=== PATIENT | female | born 1975 | race African-American/Black ===

== ENCOUNTER 2016-05-28 07:19 | Day surgery (SDC) | payer MEDICARE, MEDICAID ==
[~2016-05-28] VITALS: Ht 160 cm; Wt 72.7 kg
[~2016-05-28 07:19] MED LIST: ADVA500A INH; ALBUAER3 INH; DICY20TA10 PO; DULO1CAP3 PO; METH500T3 PO; MIRA50TA PO; NEUR300C PO; NORT25CA PO; OMEP40CA2 PO; OXYC1CAP PO; QUET1TAB7 PO; SPIRCAP INH; SUCR1TAB PO; VARE1 PO; ZOFR4SOL PO
[2016-05-28 07:35] VITALS: BP 133/86; PULSE 82; RESP 20; TEMP 98.5; O2SAT 98
[2016-05-28] MEDS ORDERED: VARE1 PO (07:42)
[2016-05-28 08:42] LABS: HEMATOCRIT 28.1 % (35.0-46.0); HEMO FLAGS AUTO DIFF; MEAN CELL VOLUME 74.9 FL (80.0-100.0); MEAN CORPUSCULAR HEMOGLOBIN 23.9 PG (27.0-34.0); MEAN CORPUSCULAR HGB CONC 31.9 % (32.0-36.0); PLATELET COUNT 311 TH/MM3 (150-450); RED BLOOD COUNT 3.75 MIL/MM3 (4.00-5.30); RED CELL DISTRIBUTION WIDTH 20.4 % (11.6-17.2); WHITE BLOOD COUNT 10.1 TH/MM3 (4.0-11.0)
[2016-05-28 08:57] LABS: APTT (PATIENT) 28.2 SEC (24.3-30.1); PROTHROMBIN TIME - PATIENT 10.5 SEC (9.8-11.6)
[2016-05-28] MEDS ORDERED: SODIUM CHLOR 0.9% 1000 ML INJ 1,000 ML IV SCH (09:00)
[2016-05-28 09:04] LABS: BICARBONATE 30.4 MEQ/L (21.0-32.0); POTASSIUM 3.5 MEQ/L (3.5-5.1)
[2016-05-28 09:14] LABS: BASOPHILS 1 % (0-2); EOSINOPHILS 2 % (0-4); NEUTROPHIL # MANUAL DIFF 7.2 TH/MM3 (1.8-7.7); POLYS (SEG NEUTROPHILS) 71 % (16-70); TARGET CELLS 1+ (NORMAL); WBC DIFF SAMPLE 100
[2016-05-28 09:15] LABS: PLATELET ESTIMATE SMEAR NORMAL (NORMAL); PLATELET MORPHOLOGY NORMAL (NORMAL); SCAN/DIFF FINAL DIFF MANUAL
[2016-05-28] MEDS ORDERED: LORazepam 2 MG/ML VIAL ONE (09:26)
[2016-05-28 10:00] VITALS: BP 126/82; PULSE 79; RESP 16; TEMP 98.6; O2SAT 96
--- NOTE | 2016-05-28 10:07 | PD.RAD ---
Post Procedure Progress Note Pre Procedure Diagnosis: (1) Pseudotumor cerebri Post Procedure Diagnosis: (1) Pseudotumor cerebri Procedure Date: May 28, 2016 Supervising Radiologist: Vahe Brizuela Proceduralist/Assist: Natasha Haro, RT(R)(CV), Bree Bravo RT(R) Anesthesia: Local Plan of Activity Patient to Unit: ROPU Patient Condition: Good See PACS Report for procedural detail/treatment Spinal Procedure Lumbar Puncture L1-L2 Fluid Removal (CCs): 21 Fluid Description: Clear Puncture Time: 09:50 Findings: OP 25 cm H2O CP 9.5 cm H2O Vahe Brizuela MD May 28, 2016 10:07
--- NOTE | 2016-05-28 10:55 | RADRPT ---
EXAM DATE/TIME: 05/28/2016 09:30 [facility] COMPARISON: LUMBAR PUNCTURE W/OPENING PRESSURES, January 31, 2015, 8:48. INDICATIONS : Patient with history of pseudotumor cerebri in need of lumbar puncture. MEDICAL HISTORY : Asthma, COPD, Migraines, GERD, Back pain, Benign intracranial hypertension SURGICAL HISTORY : ANTHROPOLOGICAL LINGUIST shunt placement, Multiple lumbar surgeries, Bronchoscopy ENCOUNTER: Subsequent ACUITY: >1 year PAIN SCORE: 0/10 LUMBAR PUNCTURE TIME: 0950 hours FLUORO TIME: 2.4 minutes IMAGE SERIES: 0 ACCESS LEVEL: L1-2 OPENING PRESSURE: 25 cm of water CLOSING PRESSURE: 9.5 cm of water FLUID: 21 cc of clear CSF was collected and sent to the laboratory for analysis. PROCEDURE : 1. Fluoroscopic guided lumbar puncture. 2. Recording of opening pressure. The risks, benefits and alternatives to the procedure were explained and verbal and written consent w as obtained. The site was prepped in sterile fashion. Full sterile technique was used, including ca p, mask, sterile gloves and gown and a large sterile sheet. Hand hygiene and 2% chlorhexidine and/or betadine/alcohol prep was utilized per protocol for cutaneous antisepsis. The skin and subcutaneous tissues were infiltrated with local anesthetic solution. With fluoroscopic guidance the lumbar thecal sac was punctured at the above level described above and the opening pressure was recorded. The above described fluid was removed without difficulty. The patient tolerated the procedure well and there were no complications. CONCLUSION: Uncomplicated fluoroscopically guided lumbar puncture with pressures as above. Vahe Brizuela MD on May 28, 2016 at 10:53 Board Certified Radiologist. This report was verified electronically.
[2016-05-28 11:20] LABS: GROSS BLOOD TUBE #1 0 (0); GROSS BLOOD TUBE #2 0 (0); GROSS BLOOD TUBE #3 0 (0); SUPERNATE COLOR TUBE #1 CLEAR (CLEAR); SUPERNATE COLOR TUBE #2 CLEAR (CLEAR); SUPERNATE COLOR TUBE #3 CLEAR (CLEAR); VOLUME TUBE # 1 7.9 ML; VOLUME TUBE # 2 7.8 ML; WBC TUBE #1 1 /MM3 (0-10)
[2016-05-28 11:21] LABS: CSF LYMPHOCYTES 100 %; CSF NEUTROPHILS 0 %
[2016-05-28 11:27] LABS: GROSS BLOOD TUBE #3 0 (0); SUPERNATE COLOR TUBE #3 CLEAR (CLEAR)
[2016-05-28 11:28] LABS: CSF LYMPHOCYTES 0 %; CSF NEUTROPHILS 0 %; WBC TUBE #3 0 /MM3 (0-10)
[2016-05-28 12:00] VITALS: BP 119/76; PULSE 72; RESP 16; O2SAT 96
[2016-07-11] MEDS ORDERED: LIDO1%30P SUBMUCOS (12:31)
[2016-07-19] MEDS ORDERED: DULO1CAP3 PO (11:07)
== END 2016-05-28 12:20 | disposition home or self-care (01) ==
LOC: HRAD 07:19 → HRIP 07:20 → HRAD 12:20
PROVIDERS: ATTEND Specialist
DX: G93.2 Benign intracranial hypertension (principal); Z79.899 Other long term (current) drug therapy
CPT/HCPCS: 62270; 77003; 80048; 82945; 84157; 85007; 85027; 85610; 85730; 87070; 87205; 89051; J2060; J7030; 76937

== ENCOUNTER 2016-12-26 04:25 | Inpatient (IN) | payer MEDICARE, MEDICAID ==
[~2016-12-26] VITALS: Ht 165.1 cm; Wt 71.6 kg
[2016-12-26] VITALS (7 sets, daily range): BP systolic 108–136; BP diastolic 67–89; PULSE 60–75; RESP 16–18; TEMP 98–98.8; O2SAT 98–100
[2016-12-26] MEDS ORDERED: IOHEXOL 350 MG/ML 10 ML VIAL (for RAD DIAG) IVCONTRAST ONE (05:29)
[2016-12-26] MEDS ORDERED: SODIUM CHLOR 0.9% 1000 ML INJ 1,000 ML IV ONE (05:30)
[2016-12-26] MEDS ORDERED: ONDANSETRON HCL 4 MG/2 ML VIAL IV ONE (05:30)
[2016-12-26] MEDS ORDERED: HYDROmorphone HCL PF 1 MG/ML VIAL IV PUSH ONE ×2 (05:45→06:30)
--- NOTE | 2016-12-26 05:46 | RADRPT ---
EXAM DATE/TIME: 12/26/2016 05:18 [facility] COMPARISON: No previous studies available for comparison. INDICATIONS : Abdominal pain. IV CONTRAST: 96 cc Omnipaque 350 (iohexol) IV ORAL CONTRAST: No oral contrast ingested. RADIATION DOSE: CTDIvol (mGy) MEDICAL HISTORY : Chronic obstructive pulmonary disease. Gastroesophageal reflux disease. Asthma SURGICAL HISTORY : Tubal ligation. THAI MASSEUR shunt ENCOUNTER: Initial ACUITY: 4 - 6 days PAIN SCALE: 6/10 LOCATION: abdomen TECHNIQUE: Volumetric scanning of the abdomen and pelvis was performed. Using automated exposure control and ad justment of the mA and/or kV according to patient size, radiation dose was kept as low as reasonably achievable to obtain optimal diagnostic quality images. DICOM format image data is available electro nically for review and comparison. FINDINGS: There is bibasilar edema versus pneumonia. The liver and spleen are normal in size and no focal defec ts are identified. The gallbladder is absent. The pancreas demonstrates normal contour without eviden ce of mass or ductal dilatation. The intrahepatic ducts and common bile duct are prominent which may reflect reservoir effect. Shunt catheter is present entering the upper abdomen in the midline. There are loops of the catheter protruding into a subcutaneous fluid collection measuring 5 cm in diameter. The catheter tip terminates in the lower abdomen. The adrenal glands and kidneys appear normal bilat erally. No hydronephrosis or mass lesions are identified. Examination of the pelvis demonstrates no evidence of free fluid or pelvic mass. No abnormally enlarg ed inguinal or retroperitoneal lymph nodes are present. The bladder is unremarkable. CONCLUSION: 1. No evidence of acute abdominal or pelvic process. No masses are identified. 2. Shunt catheter as above herniating into the subcutaneous tissues containing fluid. Rickie Ford MD on December 26, 2016 at 5:40 Board Certified Radiologist. This report was verified electronically.
[2016-12-26 05:50] LABS: ALT (GPT) 9 U/L (10-53); ANION GAP 7 MEQ/L (5-15); AST (GOT) 12 U/L (15-37); BICARBONATE 29.4 MEQ/L (21.0-32.0); BLOOD UREA NITROGEN 4 MG/DL (7-18); CHLORIDE 104 MEQ/L (98-107); GLOMERULAR FILTRATION RATE 146 ML/MIN (>89); POTASSIUM 3.3 MEQ/L (3.5-5.1); SODIUM (NA) 140 MEQ/L (136-145)
[2016-12-26 05:54] LABS: ALKALINE PHOSPHATASE 115 U/L (45-117); TOTAL BILIRUBIN ADULT 0.1 MG/DL (0.2-1.0)
[2016-12-26 06:03] LABS: HEMATOCRIT 31.9 % (35.0-46.0); MEAN CELL VOLUME 77.8 FL (80.0-100.0); MEAN CORPUSCULAR HEMOGLOBIN 25.3 PG (27.0-34.0); MEAN CORPUSCULAR HGB CONC 32.5 % (32.0-36.0); PLATELET COUNT 414 TH/MM3 (150-450); RED CELL DISTRIBUTION WIDTH 18.4 % (11.6-17.2); WHITE BLOOD COUNT 9.8 TH/MM3 (4.0-11.0)
[2016-12-26 06:07] LABS: HEMO FLAGS AUTO DIFF
--- NOTE | 2016-12-26 06:07 | PD ---
HPI Chief Complaint: Abdominal Pain Time Seen by Provider: 04:36 Travel History International Travel<30 days: No Contact w/Intl Traveler<30days: No Traveled to known affect area: No History of Present Illness HPI So 41 year-old woman presents to the emergency department complaining of pain nausea vomiting and tender swelling in her abdominal wall. She had a AUTOMOTIVE WINDOW TINTER shunt revised by a physician Dr. Pennington in July. Starting in August she started getting pain and tenderness in her abdominal wall. She was seen in [facility] and had a CT scan that showed loculated fluid collection in the anterior abdominal wall August 28. Of note, she is under a different ) for that visit. She states that she was told to she states she has followed up with her neurosurgeon who states that she needs to see a general surgeon. She sees Dr. Vences for neurology. She states that despite this is been unable follow-up with a neurosurgeon. Over the past week she's had progressive worsening nausea vomiting and abdominal pain is been unable tolerate by mouth. History Past Medical History Narrative Medical Sarcoidosis COPD Pseudotumor Tetanus Vaccination: Unknown LMP: CURRENT Menopausal: No : 4 Para: 3 Social History Alcohol Use: No Tobacco Use: Yes (/2 PPD) Allergies-Medications (Allergen,Severity, Reaction): Coded Allergies: morphine (Unverified Allergy, Severe, WELNORI, 12/26/16) MRI PRECAUTION (Verified Adverse Reaction, Severe, SPETZLER SHUNT VALVE PER YAMILE. PER INTEGRA NOT COMPAT., 12/26/16) Reported Meds & Prescriptions Reported Meds & Active Scripts Active Duloxetine DR (Duloxetine HCl) 60 Mg Capdr 60 Mg PO DAILY Please return to clinic for annual exam and labs. Spiriva Handihaler (Tiotropium Inh) 18 Mcg Cap 18 Mcg INH DAILY Proair Hfa 8.5 GM Inh (Albuterol Sulfate) 90 Mcg/Act Aer 2 Puff INH Q6H PRN 108 mcg/actuation Quetiapine (Quetiapine Fumarate) 25 Mg Tab 25 Mg PO HS Nortriptyline (Nortriptyline HCl) 25 Mg Cap 25 Mg PO HS Reported Chantix (Varenicline) 1 Mg Tab 1 Mg PO BIDPC Advair Diskus Inh (Fluticasone-Salmeterol Inh) 500-50 Mcg/Blist Aer 1 Puff INH BID Rinse mouth after use. Dicyclomine (Dicyclomine HCl) 20 Mg Tab 20 Mg PO BID Sucralfate 1 Gm Tab 1 Gm PO TIDACHS on empty stomach Omeprazole 40 Mg Cap 40 Mg PO BIDAC Zofran Liq (Ondansetron HCl) 4 Mg/5 Ml Soln 1 Tab PO TID PRN Oxycodone (Oxycodone HCl) 5 Mg Cap 5 Mg PO BID PRN Methocarbamol 500 Mg Tab 500 Mg PO TID Myrbetriq (Mirabegron) 50 Mg Tab 50 Mg PO DAILY Neurontin (Gabapentin) 300 Mg Cap 300 Mg PO TID Review of Systems Except as stated in HPI: all other systems reviewed are Neg Physical Exam Narrative GENERAL: Generally well-appearing, no acute distress. SKIN: Decreased skin turgor. HEAD: Atraumatic. Normocephalic. EYES: Pupils equal and round. No scleral icterus. No injection or drainage. ENT: No nasal bleeding or discharge. Mucous membranes pink and moist. NECK: Trachea midline. No JVD. CARDIOVASCULAR: Regular rate and rhythm. No murmur appreciated. RESPIRATORY: No accessory muscle use. Clear to auscultation. Breath sounds equal bilaterally. GASTROINTESTINAL: Abdomen is flat and soft. Well-healed surgical scars. On the left side of the abdomen there is a firm palpable obvious nodule in the abdominal wall that Protrudes almost like a ventral hernia however it firm, tender, and is on attached to the underlying abdomen. MUSCULOSKELETAL: No obvious deformities. No clubbing. No cyanosis. No edema. Data Data Last Documented VS Vital Signs Date Time Temp Pulse Resp B/P (MAP) Pulse Ox O2 Delivery O2 Flow Rate FiO2 12/26/16 06:10 70 16 133/75 (94) 98 Room Air 12/26/16 04:27 98.5 Orders Orders Complete Blood Count With Diff (12/26/16 05:10) Comprehensive Metabolic Panel (12/26/16 05:10) Iv Access Insert/Monitor (12/26/16 05:10) Ct Abd/Pel W Iv Contrast(Rout) (12/26/16 ) Sodium Chlor 0.9% 1000 Ml Inj (Ns 1000 M (12/26/16 05:30) Ondansetron Inj (Zofran Inj) (12/26/16 05:30) Iohexol 350 Inj (Omnipaque 350 Inj) (12/26/16 05:29) Hydromorphone Pf Inj (Dilaudid Pf Inj) (12/26/16 05:45) Admit Order (Ed Use Only) (12/26/16 ) Vital Signs (Adult) Q4H (12/26/16 06:16) Diet Npo (12/26/16 Breakfast) Activity Oob With Assistance (12/26/16 06:16) Notify Dr: Other (12/26/16 06:16) Hydromorphone Pf Inj (Dilaudid Pf Inj) (12/26/16 06:30) Consult Neurology (12/26/16 ) Consult General Surgery (12/26/16 ) Labs Laboratory Tests Test 12/26/16 05:20 White Blood Count 9.8 TH/MM3 Red Blood Count 4.10 MIL/MM3 Hemoglobin 10.4 GM/DL Hematocrit 31.9 % Mean Corpuscular Volume 77.8 FL Mean Corpuscular Hemoglobin 25.3 PG Mean Corpuscular Hemoglobin Concent 32.5 % Red Cell Distribution Width 18.4 % Platelet Count 414 TH/MM3 Mean Platelet Volume 8.8 FL CBC Comment AUTO DIFF Blood Urea Nitrogen 4 MG/DL Creatinine 0.56 MG/DL Random Glucose 89 MG/DL Total Protein 7.4 GM/DL Albumin 3.2 GM/DL Calcium Level 8.2 MG/DL Alkaline Phosphatase 115 U/L Aspartate Amino Transf (AST/SGOT) 12 U/L Alanine Aminotransferase (ALT/SGPT) 9 U/L Total Bilirubin 0.1 MG/DL Sodium Level 140 MEQ/L Potassium Level 3.3 MEQ/L Chloride Level 104 MEQ/L Carbon Dioxide Level 29.4 MEQ/L Anion Gap 7 MEQ/L Estimat Glomerular Filtration Rate 146 ML/MIN [facility] Medical Decision Making Medical Screen Exam Complete: Yes Emergency Medical Condition: Yes Interpretation(s) LABS: CBC is pending CMP unremarkable CT abdomen and pelvis: No evidence acute abdominal process. Shunt catheter herniating into the subcutaneous tissues containing fluid. Differential Diagnosis Shunt catheter obstruction, vomiting, CSF Roxann, other Narrative Course 41 year-old woman with what appears to be a shunt catheter malfunction with CSF Roxann involving the anterior abdominal wall, there for some time but getting progressively worse and now resulting in intractable pain and vomiting. I spoke with Dr. Vences, with neurology, recommends admission for routine neurosurgery consultation, neurology consultation, may need surgical revision or may need referral for outpatient follow-up. Diagnosis Primary Impression: Intractable abdominal pain Additional Impression: Mechanical complication-ventricular(CSF) communicating shunt Admitting Information Admitting Physician Requests: Boby Fritz MD Dec 26, 2016 06:07
[2016-12-26] MEDS ORDERED: SODIUM CHLOR 0.9% 1000 ML INJ 1,000 ML IV SCH (06:29)
[2016-12-26] MEDS ORDERED: FAMOTIDINE 20 MG/2 ML VIAL IV PUSH SCH (06:30)
[2016-12-26] MEDS ORDERED: TRIMETHOBENZAMIDE INJ 200 MG/2 ML VIAL IM PRN (06:30)
[2016-12-26] MEDS ORDERED: LACTULOSE SYRUP 20 GM/30 ML CUP PO PRN (06:30)
[2016-12-26] MEDS ORDERED: SENNOSIDES 8.6 MG TAB PO PRN (06:30)
[2016-12-26] MEDS ORDERED: BISACODYL 10 MG SUPP RECTAL PRN (06:30)
[2016-12-26] MEDS ORDERED: SODIUM CHLORIDE 0.9% FLUSH 10 ML FLUSH IV FLUSH PRN (06:30)
[2016-12-26] MEDS ORDERED: MAGNESIUM HYDROXIDE SUSP 30 ML CUP PO PRN (06:30)
[2016-12-26 06:50] LABS: EOSINOPHILS 1 % (0-4); NEUTROPHIL # MANUAL DIFF 5.9 TH/MM3 (1.8-7.7); POLYS (SEG NEUTROPHILS) 60 % (16-70); WBC DIFF SAMPLE 100
[2016-12-26 06:51] LABS: OVALOCYTES 1+ (NORMAL); TARGET CELLS 1+ (NORMAL)
[2016-12-26 06:52] LABS: TEARDROP RBCS 1+ (NORMAL)
[2016-12-26 06:53] LABS: PLATELET ESTIMATE SMEAR NORMAL (NORMAL); PLATELET MORPHOLOGY ENLARGED (NORMAL); SCAN/DIFF FINAL DIFF MANUAL
[2016-12-26] MEDS ORDERED: POTASSIUM CHLORIDE 10 MEQ CONTROLLED RELEASE TAB PO ONE (08:45)
[2016-12-26] MEDS ORDERED: ALBUTEROL SULFATE 90 MCG/ACT HFA 8 GM INHALER INH PRN (08:45)
[2016-12-26] MEDS: NS + KCL 20 MEQ INJ 1,000 ML IV SCH ×2 (08:58→21:45)
[2016-12-26] MEDS: DOCUSATE SODIUM 50 MG/SENNA 8.6 MG TAB PO SCH ×2 (08:59→21:47)
[2016-12-26] MEDS: ACETAMINOPHEN 325 MG TAB PO PRN (08:59)
[2016-12-26] MEDS: METHOCARBAMOL 500 MG TAB PO SCH ×3 (08:59→18:41)
[2016-12-26] MEDS: GABAPENTIN 300 MG CAP PO SCH ×3 (08:59→18:41)
[2016-12-26] MEDS ORDERED: NON-FORMULARY DRUG (Fluticasone-Salmeterol Inh (Advair Diskus Inh) 1 PUFF) INH SCH (09:00)
[2016-12-26] MEDS: TIOTROPIUM BROMIDE 18 MCG INH INH SCH (09:00)
[2016-12-26] MEDS: ONDANSETRON HCL 4 MG/2 ML VIAL IVP PRN (09:00)
[2016-12-26] MEDS: SODIUM CHLORIDE 0.9% FLUSH 10 ML FLUSH IV FLUSH SCH ×2 (09:00→21:46)
--- NOTE | 2016-12-26 09:34 | HHI.HP ---
[facility] Unknown Admission Diagnosis intractable pain, abdominal wall CSFoma Diagnoses: Chief Complaint: abdominal pain Travel History International Travel<30 Days: No Contact w/Intl Traveler <30 Da: No Traveled to Known Affected Are: No History of Present Illness Written by Bree Lamar, acting as scribe for Dr. Ta on 12/26/16 at 09: 29. This note was transcribed by scribe Bree Lamar. I, Dr. Naveen Ta personally performed the history, physical exam, and medical decision making; and confirmed the accuracy of the information in the transcribed note. Authenticated by Dr. Naveen Ta on 12/26/16 at 09:38. 41-year-old female with history of pseudotumor cerebri s/p HELICOPTER CREW CHIEF shunt, sarcoidosis , COPD, tobacco use, presents with ongoing abdominal pain, nausea, and vomiting. The patient reports diffuse burning abdominal pain associated with nausea and vomiting. She has not been able to tolerate oral intake for 4 days. She has been taking Lortab at home with no relief of the pain. Denies fevers/ chills. She also reports constant sharp stabbing left sided headache. Denies any visual changes, lightheadedness, or dizziness. She denies any dysuria or suprapubic pain. She also reports constipation with no bowel movement in 1 week. The patient reports she has been seeing Dr. Vences who has referred her to general surgery however she has had no success. She states she's also discussed with her neurosurgeon Dr. Pennington in [place], [place] who reportedly refuses to see the patient. The patient has no other medical complaints at this time including no chest pain, shortness of breath, or urinary complaints. Review of Systems Except as stated in HPI: all other systems reviewed are Neg Past Family Social History Past Medical History Pseudotumor cerebri Sarcoidosis COPD Past Surgical History HELICOPTER CREW CHIEF shunt placement and revisions Tubal ligation Bronchoscopy Neck surgery Multiple lumbar surgeries Lung biopsy Cholecystectomy Reported Medications Duloxetine DR (Duloxetine HCl) 60 Mg Capdr 60 Mg PO DAILY Please return to clinic for annual exam and labs. Spiriva Handihaler (Tiotropium Inh) 18 Mcg Cap 18 Mcg INH DAILY Proair Hfa 8.5 GM Inh (Albuterol Sulfate) 90 Mcg/Act Aer 2 Puff INH Q6H PRN 108 mcg/actuation Quetiapine (Quetiapine Fumarate) 25 Mg Tab 25 Mg PO HS Nortriptyline (Nortriptyline HCl) 25 Mg Cap 25 Mg PO HS Ativan (Lorazepam) 0.5 Mg Tab 0.5 Mg PO Q8H PRN Oxycodone (Oxycodone HCl) 10 Mg Tab 10 Mg PO Q6H PRN Fioricet (Tgaodsuziy-Vlypxpmrkpbqx-Sqrnclfj) 50-300-40 Mg Cap 2 Cap PO Q4H PRN Chantix (Varenicline) 1 Mg Tab 1 Mg PO BIDPC Advair Diskus Inh (Fluticasone-Salmeterol Inh) 500-50 Mcg/Blist Aer 1 Puff INH BID Rinse mouth after use. Dicyclomine (Dicyclomine HCl) 20 Mg Tab 20 Mg PO BID Omeprazole 40 Mg Cap 40 Mg PO BIDAC Methocarbamol 500 Mg Tab 500 Mg PO TID Myrbetriq (Mirabegron) 50 Mg Tab 50 Mg PO DAILY Neurontin (Gabapentin) 300 Mg Cap 300 Mg PO TID Allergies: Coded Allergies: morphine (Unverified Allergy, Severe, WELTS, 12/26/16) MRI PRECAUTION (Verified Adverse Reaction, Severe, SPETZLER SHUNT VALVE PER YAMILE. PER [employer]TEGRA NOT COMPAT., 12/26/16) Active Ordered Medications Current Medications Medications (Trade) Dose Ordered Sig/Esteban Route Start Time Stop Time Status Last Admin (NS Flush) 2 ml UNSCH PRN IV FLUSH 12/26/16 06:30 (NS Flush) 2 ml BID IV FLUSH 12/26/16 09:00 (Zofran Inj) 4 mg Q6H PRN IVP 12/26/16 06:30 12/26/16 09:00 (Tylenol) 650 mg Q6H PRN PO 12/26/16 06:30 12/26/16 08:59 (Roxicodone) 5 mg Q4H PRN PO 12/26/16 06:30 (Nadeen-Colace) 1 tab BID PO 12/26/16 09:00 12/26/16 08:59 (Milk Of Magnesia Liq) 30 ml Q12H PRN PO 12/26/16 06:30 (Senokot) 17.2 mg Q12H PRN PO 12/26/16 06:30 (Dulcolax Supp) 10 mg DAILY PRN RECTAL 12/26/16 06:30 (Lactulose Liq) 30 ml DAILY PRN PO 12/26/16 06:30 (Dilaudid Pf Inj) 0.5 mg Q4H PRN IV PUSH 12/26/16 06:30 (Tigan Inj) 200 mg Q6H PRN IM 12/26/16 06:30 (Bentyl) 20 mg BID PO 12/26/16 09:00 12/26/16 09:51 (Neurontin) 300 mg TID PO 12/26/16 09:00 12/26/16 08:59 (Robaxin) 500 mg TID PO 12/26/16 09:00 12/26/16 08:59 (Spiriva Inh) 18 mcg DAILY INH 12/26/16 09:00 Potassium Chloride/Sodium Chloride 1,000 ml @ 84 mls/hr [id number] IV 12/26/16 08:45 12/26/16 08:58 (Proair Hfa Inh) 2 puff Q6H PRN INH 12/26/16 08:45 Non-Formulary Medication 1 puff BID INH 12/26/16 09:00 (Roxicodone) 10 mg Q4H PRN PO 12/26/16 09:45 12/26/16 11:11 (Cymbalta Dr) 60 mg DAILY PO 12/27/16 09:00 (Ativan) 0.5 mg Q8H PRN PO 12/26/16 11:00 (Pamelor) 25 mg HS PO 12/26/16 21:00 (SEROquel) 25 mg HS PO 12/26/16 21:00 Patient Own Medication PT OWN MED: NOAM... Q4H PRN PO 12/26/16 12:15 Future Hold (Detrol La) 4 mg DAILY PO 12/27/16 09:00 (Protonix Inj) 40 mg Q12H IV PUSH 12/26/16 12:15 UNV (Carafate Liq) 1 gm ACHS PO 12/26/16 17:00 UNV Family History Mother with lymphoma Grandmother with CVA and diabetes Grandfather with colorectal cancer, Social History Smokes tobacco 1/2 PPD Denies any alcohol or illicit drug use Physical Exam Vital Signs Vital Signs Date Time Temp Pulse Resp B/P (MAP) Pulse Ox O2 Delivery O2 Flow Rate FiO2 12/26/16 08:30 98.2 60 16 136/80 (98) 100 12/26/16 06:10 70 16 133/75 (94) 98 Room Air 12/26/16 04:35 16 12/26/16 04:27 98.5 74 16 129/79 (96) 100 Physical Exam GENERAL: Well-nourished, well-developed middle aged female patient in [facility]. SKIN: Warm and dry. No rash. HEAD: Normocephalic. Atraumatic. EYES: Pupils equal and round. No scleral icterus. No injection or drainage. ENT: No nasal bleeding or discharge. Mucous membranes pink and moist. NECK: Supple. Trachea midline. CARDIOVASCULAR: Regular rate and rhythm. S1, S2 noted. No murmur appreciated. RESPIRATORY: No accessory muscle use. Clear to auscultation. Breath sounds equal bilaterally. GASTROINTESTINAL: Abdomen soft, nondistended, mild diffuse TTP with shunt protrusion into abdominal wall. Normoactive bowel sounds x4. MUSCULOSKELETAL: No obvious deformities. Extremities without clubbing, cyanosis , or edema. NEUROLOGICAL: Awake and alert. No obvious cranial nerve deficits. Motor grossly within normal limits. Moves all extremities spontaneously. Normal speech. PSYCHIATRIC: Tearful mood; insight and judgment normal. Laboratory Laboratory Tests Test 12/26/16 05:20 White Blood Count 9.8 Red Blood Count 4.10 Hemoglobin 10.4 Hematocrit 31.9 Mean Corpuscular Volume 77.8 Mean Corpuscular Hemoglobin 25.3 Mean Corpuscular Hemoglobin Concent 32.5 Red Cell Distribution Width 18.4 Platelet Count 414 Mean Platelet Volume 8.8 CBC Comment AUTO DIFF Differential Total Cells Counted 100 Neutrophils % (Manual) 60 Lymphocytes % 38 Monocytes % 1 Eosinophils % 1 Neutrophils # (Manual) 5.9 Differential Comment FINAL DIFF MANUAL Atypical Lymphocytes Platelet Estimate NORMAL Platelet Morphology Comment ENLARGED Target Cells 1+ Tear Drop Cells 1+ Ovalocytes 1+ Blood Urea Nitrogen 4 Creatinine 0.56 Random Glucose 89 Total Protein 7.4 Albumin 3.2 Calcium Level 8.2 Alkaline Phosphatase 115 Aspartate Amino Transf (AST/SGOT) 12 Alanine Aminotransferase (ALT/SGPT) 9 Total Bilirubin 0.1 Sodium Level 140 Potassium Level 3.3 Chloride Level 104 Carbon Dioxide Level 29.4 Anion Gap 7 Estimat Glomerular Filtration Rate 146 Result Diagram: 12/26/1620 12/26/16 0520 Imaging Last Impressions Abdomen/Pelvis CT 12/26/16 0000 Signed Impressions: Service Date/Time: Wednesday, December 26, 2016 05:18 - CONCLUSION: 1. No evidence of acute abdominal or pelvic process. No masses are identified. 2. Shunt catheter as above herniating into the subcutaneous tissues containing fluid. MD Bienvenido Otero VTE Risk Assessment Caprinoctavio VTE Risk Assessment: No/Low Risk (score <= 1) Caprini Risk Assessment Model Point Value = 1 Point Value = 2 Point Value = 3 Point Value = 5 Age 41-60 Minor surgery BMI > 25 kg/m2 Swollen legs Varicose veins or History of unexplained or recurrent spontaneous Oral contraceptives or hormone replacement Sepsis (< 1 month) Serious lung disease, including pneumonia (< 1 month) Abnormal pulmonary function Acute myocardial infarction Congestive heart failure (< 1 month) History of inflammatory bowel disease Medical patient at bed rest Age 61-74 Arthroscopic surgery Major open surgery (> 45 min) Laparoscopic surgery (> 45 min) Malignancy Confined to bed (> 72 hours) Immobilizing plaster cast Central venous access Age >= 75 History of VTE Family history of VTE Factor V Leiden Prothrombin [id number] Lupus anticoagulant Anticardiolipin antibodies Elevated serum homocysteine Heparin-induced thrombocytopenia Other congenital or acquired thrombophilia Stroke (< 1 month) Elective arthroplasty Hip, pelvis, or leg fracture Acute spinal cord injury (< 1 month) Prophylaxis Regimen Total Risk Factor Score Risk Level Prophylaxis Regimen 0-1 Low Early ambulation 2 Moderate Order ONE of the following: *Sequential Compression Device (SCD) *Heparin 5000 units SQ BID 3-4 Higher Order ONE of the following medications: *Heparin 5000 units SQ TID *Enoxaparin/Lovenox 40 mg SQ daily (WT < 150 kg, CrCl > 30 mL/min) *Enoxaparin/Lovenox 30 mg SQ daily (WT < 150 kg, CrCl > 10-29 mL/min) *Enoxaparin/Lovenox 30 mg SQ BID (WT < 150 kg, CrCl > 30 mL/min) AND/OR *Sequential Compression Device (SCD) 5 or more Highest Order ONE of the following medications: *Heparin 5000 units SQ TID (Preferred with Epidurals) *Enoxaparin/Lovenox 40 mg SQ daily (WT < 150 kg, CrCl > 30 mL/min) *Enoxaparin/Lovenox 30 mg SQ daily (WT < 150 kg, CrCl > 10-29 mL/min) *Enoxaparin/Lovenox 30 mg SQ BID (WT < 150 kg, CrCl > 30 mL/min) AND *Sequential Compression Device (SCD) Assessment and Plan Problem List: (1) vp biology shunt malfunction (2) Intractable abdominal pain ICD Code: R10.9 - Unspecified abdominal pain Status: Acute Assessment and Plan 41-year-old female with history of pseudotumor cerebri s/p HELICOPTER CREW CHIEF shunt, sarcoidosis , COPD, tobacco use, presents with ongoing abdominal pain, nausea, and vomiting. HELICOPTER CREW CHIEF Shunt Malfunction at Abdominal Wall: patient with headache/nausea/vomiting/ abdominal pain, hx of HELICOPTER CREW CHIEF shunt. Abd/pelvis CT images reviewed, shows shunt catheter herniating into the subcutaneous tissues containing fluid. -Consult general surgery, discussed with Dr. Aviles, recommends neurosurgery evaluation -Consulted neurology -Consider further imaging including head CT/shuntogram -Supportive treatment with IVF, antiemetics, and pain control with oxycodone prn and IV dilaudid prn breakthrough pain Abdominal Pain/Nausea/Vomiting: suspect secondary to above, however will rule out other etiologies -Started on PPI, Bentyl, and Carafate -Supportive treatment with IVF, antiemetics, and pain control prn -Consult GI for further recommendations Headache: suspect secondary to above -consider brain imaging however will defer to neurology -continue pain control prn Hypokalemia: K 3.3, suspect secondary to recent vomiting and poor oral intake. Mag 2.0. -give po KCl replacement -repeat BMP, monitor K, replace as needed COPD: chronic, stable, does not appear to be in exacerbation -continue patient's Advair and Spiriva -Albuterol nebs prn Anxiety/Depression/Chronic Pain: chronic -continue patient's home meds including methocarbamol, gabapentin, duloxetine , nortriptyline, seroquel, and ativan prn -continue to monitor All other medical conditions stable, continue home medications as appropriate. DVT Prophylaxis: teds/SCDs Discussed Condition With Patient, Corine Goncalves RN, Kristine F PA-C Dec 26, 2016 09:34 Naveen Ta MD Dec 26, 2016 09:38
[2016-12-26] MEDS: DICYCLOMINE HCL 20 MG TAB PO SCH ×2 (09:51→21:47)
[2016-12-26] MEDS ORDERED: LORA-392 PO (09:51)
[2016-12-26] MEDS ORDERED: BUTA1CAP PO (09:51)
[2016-12-26] MEDS ORDERED: OXYC-395 PO (09:51)
[2016-12-26] MEDS ORDERED: LORazepam 0.5 MG TAB PO PRN (11:00)
[2016-12-26] MEDS ORDERED: FIORICET PO PRN (12:15)
--- NOTE | 2016-12-26 12:23 | PD.CONS ---
[facility] Service General Surgery Consult Requested By Dr. Hicks Reason for Consult AIRPORT DRIVER shunt causing abdominal pain Primary Care Physician Unknown History of Present Illness 41-year-old female with history of AIRPORT DRIVER shunt placed in July 2016 for pseudotumor cerebri presents with abdominal pain which has basically been ongoing since placement. She has had an enlarging bulge in the left upper abdomen since placement as well. This is been causing significant and progressive pain. She has been taking BC powder for about 2 months due to the pain. More recently she has had the faculty tolerating oral intake and burning epigastric pain as well as nausea and vomiting. In October 2015 from her description it sounds like she had laparotomy for cholecystectomy and repair of perforated peptic ulcer. She has been on omeprazole twice daily. She has not had a repeat endoscopy since that time. Her white blood count is normal. CT of the abdomen and pelvis shows shunt catheter protruding into the subcutaneous tissues of the abdomen and the fluid collection. I don't see any evidence of ventral hernia or bowel obstruction. Her neurosurgeon is over in [place]. Review of Systems Constitutional: DENIES: Fever, Chills Eyes: DENIES: Eye inflammation, Eye pain Respiratory: DENIES: Cough, Shortness of breath Cardiovascular: DENIES: Chest pain, Palpitations Gastrointestinal: COMPLAINS OF: Abdominal pain, Nausea, Vomiting Musculoskeletal: DENIES: Back pain, Neck pain Integumentary: DENIES: Pruritus, Rash Past Family Social History Past Medical History Pseudotumor cerebri COPD Sarcoidosis Peptic ulcer disease with history of perforation Past Surgical History AIRPORT DRIVER shunt placement July 2016 Laparotomy with possible repair of perforated ulcer and cholecystectomy per her history Reported Medications Reported Meds & Active Scripts Active Duloxetine DR (Duloxetine HCl) 60 Mg Capdr 60 Mg PO DAILY Please return to clinic for annual exam and labs. Spiriva Handihaler (Tiotropium Inh) 18 Mcg Cap 18 Mcg INH DAILY Proair Hfa 8.5 GM Inh (Albuterol Sulfate) 90 Mcg/Act Aer 2 Puff INH Q6H PRN 108 mcg/actuation Quetiapine (Quetiapine Fumarate) 25 Mg Tab 25 Mg PO HS Nortriptyline (Nortriptyline HCl) 25 Mg Cap 25 Mg PO HS Reported Ativan (Lorazepam) 0.5 Mg Tab 0.5 Mg PO Q8H PRN Oxycodone (Oxycodone HCl) 10 Mg Tab 10 Mg PO Q6H PRN Fioricet (Hzurwtfoyv-Urvxujrsdxoqy-Qziajyqm) 50-300-40 Mg Cap 2 Cap PO Q4H PRN Chantix (Varenicline) 1 Mg Tab 1 Mg PO BIDPC Advair Diskus Inh (Fluticasone-Salmeterol Inh) 500-50 Mcg/Blist Aer 1 Puff INH BID Rinse mouth after use. Dicyclomine (Dicyclomine HCl) 20 Mg Tab 20 Mg PO BID Omeprazole 40 Mg Cap 40 Mg PO BIDAC Methocarbamol 500 Mg Tab 500 Mg PO TID Myrbetriq (Mirabegron) 50 Mg Tab 50 Mg PO DAILY Neurontin (Gabapentin) 300 Mg Cap 300 Mg PO TID Allergies: Coded Allergies: morphine (Unverified Allergy, Severe, WELTS, 12/26/16) MRI PRECAUTION (Verified Adverse Reaction, Severe, SPETZLER SHUNT VALVE PER YAMILE. PER INTEGRA NOT COMPAT., 12/26/16) Active Ordered Medications Current Medications Medications (Trade) Dose Ordered Sig/Esteban Route Start Time Stop Time Status Last Admin (Pepcid Inj) 20 mg Q12H IV PUSH 12/26/16 06:30 12/26/16 06:43 (NS Flush) 2 ml UNSCH PRN IV FLUSH 12/26/16 06:30 (NS Flush) 2 ml BID IV FLUSH 12/26/16 09:00 (Zofran Inj) 4 mg Q6H PRN IVP 12/26/16 06:30 12/26/16 09:00 (Tylenol) 650 mg Q6H PRN PO 12/26/16 06:30 12/26/16 08:59 (Roxicodone) 5 mg Q4H PRN PO 12/26/16 06:30 (Nadeen-Colace) 1 tab BID PO 12/26/16 09:00 12/26/16 08:59 (Milk Of Magnesia Liq) 30 ml Q12H PRN PO 12/26/16 06:30 (Senokot) 17.2 mg Q12H PRN PO 12/26/16 06:30 (Dulcolax Supp) 10 mg DAILY PRN RECTAL 12/26/16 06:30 (Lactulose Liq) 30 ml DAILY PRN PO 12/26/16 06:30 (Dilaudid Pf Inj) 0.5 mg Q4H PRN IV PUSH 12/26/16 06:30 (Tigan Inj) 200 mg Q6H PRN IM 12/26/16 06:30 (Bentyl) 20 mg BID PO 12/26/16 09:00 12/26/16 09:51 (Neurontin) 300 mg TID PO 12/26/16 09:00 12/26/16 08:59 (Robaxin) 500 mg TID PO 12/26/16 09:00 12/26/16 08:59 (Spiriva Inh) 18 mcg DAILY INH 12/26/16 09:00 Potassium Chloride/Sodium Chloride 1,000 ml @ 84 mls/hr [id number] IV 12/26/16 08:45 12/26/16 08:58 (Proair Hfa Inh) 2 puff Q6H PRN INH 12/26/16 08:45 Non-Formulary Medication 1 puff BID INH 12/26/16 09:00 (Roxicodone) 10 mg Q4H PRN PO 12/26/16 09:45 12/26/16 11:11 (Cymbalta Dr) 60 mg DAILY PO 12/27/16 09:00 (Ativan) 0.5 mg Q8H PRN PO 12/26/16 11:00 (Pamelor) 25 mg HS PO 12/26/16 21:00 (SEROquel) 25 mg HS PO 12/26/16 21:00 Patient Own Medication PT OWN MED: NOAM... Q4H PRN PO 12/26/16 12:15 Future Hold (Detrol La) 4 mg DAILY PO 12/27/16 09:00 Family History Noncontributory Social History Smokes one half pack cigarettes daily. No alcohol. Physical Exam Vital Signs Vital Signs Date Time Temp Pulse Resp B/P (MAP) Pulse Ox O2 Delivery O2 Flow Rate FiO2 12/26/16 08:30 98.2 60 16 136/80 (98) 100 12/26/16 06:10 70 16 133/75 (94) 98 Room Air 12/26/16 04:35 16 12/26/16 04:27 98.5 74 16 129/79 (96) 100 Physical Exam GENERAL: Awake and alert. No acute distress. Cooperative. HEAD: Normocephalic. Atraumatic. NECK: Trachea midline. CHEST: Nonlabored breathing. No respiratory distress. CARDIOVASCULAR: Regular rate and rhythm. ABDOMEN: Well-healed transverse right upper abdominal scar. In the left mid to upper abdomen there is a approximately 6 x 6 cm soft mass which is mildly tender. There are no skin changes. There is no severe tenderness. Otherwise the abdomen is soft and nontender. No rebound or guarding. EXTREMITIES: No cyanosis or edema. SKIN: Warm, dry, nonjaundiced. Laboratory Laboratory Tests Test 12/26/16 05:20 White Blood Count 9.8 Red Blood Count 4.10 Hemoglobin 10.4 Hematocrit 31.9 Mean Corpuscular Volume 77.8 Mean Corpuscular Hemoglobin 25.3 Mean Corpuscular Hemoglobin Concent 32.5 Red Cell Distribution Width 18.4 Platelet Count 414 Mean Platelet Volume 8.8 CBC Comment AUTO DIFF Differential Total Cells Counted 100 Neutrophils % (Manual) 60 Lymphocytes % 38 Monocytes % 1 Eosinophils % 1 Neutrophils # (Manual) 5.9 Differential Comment FINAL DIFF MANUAL Atypical Lymphocytes Platelet Estimate NORMAL Platelet Morphology Comment ENLARGED Target Cells 1+ Tear Drop Cells 1+ Ovalocytes 1+ Blood Urea Nitrogen 4 Creatinine 0.56 Random Glucose 89 Total Protein 7.4 Albumin 3.2 Calcium Level 8.2 Alkaline Phosphatase 115 Aspartate Amino Transf (AST/SGOT) 12 Alanine Aminotransferase (ALT/SGPT) 9 Total Bilirubin 0.1 Sodium Level 140 Potassium Level 3.3 Chloride Level 104 Carbon Dioxide Level 29.4 Anion Gap 7 Estimat Glomerular Filtration Rate 146 Magnesium Level 2.0 Lipase 165 Result Diagram: 12/26/16 0520 12/26/16 0520 Imaging Last Impressions Abdomen/Pelvis CT 12/26/16 0000 Signed Impressions: Service Date/Time: Monday, December 26, 2016 05:18 - CONCLUSION: 1. No evidence of acute abdominal or pelvic process. No masses are identified. 2. Shunt catheter as above herniating into the subcutaneous tissues containing fluid. Rickie Ford MD Assessment and Plan Assessment and Plan AIRPORT DRIVER shunt which appears to be leaking into the subcutaneous tissues of the left upper abdomen. I would recommend neurosurgical consultation. I can be available as needed for operative intervention. Burning epigastric pain, nausea, vomiting with history of perforated peptic ulcer and recent regular NSAID use- Protonix twice a day. Carafate. Will ask gastroenterology for evaluation. Nish Aviles MD Dec 26, 2016 12:23
[2016-12-26] MEDS ORDERED: PANTOPRAZOLE SOD 40 MG DELAYED RELEASE TAB PO SCH (12:30)
[2016-12-26] MEDS: PANTOPRAZOLE SODIUM 40 MG VIAL IV PUSH SCH ×2 (13:07→21:46)
[2016-12-26] MEDS: HYDROmorphone HCL PF 0.5 MG/0.5 ML SYRINGE IV PUSH PRN ×3 (13:11→23:58)
--- NOTE | 2016-12-26 14:29 | PD.CONS ---
[facility] Service Neurosurgery Consult Requested By Dr. Ta Reason for Consult ATTORNEY shunt malfunction Primary Care Physician Unknown History of Present Illness I was asked to see this 41-year-old female with history of pseudotumor cerebri and history of multiple CSF diversion procedures. Initially she had a lumboperitoneal shunts placed by Dr. Mauricio for her symptoms. After multiple failures she was then was revised to a right-sided ventriculoperitoneal shunt. She also experienced shunt failure with the right-sided ATTORNEY shunt and in July of this year had a left-sided system placed by a neurosurgeon in [place]. She presented to the emergency room today with a moderate sized subcutaneous fluid collection underlying the left paraumbilical incision. CT scan of the abdomen shows the left peritoneal catheter coiled in and intraperitoneal position however there appears to be a pseudocyst surrounding the catheter and fluid tracking out into the subcutaneous tissue. The patient did present to her neurosurgeon in [place] with this fluid collection and according to the patient he refused to revise the distal catheter and recommended she see a general surgeon. Past Family Social History Allergies: Coded Allergies: morphine (Unverified Allergy, Severe, WELTS, 12/26/16) MRI PRECAUTION (Verified Adverse Reaction, Severe, SPETZLER SHUNT VALVE PER YAMILE. PER INTEGRA NOT COMPAT., 12/26/16) Past Medical History Past Medical History Pseudotumor cerebri Sarcoidosis COPD Past Surgical History ATTORNEY shunt placement and revisions Tubal ligation Bronchoscopy Neck surgery Multiple lumbar surgeries Lung biopsy Cholecystectomy Reported Medications Reported Medications Duloxetine DR (Duloxetine HCl) 60 Mg Capdr 60 Mg PO DAILY Please return to clinic for annual exam and labs. Spiriva Handihaler (Tiotropium Inh) 18 Mcg Cap 18 Mcg INH DAILY Proair Hfa 8.5 GM Inh (Albuterol Sulfate) 90 Mcg/Act Aer 2 Puff INH Q6H PRN 108 mcg/actuation Quetiapine (Quetiapine Fumarate) 25 Mg Tab 25 Mg PO HS Nortriptyline (Nortriptyline HCl) 25 Mg Cap 25 Mg PO HS Ativan (Lorazepam) 0.5 Mg Tab 0.5 Mg PO Q8H PRN Oxycodone (Oxycodone HCl) 10 Mg Tab 10 Mg PO Q6H PRN Fioricet (Tpbovhxkfg-Thumbylanlhvm-Pcmbuobt) 50-300-40 Mg Cap 2 Cap PO Q4H PRN Chantix (Varenicline) 1 Mg Tab 1 Mg PO BIDPC Advair Diskus Inh (Fluticasone-Salmeterol Inh) 500-50 Mcg/Blist Aer 1 Puff INH BID Rinse mouth after use. Dicyclomine (Dicyclomine HCl) 20 Mg Tab 20 Mg PO BID Omeprazole 40 Mg Cap 40 Mg PO BIDAC Methocarbamol 500 Mg Tab 500 Mg PO TID Myrbetriq (Mirabegron) 50 Mg Tab 50 Mg PO DAILY Neurontin (Gabapentin) 300 Mg Cap 300 Mg PO TID Social History Family History Mother with lymphoma Grandmother with CVA and diabetes Grandfather with colorectal cancer, Social History Smokes tobacco 1/2 PPD Denies any alcohol or illicit drug use Physical Exam Vital Signs Vital Signs Date Time Temp Pulse Resp B/P (MAP) Pulse Ox O2 Delivery O2 Flow Rate FiO2 12/26/16 12:12 98.0 66 18 130/89 (103) 100 12/26/16 08:30 98.2 60 16 136/80 (98) 100 12/26/16 06:10 70 16 133/75 (94) 98 Room Air 12/26/16 04:35 16 12/26/16 04:27 98.5 74 16 129/79 (96) 100 Physical Exam Gen.: Well-developed well-nourished -Serbian female. She is awake and alert and in no acute distress HEENT: Head is atraumatic and normocephalic. Patient has bilateral shunt valves. The new left-sided valve pumps and refills well. Neck: Supple full range of motion no posterior tenderness. Abdomen: 6 cm subcutaneous fluid collection underlying a left periumbilical incision. Patient has a large right-sided per umbilical incision as well. Neurological: Alert oriented 3. Mental status normal. Speech intact. Cranial nerves II through XII are intact. Motor function 5/5 throughout. Sensory intact to primary modalities. Reflexes are normoactive and symmetric. Laboratory Last Impressions Abdomen/Pelvis CT 12/26/16 0000 Signed Impressions: Service Date/Time: Wednesday, December 26, 2016 05:18 - CONCLUSION: 1. No evidence of acute abdominal or pelvic process. No masses are identified. 2. Shunt catheter as above herniating into the subcutaneous tissues containing fluid. Rickie Ford MD Laboratory Tests Test 12/26/16 05:20 White Blood Count 9.8 Red Blood Count 4.10 Hemoglobin 10.4 Hematocrit 31.9 Mean Corpuscular Volume 77.8 Mean Corpuscular Hemoglobin 25.3 Mean Corpuscular Hemoglobin Concent 32.5 Red Cell Distribution Width 18.4 Platelet Count 414 Mean Platelet Volume 8.8 CBC Comment AUTO DIFF Differential Total Cells Counted 100 Neutrophils % (Manual) 60 Lymphocytes % 38 Monocytes % 1 Eosinophils % 1 Neutrophils # (Manual) 5.9 Differential Comment FINAL DIFF MANUAL Atypical Lymphocytes Platelet Estimate NORMAL Platelet Morphology Comment ENLARGED Target Cells 1+ Tear Drop Cells 1+ Ovalocytes 1+ Blood Urea Nitrogen 4 Creatinine 0.56 Random Glucose 89 Total Protein 7.4 Albumin 3.2 Calcium Level 8.2 Alkaline Phosphatase 115 Aspartate Amino Transf (AST/SGOT) 12 Alanine Aminotransferase (ALT/SGPT) 9 Total Bilirubin 0.1 Sodium Level 140 Potassium Level 3.3 Chloride Level 104 Carbon Dioxide Level 29.4 Anion Gap 7 Estimat Glomerular Filtration Rate 146 Magnesium Level 2.0 Lipase 165 Result Diagram: 12/26/16 0520 12/26/16 0520 Assessment and Plan Assessment and Plan Distal ATTORNEY shunt malfunction. Rule out infection. Plan: The subcutaneous fluid will be aspirated and sent for culture. If this system is not infected then the distal catheter will need to be revised. Dr. Mauricio will see the patient on Wednesday and he may or may not wish general surgical assistance with repositioning of the catheter. The shunt is infected then it will have to be removed and replaced following eradication of infection. Shamar Alvarado MD Dec 26, 2016 14:29
[2016-12-26] MEDS: SUCRALFATE 1 GM/10 ML CUP PO SCH ×2 (17:17→21:47)
[2016-12-26 19:13] LABS: BLOOD, URINE NEG (NEG); COMMENT (UR) CULT NOT INDICATED; CULTURE IF INDICATED CULT NOT INDICATED; GLUCOSE,URINE NEG (NEG); KETONE, URINE NEG (NEG); MUCUS URINE FEW /lpf (OCC); NITRITE,URINE NEG (NEG); PH, URINE 6.5 (5.0-8.5); SQUAMOUS EPITHELIAL CELL URINE 1 /hpf (0-5); URINE COLOR YELLOW (YELLW/STRAW)
[2016-12-26] MEDS: BUDESONIDE-FORMOTEROL 160/4.5 MCG INHALER INH SCH (21:46)
[2016-12-26] MEDS: NORTRIPTYLINE HCL 25 MG CAP PO SCH (21:47)
[2016-12-26] MEDS: QUEtiapine FUMARATE 25 MG TAB PO SCH (21:47)
[2016-12-27 05:56] VITALS: BP 137/79; PULSE 66; RESP 18; TEMP 98.4; O2SAT 98
[2016-12-27 07:38] VITALS: BP 145/84; PULSE 65; RESP 16; TEMP 98.2; O2SAT 100
[2016-12-27] MEDS: SUCRALFATE 1 GM/10 ML CUP PO SCH ×4 (08:10→21:19)
[2016-12-27] MEDS: HYDROmorphone HCL PF 0.5 MG/0.5 ML SYRINGE IV PUSH PRN ×4 (08:19→21:24)
--- NOTE | 2016-12-27 08:22 | PD.CONS ---
HPI History of Present Illness This is a 41 year old with a history pseudotumor cerebri, s/p STRENGTH AND CONDITIONING COACH shunt placement and PUD with perforation (2015). She reports that she had her first STRENGTH AND CONDITIONING COACH shunt placement in 2014 and has since had intermittent issues with abdominal pain. This is a burning/tightening discomfort in the left upper quadrant. She reports that in 2015, she had a surgical procedure for a perforated ulcer and had her gallbladder removed. She was taking omeprazole at home, but more recently has been taking baking soda instead and has continued to have intermittent issues with the same pain. She reports that she then had a new shunt placed in July of 2016 and about a month later, she started having the abdominal pain again. She reports that it was more severe and that she started to have a protrusion at the site of her shunt. She was initially taking narcotics for this pain, but states that in December, she did not want to take narcotics anymore and therefore switched to BC powder. She has been taking 2 packs of BC powder every 2 hours. The pain has become more severe and seems to be related to food intake. She has frequent nausea/vomiting, but has not had any hematemesis. She has daily heartburn and states she walks around with a box of baking soda for her symptoms. She has had intermittent fevers, chills and has been having increasing fatigue over the past few weeks. For the past week and a half, she has only been able to take Gatorade. She reports that yesterday, she was evaluated by the neurosurgeon and he aspirated some of the subcutaneous fluid for culture and she states that her pain has improved some since that time and for the first time, felt as though she could eat. She is not having any melena or hematochezia. She has not had an endoscopy since her surgery for perforated ulcer. (Kasandra Armenta) PFS Past Medical History Pseudotumor cerebri Sarcoidosis COPD Peptic ulcer disease with perforation 2015 Past Surgical History STRENGTH AND CONDITIONING COACH shunt placement and revisions Tubal ligation Bronchoscopy Neck surgery Multiple lumbar surgeries Lung biopsy Cholecystectomy Laparotomy for perforated ulcer (Kasandra Armenta) Coded Allergies: morphine (Unverified Allergy, Severe, WELTS, 12/26/16) MRI PRECAUTION (Verified Adverse Reaction, Severe, SPETZLER SHUNT VALVE PER YAMILE. PER INTEGRA NOT COMPAT., 12/26/16) Medications Allergies Coded Allergies Type Severity Reaction Last Updated Verified morphine Allergy Severe WELTS 12/26/16 No MRI PRECAUTION Adverse Reaction Severe SPETZLER SHUNT VALVE PER YAMILE. PER INTEGRA NOT COMPAT. 12/26/16 Yes Active Scripts Medications Dose Route/Sig Max Daily Dose Days Date Category Dose Instructions Ativan (Lorazepam) 0.5 Mg Tab 0.5 Mg PO Q8H PRN 12/26/16 Reported Oxycodone (Oxycodone HCl) 10 Mg Tab 10 Mg PO Q6H PRN 12/26/16 Reported Fioricet (Rxmknkfdlu-Nemrstplpwbjv-Zmasmmzm) 50-300-40 Mg Cap 2 Cap PO Q4H PRN 12/26/[address] (Duloxetine HCl) 60 Mg Capdr 60 Mg PO DAILY 12/08/16 Rx Please return to clinic for annual exam and labs. Chantix (Varenicline) 1 Mg Tab 1 Mg PO BIDPC 05/28/16 Reported Advair Diskus Inh (Fluticasone-Salmeterol Inh) 500-50 Mcg/Blist Aer 1 Puff INH BID 05/14/16 Reported Rinse mouth after use. Dicyclomine (Dicyclomine HCl) 20 Mg Tab 20 Mg PO BID 05/14/16 Reported Omeprazole 40 Mg Cap 40 Mg PO BIDAC 05/14/16 Reported Methocarbamol 500 Mg Tab 500 Mg PO TID 05/14/16 Reported Myrbetriq (Mirabegron) 50 Mg Tab 50 Mg PO DAILY 05/14/16 Reported Neurontin (Gabapentin) 300 Mg Cap 300 Mg PO TID 05/14/16 Reported Spiriva Handihaler (Tiotropium Inh) 18 Mcg Cap 18 Mcg INH DAILY 04/13/16 Rx Proair Hfa 8.5 GM Inh (Albuterol Sulfate) 90 Mcg/Act Aer 2 Puff INH Q6H PRN 03/23/16 Rx 108 mcg/actuation Quetiapine (Quetiapine Fumarate) 25 Mg Tab 25 Mg PO HS 03/23/16 Rx Nortriptyline (Nortriptyline HCl) 25 Mg Cap 25 Mg PO HS 01/30/16 Rx Family History Mother with lymphoma Grandmother with CVA and diabetes Grandfather with colorectal cancer, Social History Smokes tobacco 1/2 PPD Denies any alcohol or illicit drug use (Kasandra Armenta Karin GOMEZ) Review of Systems Constitutional: COMPLAINS OF: Fatigue, Fever, Chills Respiratory: DENIES: Cough Cardiovascular: DENIES: Chest pain Gastrointestinal: COMPLAINS OF: Abdominal pain, Nausea, Vomiting, Heartburn, DENIES: Black stools, Bloody stools, Diarrhea, Hematemesis Musculoskeletal: DENIES: Back pain Hematologic/lymphatic: DENIES: Bruising Neurologic: COMPLAINS OF: Headache Psychiatric: DENIES: Confusion (GeovanyEdwardy Karin GOMEZ) GI Exam Vitals I&O Vital Signs Date Time Temp Pulse Resp B/P (MAP) Pulse Ox O2 Delivery O2 Flow Rate FiO2 12/27/16 07:38 98.2 65 16 145/84 (104) 100 12/27/16 06:30 21 12/27/16 05:56 98.4 66 18 137/79 (98) 98 12/27/16 00:30 21 12/26/16 23:29 98.1 69 18 122/67 (85) 98 12/26/16 19:31 98.8 72 18 119/82 (94) 100 12/26/16 16:00 98.5 75 16 108/67 (81) 100 12/26/16 12:12 98.0 66 18 130/89 (103) 100 12/26/16 08:30 98.2 60 16 136/80 (98) 100 I/O 12/26/16 12/26/16 12/26/16 12/27/16 12/27/16 12/27/16 07:00 15:00 23:00 07:00 15:00 23:00 Intake Total 200 ml 120 ml Balance 200 ml 120 ml Intake Oral 120 ml IV Total 200 ml # Voids 1 2 # Bowel Movements 0 Imaging Last Impressions Abdomen/Pelvis CT 12/26/16 0000 Signed Impressions: Service Date/Time: Monday, December 26, 2016 05:18 - CONCLUSION: 1. No evidence of acute abdominal or pelvic process. No masses are identified. 2. Shunt catheter as above herniating into the subcutaneous tissues containing fluid. Rickie Ford MD Laboratory Test 12/26/16 14:20 12/26/16 18:58 12/27/16 07:32 Urine Color YELLOW Urine Turbidity CLEAR Urine pH 6.5 Urine Specific [place] 1.028 Urine Protein mg/dL 30 mg/dL Urine Glucose (UA) mg/dL NEG mg/dL Urine Ketones mg/dL NEG mg/dL Urine Occult Blood NEG Urine Nitrite NEG Urine Bilirubin NEG Urine Urobilinogen MG/DL LESS THAN 2.0 MG/DL Urine Leukocyte Esterase SMALL Urine RBC /hpf 1 /hpf Microscopic Urinalysis Comment CULT NOT INDICATED Urine WBC 7 /hpf Urine Squamous Epithelial Cells 1 /hpf Urine Mucus FEW /lpf Date/Time Source Procedure Growth Status 12/26/16 14:20 Fluid Peritoneal Fluid Gram Stain Pending Received 12/26/16 14:20 Fluid Peritoneal Fluid Body Fluid Culture Pending Received Physical Examination HEENT: Normocephalic; atraumatic; no jaundice. CHEST: CTA CARDIAC: RRR ABDOMEN: Soft, nondistended, mild tenderness left side abdomen, protrusion left side where shunt is; no hepatosplenomegaly; bowel sounds are present in all four quadrants. EXTREMITIES: No clubbing, cyanosis, or edema. SKIN: Normal; no rash; no jaundice. GUYLINE OPERATOR: No focal deficits; alert and oriented times three. (Kasandra Armenta) Assessment and Plan Plan ASSESSMENT: - Abdominal pain, nausea, vomiting, with severe heartburn. Hx of PUD with perforation in 2015. She recently started taking BC Powder (2 packs every 2 hours) in December to try to stop taking narcotics. For the past 1.5 weeks, she has had frequent n/v, decreased appetite, and has only been able to take Gatorade. Daily heartburn (severe) taking baking soda for this, off of omeprazole at home. HH stable. PPI, Carafate. - STRENGTH AND CONDITIONING COACH Shunt malfunction, abdominal pain with subcutaneous fluid collection at site of shunt. CT Scan abdomen and pelvis (12/26/16)---> No evidence of acute abdominal or pelvic process. No masses are identified. Shunt catheter as above herniating into the subcutaneous tissues containing fluid. Nsx following, s/p aspiration of the subcutaneous fluid for culture- pending. - COPD, Anxiety, Depression, Chronic pain, hypokalemia per attending. PLAN: - Plan for EGD today - Obtain consents - NPO after MN - Cont. Protonix 40mg IV BID - Cont. Carafate - Monitor labs - Await cx - NSx following - GS following - Supportive care - Further recommendations to follow based on results of above - PT seen and examined by Dr. Carpio and myself and this note is written on his behalf (Kasandra Armenta) Physician Comments Seen and examined with chiquita Slaughter as above. Further recommendations to follow pending EGD results. Thank you for the consult (Parveen Carpio MD) Kasandra Armenta Dec 27, 2016 08:22 Parveen Carpio MD Dec 27, 2016 13:15
[2016-12-27 08:26] LABS: ANION GAP 7 MEQ/L (5-15); AST (GOT) 10 U/L (15-37); BICARBONATE 25.8 MEQ/L (21.0-32.0); BLOOD UREA NITROGEN 3 MG/DL (7-18); CHLORIDE 107 MEQ/L (98-107); GLOMERULAR FILTRATION RATE 170 ML/MIN (>89); POTASSIUM 3.9 MEQ/L (3.5-5.1); SODIUM (NA) 140 MEQ/L (136-145)
[2016-12-27 08:27] LABS: ALT (GPT) 6 U/L (10-53)
[2016-12-27 08:29] LABS: AUTOMATED NEUTROPHIL # 8.9 TH/MM3 (1.8-7.7); BASOPHIL # 0.1 TH/MM3 (0-0.2); BASOPHIL % 0.5 % (0.0-2.0); EOSINOPHIL # 0.3 TH/MM3 (0-0.4); EOSINOPHIL % 2.6 % (0.0-4.0); HEMO FLAGS DIFF FINAL; LYMPH % 16.9 % (9.0-44.0); MEAN CORPUSCULAR HEMOGLOBIN 24.4 PG (27.0-34.0); MEAN CORPUSCULAR HGB CONC 30.2 % (32.0-36.0); PLATELET COUNT 354 TH/MM3 (150-450); RED BLOOD COUNT 4.08 MIL/MM3 (4.00-5.30); RED CELL DISTRIBUTION WIDTH 18.9 % (11.6-17.2); WHITE BLOOD COUNT 11.9 TH/MM3 (4.0-11.0)
[2016-12-27 08:30] LABS: ALKALINE PHOSPHATASE 116 U/L (45-117); TOTAL BILIRUBIN ADULT 0.1 MG/DL (0.2-1.0)
[2016-12-27] MEDS: NS + KCL 20 MEQ INJ 1,000 ML IV SCH ×2 (08:35→18:05)
--- NOTE | 2016-12-27 09:01 | HHI.PR ---
Subjective Subjective Notes pt without new complaints Objective Vitals/I&O Vital Signs Date Time Temp Pulse Resp B/P (MAP) Pulse Ox O2 Delivery O2 Flow Rate FiO2 12/27/16 07:38 98.2 65 16 145/84 (104) 100 12/26/16 06:10 Room Air Labs Laboratory Tests Test 12/26/16 14:20 12/26/16 18:58 12/27/16 07:32 Urine Color YELLOW Urine Turbidity CLEAR Urine pH 6.5 Urine Specific [place] 1.028 Urine Protein 30 Urine Glucose (UA) NEG Urine Ketones NEG Urine Occult Blood NEG Urine Nitrite NEG Urine Bilirubin NEG Urine Urobilinogen LESS THAN 2.0 Urine Leukocyte Esterase SMALL Urine RBC 1 Microscopic Urinalysis Comment CULT NOT INDICATED Urine WBC 7 Urine Squamous Epithelial Cells 1 Urine Mucus FEW White Blood Count 11.9 Red Blood Count 4.08 Hemoglobin 10.0 Hematocrit 33.0 Mean Corpuscular Volume 81.0 Mean Corpuscular Hemoglobin 24.4 Mean Corpuscular Hemoglobin Concent 30.2 Red Cell Distribution Width 18.9 Platelet Count 354 Mean Platelet Volume 8.9 Neutrophils (%) (Auto) 75.0 Lymphocytes (%) (Auto) 16.9 Monocytes (%) (Auto) 5.0 Eosinophils (%) (Auto) 2.6 Basophils (%) (Auto) 0.5 Neutrophils # (Auto) 8.9 Lymphocytes # (Auto) 2.0 Monocytes # (Auto) 0.6 Eosinophils # (Auto) 0.3 Basophils # (Auto) 0.1 CBC Comment DIFF FINAL Differential Comment Blood Urea Nitrogen 3 Creatinine 0.49 Random Glucose 77 Total Protein 6.9 Albumin 3.0 Calcium Level 8.3 Alkaline Phosphatase 116 Aspartate Amino Transf (AST/SGOT) 10 Alanine Aminotransferase (ALT/SGPT) 6 Total Bilirubin 0.1 Sodium Level 140 Potassium Level 3.9 Chloride Level 107 Carbon Dioxide Level 25.8 Anion Gap 7 Estimat Glomerular Filtration Rate 170 Date/Time Source Procedure Growth Status 12/26/16 14:20 Fluid Peritoneal Fluid Gram Stain Pending Received 12/26/16 14:20 Fluid Peritoneal Fluid Body Fluid Culture Pending Received Radiology Last Impressions Abdomen/Pelvis CT 12/26/16 0000 Signed Impressions: Service Date/Time: Monday, December 26, 2016 05:18 - CONCLUSION: 1. No evidence of acute abdominal or pelvic process. No masses are identified. 2. Shunt catheter as above herniating into the subcutaneous tissues containing fluid. Rickie Ford MD Abdomen: Other Narrative Exam fullness around LUQ incision no erythema no drainage A/P Assessment and Plan displace STROKE PROGRAM COORDINATOR shunt awaiting results of cx would be available for assistance with lower repositioning of shunt if necessary Malcolm Burks MD Dec 27, 2016 09:01
[2016-12-27] MEDS: GABAPENTIN 300 MG CAP PO SCH ×3 (09:17→17:22)
[2016-12-27] MEDS: BUDESONIDE-FORMOTEROL 160/4.5 MCG INHALER INH SCH ×2 (09:17→21:00)
[2016-12-27] MEDS: TIOTROPIUM BROMIDE 18 MCG INH INH SCH (09:17)
[2016-12-27] MEDS: DOCUSATE SODIUM 50 MG/SENNA 8.6 MG TAB PO SCH ×2 (09:18→21:19)
[2016-12-27] MEDS: TOLTERODINE TARTRATE 4 MG CAP LA PO SCH (09:18)
[2016-12-27] MEDS: ACETAMIN 325 MG/BUTALBITAL 50 MG/CAFFEINE 40 MG TAB PO PRN ×3 (09:19→23:24)
[2016-12-27] MEDS: PANTOPRAZOLE SODIUM 40 MG VIAL IV PUSH SCH ×2 (09:19→21:19)
[2016-12-27] MEDS: DULoxetine HCl DR 60 MG CAP PO SCH (09:19)
[2016-12-27] MEDS: DICYCLOMINE HCL 20 MG TAB PO SCH ×2 (09:19→21:19)
[2016-12-27] MEDS: METHOCARBAMOL 500 MG TAB PO SCH ×3 (09:19→17:22)
[2016-12-27] MEDS: SODIUM CHLORIDE 0.9% FLUSH 10 ML FLUSH IV FLUSH SCH ×2 (09:20→21:20)
[2016-12-27] MEDS: ONDANSETRON HCL 4 MG/2 ML VIAL IVP PRN (09:20)
[2016-12-27 11:08] VITALS: BP 125/73; PULSE 74; RESP 16; TEMP 97.6; O2SAT 100
--- NOTE | 2016-12-27 11:34 | HHI.NSPN ---
History Interval History Patient is resting comfortably in bed. Continues to complain of abdominal pain and nausea. Subcutaneous fluid has recurred slightly. Exam Results Vital Signs Date Time Temp Pulse Resp B/P (MAP) Pulse Ox O2 Delivery O2 Flow Rate FiO2 12/27/16 11:08 97.6 74 16 125/73 (90) 100 12/26/16 06:10 Room Air Intake and Output 12/27/16 12/27/16 12/28/16 08:00 16:00 00:00 Intake Total 120 ml 300 ml Balance 120 ml 300 ml Physical Examination Neurological examination remains intact. Abdominal subcutaneous fluid has recurred but not to the point that it had accumulated yesterday. Lab, Micro, Other Results Laboratory Tests Test 12/26/16 14:20 12/26/16 18:58 12/27/16 07:32 Urine Color YELLOW Urine Turbidity CLEAR Urine pH 6.5 Urine Specific [place] 1.028 Urine Protein 30 Urine Glucose (UA) NEG Urine Ketones NEG Urine Occult Blood NEG Urine Nitrite NEG Urine Bilirubin NEG Urine Urobilinogen LESS THAN 2.0 Urine Leukocyte Esterase SMALL Urine RBC 1 Microscopic Urinalysis Comment CULT NOT INDICATED Urine WBC 7 Urine Squamous Epithelial Cells 1 Urine Mucus FEW White Blood Count 11.9 Red Blood Count 4.08 Hemoglobin 10.0 Hematocrit 33.0 Mean Corpuscular Volume 81.0 Mean Corpuscular Hemoglobin 24.4 Mean Corpuscular Hemoglobin Concent 30.2 Red Cell Distribution Width 18.9 Platelet Count 354 Mean Platelet Volume 8.9 Neutrophils (%) (Auto) 75.0 Lymphocytes (%) (Auto) 16.9 Monocytes (%) (Auto) 5.0 Eosinophils (%) (Auto) 2.6 Basophils (%) (Auto) 0.5 Neutrophils # (Auto) 8.9 Lymphocytes # (Auto) 2.0 Monocytes # (Auto) 0.6 Eosinophils # (Auto) 0.3 Basophils # (Auto) 0.1 CBC Comment DIFF FINAL Differential Comment Blood Urea Nitrogen 3 Creatinine 0.49 Random Glucose 77 Total Protein 6.9 Albumin 3.0 Calcium Level 8.3 Alkaline Phosphatase 116 Aspartate Amino Transf (AST/SGOT) 10 Alanine Aminotransferase (ALT/SGPT) 6 Total Bilirubin 0.1 Sodium Level 140 Potassium Level 3.9 Chloride Level 107 Carbon Dioxide Level 25.8 Anion Gap 7 Estimat Glomerular Filtration Rate 170 Date/Time Source Procedure Growth Status 12/26/16 14:20 Fluid Peritoneal Fluid Gram Stain - Final Resulted 12/26/16 14:20 Fluid Peritoneal Fluid Body Fluid Culture Pending Resulted Medical Decision Making Impression and Plan Assessment: Distal ROBOT OPERATOR shunt malfunction. So far aspirated fluid showing no evidence of infection. Plan: Gastroenterology has seen the patient and is planning EGD tomorrow. Dr. Mauricio will see the patient as well and discuss plans for revision of the ROBOT OPERATOR shunt. Shamar Alvarado MD Dec 27, 2016 11:33
--- NOTE | 2016-12-27 13:15 | HHI.PR ---
Subjective Remarks Follow-up CIVIL CLERK malfunction. Continues to have headache and nausea. Discussed with RN Objective Vitals Vital Signs Date Time Temp Pulse Resp B/P (MAP) Pulse Ox O2 Delivery O2 Flow Rate FiO2 12/27/16 11:08 97.6 74 16 125/73 (90) 100 12/27/16 07:38 98.2 65 16 145/84 (104) 100 12/27/16 06:30 21 12/27/16 05:56 98.4 66 18 137/79 (98) 98 12/27/16 00:30 21 12/26/16 23:29 98.1 69 18 122/67 (85) 98 12/26/16 19:31 98.8 72 18 119/82 (94) 100 12/26/16 16:00 98.5 75 16 108/67 (81) 100 I/O 12/26/16 12/26/16 12/26/16 12/27/16 12/27/16 12/27/16 07:00 15:00 23:00 07:00 15:00 23:00 Intake Total 200 ml 120 ml 300 ml Balance 200 ml 120 ml 300 ml Intake Oral 120 ml IV Total 200 ml 300 ml # Voids 1 2 # Bowel Movements 0 Result Diagram: 12/27/16 0732 12/27/16 0732 Imaging Last Impressions Abdomen/Pelvis CT 12/26/16 0000 Signed Impressions: Service Date/Time: Monday, December 26, 2016 05:18 - CONCLUSION: 1. No evidence of acute abdominal or pelvic process. No masses are identified. 2. Shunt catheter as above herniating into the subcutaneous tissues containing fluid. Rickie Ford MD Objective Remarks GENERAL: Well-nourished, well-developed middle aged female patient in [facility]. SKIN: Warm and dry. No rash. NECK: Supple. Trachea midline. CARDIOVASCULAR: Regular rate and rhythm. S1, S2 noted. No murmur appreciated. RESPIRATORY: No accessory muscle use. Clear to auscultation. Breath sounds equal bilaterally. GASTROINTESTINAL: Abdomen soft, nondistended, mild diffuse TTP with shunt protrusion into abdominal wall. Normoactive bowel sounds x4. MUSCULOSKELETAL: No obvious deformities. Extremities without clubbing, cyanosis , or edema. NEUROLOGICAL: Awake and alert. No obvious cranial nerve deficits. Motor grossly within normal limits. Moves all extremities spontaneously. Normal speech. A/P Problem List: (1) vp hr diversity shunt malfunction (2) Intractable abdominal pain ICD Code: R10.9 - Unspecified abdominal pain Status: Acute Assessment and Plan 41-year-old female with history of pseudotumor cerebri s/p CIVIL CLERK shunt, sarcoidosis , COPD, tobacco use, presents with ongoing abdominal pain, nausea, and vomiting. Distal CIVIL CLERK Shunt Malfunction: patient with headache/nausea/vomiting/abdominal pain, hx of CIVIL CLERK shunt. Abd/pelvis CT images reviewed, shows shunt catheter herniating into the subcutaneous tissues containing fluid. -Consult general surgery, discussed with Dr. Aviles, recommends neurosurgery evaluation -Consulted neurology -Consider further imaging including head CT/shuntogram -Status post aspiration of the distal CIVIL CLERK shunt. Per neurosurgery, if negative for infection may need revision. If infected needs to be removed and replaced after treatment of infection -Supportive treatment with IVF, antiemetics, and pain control with oxycodone prn and IV dilaudid prn breakthrough pain Abdominal Pain/Nausea/Vomiting: suspect secondary to above, however will rule out other etiologies -Started on PPI, Bentyl, and Carafate -Supportive treatment with IVF, antiemetics, and pain control prn -Consult GI for further recommendations will proceed with EGD Headache: suspect secondary to above -consider brain imaging however will defer to neurology -continue pain control prn Hypokalemia: K 3.3, suspect secondary to recent vomiting and poor oral intake. Mag 2.0. -give po KCl replacement -repeat BMP, monitor K, replace as needed COPD: chronic, stable, does not appear to be in exacerbation -continue patient's Advair and Spiriva -Albuterol nebs prn Anxiety/Depression/Chronic Pain: chronic -continue patient's home meds including methocarbamol, gabapentin, duloxetine , nortriptyline, seroquel, and ativan prn -continue to monitor All other medical conditions stable, continue home medications as appropriate. DVT Prophylaxis: teds/SCDs Naveen Ta MD Dec 27, 2016 13:15
--- NOTE | 2016-12-27 14:44 | MB ---
cc: TERRA FENG M.D. DATE OF CONSULTATION: 12/27/2016. REASON FOR CONSULTATION: History of pseudotumor. HISTORY OF PRESENT ILLNESS: Ms. Manuel is a 41-year-old woman who has a history of pseudotumor cerebri for which she underwent a WELFARE ADMINISTRATOR shunt placement. She also has history of chronic migraine headaches. She relates that she has been having abdominal pain and notices a cystic protuberance to the abdomen where the shunt terminates and presented to the emergency room. She has been evaluated by the neurosurgery service and the diagnosis was distal WELFARE ADMINISTRATOR shunt malfunction, rule out infection. Subcutaneous fluid was aspirated and sent for culture. She did have an abdominal CT scan and no masses were seen. The shunt catheter was seen to be herniating into the subcutaneous tissue containing fluid. NEUROLOGIC EXAMINATION: HIGHER CORTICAL FUNCTIONS: Intact. CRANIAL NERVES: Intact. MOTOR: 5/5 strength of all groups. REFLEXES: Reflexes symmetric. IMPRESSION: Pseudotumor now with probable distal shunt malfunction. RECOMMENDATIONS: Would defer to the neurosurgery service for further recommendations. MD SANDI Syed/JASPAL /2:27 PM /2:45 PM
[2016-12-27] MEDS ORDERED: SODIUM CHLORID 0.9% 500 ML IV PRN (15:00)
[2016-12-27] MEDS ORDERED: METOPROLOL TARTRATE 25 MG TAB PO PRN (15:00)
[2016-12-27] MEDS ORDERED: LACTATED RINGER'S 1000 ML IV PRN (15:00)
[2016-12-27] MEDS ORDERED: POVIDONE IODINE 5% (ANTISEPSIS KIT) 4 APPLICATIONS EACH NARE PRN (15:00)
[2016-12-27] MEDS ORDERED: CHLORHEXIDINE GLUCONATE 2 % 1 PACK (2 CLOTHS) TOPICAL PRN (15:00)
[2016-12-27 16:00] VITALS: BP 143/78; PULSE 84; RESP 18; TEMP 99; O2SAT 99
[2016-12-27 17:16] VITALS: BP 139/68; PULSE 49; RESP 18; TEMP 98; O2SAT 96
[2016-12-27] MEDS: NORTRIPTYLINE HCL 25 MG CAP PO SCH (21:19)
[2016-12-27] MEDS: QUEtiapine FUMARATE 25 MG TAB PO SCH (21:19)
[2016-12-27 21:45] VITALS: BP 126/90; PULSE 93; RESP 18; TEMP 98.5; O2SAT 98
[2016-12-28] VITALS (8 sets, daily range): BP systolic 138–168; BP diastolic 75–95; PULSE 72–88; RESP 16–20; TEMP 98–98.9; O2SAT 99–100
[2016-12-28] MEDS: HYDROmorphone HCL PF 0.5 MG/0.5 ML SYRINGE IV PUSH PRN ×4 (05:25→21:08)
[2016-12-28] MEDS: ACETAMIN 325 MG/BUTALBITAL 50 MG/CAFFEINE 40 MG TAB PO PRN (06:32)
[2016-12-28 07:54] LABS: POTASSIUM 4.6 MEQ/L (3.5-5.1)
[2016-12-28 07:56] LABS: HEMATOCRIT 32.3 % (35.0-46.0); HEMO FLAGS AUTO DIFF; MEAN CELL VOLUME 78.4 FL (80.0-100.0); MEAN CORPUSCULAR HEMOGLOBIN 24.6 PG (27.0-34.0); MEAN CORPUSCULAR HGB CONC 31.4 % (32.0-36.0); PLATELET COUNT 344 TH/MM3 (150-450); RED BLOOD COUNT 4.12 MIL/MM3 (4.00-5.30); RED CELL DISTRIBUTION WIDTH 18.4 % (11.6-17.2); WHITE BLOOD COUNT 9.6 TH/MM3 (4.0-11.0)
[2016-12-28] MEDS: NS + KCL 20 MEQ INJ 1,000 ML IV SCH (08:09)
[2016-12-28] MEDS: SUCRALFATE 1 GM/10 ML CUP PO SCH ×4 (08:10→20:00)
[2016-12-28] MEDS: TIOTROPIUM BROMIDE 18 MCG INH INH SCH (08:11)
[2016-12-28] MEDS: PANTOPRAZOLE SODIUM 40 MG VIAL IV PUSH SCH ×2 (08:11→20:01)
[2016-12-28] MEDS: BUDESONIDE-FORMOTEROL 160/4.5 MCG INHALER INH SCH ×2 (08:11→20:07)
[2016-12-28] MEDS: SODIUM CHLORIDE 0.9% FLUSH 10 ML FLUSH IV FLUSH SCH ×2 (08:11→20:07)
[2016-12-28] MEDS: DICYCLOMINE HCL 20 MG TAB PO SCH ×2 (08:12→20:00)
[2016-12-28] MEDS: GABAPENTIN 300 MG CAP PO SCH ×3 (08:12→17:01)
[2016-12-28] MEDS: DOCUSATE SODIUM 50 MG/SENNA 8.6 MG TAB PO SCH ×2 (08:12→20:01)
[2016-12-28] MEDS: DULoxetine HCl DR 60 MG CAP PO SCH (08:12)
[2016-12-28] MEDS: TOLTERODINE TARTRATE 4 MG CAP LA PO SCH (08:13)
[2016-12-28] MEDS: METHOCARBAMOL 500 MG TAB PO SCH ×3 (08:13→17:01)
--- NOTE | 2016-12-28 09:27 | HHI.PR ---
Subjective Remarks In bed, says she has headache. No nausea or vomiting. No chest pain, sob, palpitations. Objective Vitals Vital Signs Date Time Temp Pulse Resp B/P (MAP) Pulse Ox O2 Delivery O2 Flow Rate FiO2 12/28/16 08:33 98.3 76 16 154/86 (108) 100 12/28/16 05:23 98.6 83 18 156/79 (104) 100 12/28/16 01:17 98.9 88 18 147/75 (99) 100 12/27/16 21:45 98.5 93 18 126/90 (102) 98 12/27/16 17:16 98.0 49 18 139/68 (91) 96 12/27/16 16:00 99.0 84 18 143/78 (99) 99 12/27/16 11:08 97.6 74 16 125/73 (90) 100 I/O 12/27/16 12/27/16 12/27/16 12/28/16 12/28/16 12/28/16 07:00 15:00 23:00 07:00 15:00 23:00 Intake Total 120 ml 300 ml Balance 120 ml 300 ml Intake Oral 120 ml IV Total 300 ml # Voids 2 2 # Bowel Movements 0 1 Result Diagram: 12/28/16 0545 12/28/16 0515 Imaging Last Impressions Abdomen/Pelvis CT 12/26/16 0000 Signed Impressions: Service Date/Time: Monday, December 26, 2016 05:18 - CONCLUSION: 1. No evidence of acute abdominal or pelvic process. No masses are identified. 2. Shunt catheter as above herniating into the subcutaneous tissues containing fluid. Rickie Ford MD Objective Remarks GENERAL: Well-nourished, well-developed middle aged female patient in [facility]. SKIN: Warm and dry. No rash. NECK: Supple. Trachea midline. CARDIOVASCULAR: Regular rate and rhythm. S1, S2 noted. No murmur appreciated. RESPIRATORY: No accessory muscle use. Clear to auscultation. Breath sounds equal bilaterally. GASTROINTESTINAL: Abdomen soft, nondistended, mild diffuse TTP with shunt protrusion into abdominal wall. Normoactive bowel sounds x4. MUSCULOSKELETAL: No obvious deformities. Extremities without clubbing, cyanosis , or edema. NEUROLOGICAL: Awake and alert. No obvious cranial nerve deficits. Motor grossly within normal limits. Moves all extremities spontaneously. Normal speech. A/P Problem List: (1) evp strategy shunt malfunction (2) Intractable abdominal pain ICD Code: R10.9 - Unspecified abdominal pain Status: Acute Assessment and Plan 41-year-old female with history of pseudotumor cerebri s/p BEAM CARRIER HAULER PUSHER shunt, sarcoidosis , COPD, tobacco use, presents with ongoing abdominal pain, nausea, and vomiting. Distal BEAM CARRIER HAULER PUSHER Shunt Malfunction: patient with headache/nausea/vomiting/abdominal pain, hx of BEAM CARRIER HAULER PUSHER shunt. Abd/pelvis CT images reviewed, shows shunt catheter herniating into the subcutaneous tissues containing fluid. -Consult general surgery, Dr. Aviles, recommends neurosurgery evaluation -Consulted neurology -Consider further imaging including head CT/shuntogram -Status post aspiration of the distal BEAM CARRIER HAULER PUSHER shunt. Per neurosurgery, if negative for infection may need revision. If infected needs to be removed and replaced after treatment of infection -Supportive treatment with IVF, antiemetics, and pain control with oxycodone prn and IV dilaudid prn breakthrough pain -Discussed with neurosurgery plan for LP Abdominal Pain/Nausea/Vomiting: suspect secondary to above, however will rule out other etiologies -Started on PPI, Bentyl, and Carafate -Supportive treatment with IVF, antiemetics, and pain control prn -Consult GI for further recommendations will proceed with EGD Headache: suspect secondary to above -consider brain imaging however will defer to neurology -continue pain control prn Hypokalemia: K 3.3, suspect secondary to recent vomiting and poor oral intake. Mag 2.0. -give po KCl replacement -repeat BMP, monitor K, replace as needed COPD: chronic, stable, does not appear to be in exacerbation -continue patient's Advair and Spiriva -Albuterol nebs prn Anxiety/Depression/Chronic Pain: chronic -continue patient's home meds including methocarbamol, gabapentin, duloxetine , nortriptyline, seroquel, and ativan prn -continue to monitor All other medical conditions stable, continue home medications as appropriate. DVT Prophylaxis: teds/SCDs Discussed withthe patient,nurse, Julisa DANIELS and Dr Mauricio neurosurgery Nadira Daily MD Dec 28, 2016 09:27
[2016-12-28 09:52] LABS: BANDS 1 % (0-6); BASOPHILS 1 % (0-2); EOSINOPHILS 2 % (0-4); NEUTROPHIL # MANUAL DIFF 6.8 TH/MM3 (1.8-7.7); POLYS (SEG NEUTROPHILS) 70 % (16-70); WBC DIFF SAMPLE 100
[2016-12-28 09:58] LABS: ACANTHOCYTES OCC (NORMAL); OVALOCYTES 1+ (NORMAL); PLATELET ESTIMATE SMEAR NORMAL (NORMAL); PLATELET MORPHOLOGY NORMAL (NORMAL); SCAN/DIFF FINAL DIFF MANUAL; TARGET CELLS 1+ (NORMAL)
[2016-12-28] MEDS ORDERED: PROPOFOL 200 MG/20 ML AMP IV ONE (12:00)
[2016-12-28] MEDS ORDERED: LIDOCAINE HCL 1% PF 5 ML AMPULE OTHER ONE (12:00)
--- NOTE | 2016-12-28 14:42 | PD.PROCEDR ---
GI Procedure REFERRING PHYSICIAN Manoj KNAPP PERFORMED EGD with biopsy INDICATION FOR PROCEDURE Abdominal pain with nausea and vomiting with known history of a perforated ulcer PROCEDURE: The procedure, risks and benefits were discussed with Ms. Manuel and informed consent was obtained. Anesthesia sedated her with Diprivan. She was placed in the left lateral decubitus position. EGD: The Pentax videoscope was introduced through the oropharynx and advanced to the second portion of the duodenum under direct visualization. Retroflexion was performed in the stomach. FINDINGS: The esophagus this appeared to be unremarkable and within normal limits The stomach this too appeared to be unremarkable and within normal limits except for the pyloric channel which was involved with a big ulcer that was in the duodenal bulb I could see protrusions of prior sutures from one side of the duodenal bulb ulcer which was quite big and in the pyloric channel multiple biopsies were taken from the ulcer site and surrounding area from the stomach The duodenum there was a large duodenal bulb ulcer but otherwise the rest of the duodenum was unremarkable ESTIMATED BLOOD LOSS: None SPECIMENS REMOVED: Gastroduodenal biopsies COMPLICATIONS: None IMPRESSION: Pyloric channel and duodenal bulb ulcer PLAN: Await biopsy Avoid NSAIDs and aspirin Continue with Protonix 40 mg twice a day and Carafate 1 g 4 times a day Follow-up with GI post discharge EGD in 2 months Santiago Rodriguez MD Dec 28, 2016 14:42
[2016-12-28] MEDS ORDERED: DO NOT ADM ANY ANTICOAGULANT DRUGS PRN (14:50)
--- NOTE | 2016-12-28 16:21 | HHI.NSPN ---
(Dalia Narayanan) Note Status Status: Progress Note (Dalia Narayanan) Interval History Interval History Ms. Manuel is a 41-year-old woman who has a history of pseudotumor cerebri for which she underwent a MANAGEMENT SME shunt placement. She also has history of chronic migraine headaches. She relates that she has been having abdominal pain and notices a cystic protuberance to the abdomen where the shunt terminates and presented to the emergency room. She has been evaluated by the neurosurgery service and the diagnosis was distal MANAGEMENT SME shunt malfunction, rule out infection. Subcutaneous fluid was aspirated and sent for culture. She did have an abdominal CT scan and no masses were seen. The shunt catheter was seen to be herniating into the subcutaneous tissue containing fluid. 12/28: c/o of headaches, fluid collection from the shunt in the abdomen (Dalia Narayanan) Labs, Micro, & Vital Signs Results Date Time Temp Pulse Resp B/P (MAP) Pulse Ox O2 Delivery O2 Flow Rate FiO2 12/28/16 14:44 97.9 71 18 141/84 (103) 100 12/28/16 12:08 98.0 73 20 138/86 (103) 99 12/28/16 12:04 98.4 77 16 139/95 (110) 100 12/28/16 08:33 98.3 76 16 154/86 (108) 100 12/28/16 05:23 98.6 83 18 156/79 (104) 100 12/28/16 01:17 98.9 88 18 147/75 (99) 100 12/27/16 21:45 98.5 93 18 126/90 (102) 98 12/27/16 17:16 98.0 49 18 139/68 (91) 96 12/29/16 07:00 Intake Total 300 ml Balance 300 ml Constitutional Vital Signs Date Time Temp Pulse Resp B/P (MAP) Pulse Ox O2 Delivery O2 Flow Rate FiO2 12/28/16 14:44 97.9 71 18 141/84 (103) 100 12/28/16 12:08 98.0 73 20 138/86 (103) 99 12/28/16 12:04 98.4 77 16 139/95 (110) 100 12/28/16 08:33 98.3 76 16 154/86 (108) 100 12/28/16 05:23 98.6 83 18 156/79 (104) 100 12/28/16 01:17 98.9 88 18 147/75 (99) 100 12/27/16 21:45 98.5 93 18 126/90 (102) 98 12/27/16 17:16 98.0 49 18 139/68 (91) 96 12/29/16 07:00 Intake Total 300 ml Balance 300 ml (Dalia Narayanan) Physical Exam Alert and oriented. Speech is fluent. Follows commands well. CN: pupils equal round bilaterally. Gross EOMs intact. Facial motor symmetric. Abdominal subcutaneous fluid collection. Motor: moves all four extremities (Dalia Narayanan) She is alert, awake and oriented to time, place and person. Speech is fluent. Higher cognitive functions are normal. Cranial nerve examination demonstrates the pupils to be equal, round, and reactive to light. Extra-ocular movements are intact. Facial motor and sensory function are normal and symmetrical. Gross hearing is intact, bilaterally. The uvula is midline and elevates symmetrically with the soft palate. Sternocleidomastoid and trapezius muscles have normal and symmetrical strength. Other cranial nerves are intact. Neck is soft and supple. Cervical spine has a full range of motion in anterior flexion, extension, lateral bending, and rotation without pain. There is no tenderness to palpation to the spinous processes or paraspinal muscles. Muscle testing reveals normal bulk and tone overall without rigidity, spasticity , fasciculations, or atrophy. Muscle strength is 5/5 in all muscle groups of both upper extremities including deltoid, biceps, triceps, brachioradialis, wrist extension and contract driver. In the lower extremities, strength is 5/5 in both iliopsoas, quadriceps, hamstrings, plantar flexion, dorsiflexion, and extensor hallicus longus. Sensory examination is intact to light touch and sharp/dull discrimination in both the upper and lower extremities, symmetrically. Deep tendon reflexes are 2+ and symmetrical in the biceps, triceps, and brachioradialis, bilaterally, in the upper extremities. In the lower extremities , the patellar and Achilles are 2+, bilaterally. There is a bilateral plantar flexion response. Hoffmanns sign is negative. There is no clonus or other abnormal reflexes noted. Cerebellar examination is intact to [id number] test, rapid rhythmic alternating motion. There is no dysmetria, dysdiadochokinesia, truncal ataxia, or tremor. (Thee Mauricio MD) Medications Current Medications Current Medications Medications (Trade) Dose Ordered Sig/Esteban Route PRN Reason Start Time Stop Time Status Last Admin Dose Admin Sodium Chloride (NS Flush) 2 ml UNSCH PRN IV FLUSH FLUSH AFTER USING IV ACCESS 12/26/16 06:30 Sodium Chloride (NS Flush) 2 ml BID IV FLUSH 12/26/16 09:00 12/27/16 21:20 Ondansetron HCl (Zofran Inj) 4 mg Q6H PRN IVP NAUSEA OR VOMITING 12/26/16 06:30 12/27/16 09:20 Acetaminophen (Tylenol) 650 mg Q6H PRN PO FEVER/PAIN SCALE 1 TO 2 12/26/16 06:30 12/26/16 08:59 Oxycodone HCl (Roxicodone) 5 mg Q4H PRN PO PAIN SCALE 3 TO 5 12/26/16 06:30 Senna/Docusate Sodium (Nadeen-Colace) 1 tab BID PO 12/26/16 09:00 12/28/16 08:12 Magnesium Hydroxide (Milk Of Magnesia Liq) 30 ml Q12H PRN PO Mild constipation 12/26/16 06:30 Sennosides (Senokot) 17.2 mg Q12H PRN PO Moderate constipation 12/26/16 06:30 Bisacodyl (Dulcolax Supp) 10 mg DAILY PRN RECTAL SEVERE CONSITIPATION 12/26/16 06:30 Lactulose (Lactulose Liq) 30 ml DAILY PRN PO SEVERE CONSITIPATION 12/26/16 06:30 Hydromorphone HCl (Dilaudid Pf Inj) 0.5 mg Q4H PRN IV PUSH breakthru pain 12/26/16 06:30 12/28/16 09:49 Trimethobenzamide HCl (Tigan Inj) 200 mg Q6H PRN IM NAUSEA/VOMITING 12/26/16 06:30 Dicyclomine HCl (Bentyl) 20 mg BID PO 12/26/16 09:00 12/28/16 08:12 Gabapentin (Neurontin) 300 mg TID PO 12/26/16 09:00 12/28/16 08:12 Methocarbamol (Robaxin) 500 mg TID PO 12/26/16 09:00 12/28/16 08:13 Tiotropium [place] (Spiriva Inh) 18 mcg DAILY INH 12/26/16 09:00 12/28/16 08:11 Potassium Chloride/Sodium Chloride 1,000 ml @ 84 mls/hr [id number] IV 12/26/16 08:45 12/27/16 18:05 Albuterol Sulfate (Proair Hfa Inh) 2 puff Q6H PRN INH SHORTNESS OF BREATH 12/26/16 08:45 Oxycodone HCl (Roxicodone) 10 mg Q4H PRN PO pain 6-10 12/26/16 09:45 12/28/16 15:17 Duloxetine HCl (Cymbalta Dr) 60 mg DAILY PO 12/27/16 09:00 12/28/16 08:12 Lorazepam (Ativan) 0.5 mg Q8H PRN PO ANXIETY AND/OR AGITATION 12/26/16 11:00 Nortriptyline HCl (Pamelor) 25 mg HS PO 12/26/16 21:00 12/27/16 21:19 Quetiapine Fumarate (SEROquel) 25 mg HS PO 12/26/16 21:00 12/27/16 21:19 Tolterodine Tartrate (Detrol La) 4 mg DAILY PO 12/27/16 09:00 12/28/16 08:13 Pantoprazole Sodium (Protonix Inj) 40 mg Q12HR IV PUSH 12/26/16 12:15 12/28/16 08:11 Sucralfate (Carafate Liq) 1 gm ACHS PO 12/26/16 17:00 12/28/16 08:10 Budesonide/ Formoterol Fumarate (Symbicort 160-4.5 Inh) 2 puff BID INH 12/26/16 21:00 12/28/16 08:11 Lactated Ringer's 1,000 ml @ 30 mls/hr Q24H PRN IV SEE LABEL COMMENTS 12/27/16 15:00 12/30/16 14:59 Sodium Chloride 500 ml @ 30 mls/hr [id number] PRN IV SEE LABEL COMMENTS 12/27/16 15:00 12/30/16 14:59 Metoprolol Tartrate (Lopressor) 25 mg [employer] GRINDER PRN PO SEE LABEL COMMENTS 12/27/16 15:00 12/30/16 14:59 Povidone Iodine (Betadine 5% Antisepsis Kit) 1 applic [employer] GRINDER PRN EACH NARE SEE LABEL COMMENTS 12/27/16 15:00 12/30/16 14:59 Chlorhexidine Gluconate (Chlorhexidine 2% Cloth) 3 pack [employer] GRIND[employer] PRN TOPICAL SEE LABEL COMMENTS 12/27/16 15:00 12/30/16 14:59 Miscellaneous Information ALL NURSING DEPARTME... UNSCH PRN .XX SEE LABEL COMMENTS 12/28/16 14:50 12/29/16 14:49 (Dalia Narayanan) Current Medications Current Medications Sodium Chloride 1,000 ml @ 2,000 mls/hr Q30M ONCE IV Last administered on 05:40; Start 12/26/16 at 05:30; Stop 12/26/16 at 05:59; Status DC Ondansetron HCl (Zofran Inj) 4 mg ONCE ONCE IV Last administered on 05:40; Start 12/26/16 at 05:30; Stop 12/26/16 at 05:31; Status DC Iohexol (Omnipaque 350 Inj) 96 ml STK-MED ONCE IVCONTRAST Last administered on 12/26/16 05:29; Start 12/26/16 at 05:29; Stop 12/26/16 at 05:30; Status DC Hydromorphone HCl (Dilaudid Pf Inj) 1 mg ONCE ONCE IV PUSH Last administered on 12/26/16 05:48; Start 12/26/16 at 05:45; Stop 12/26/16 at 05:46; Status DC Hydromorphone HCl (Dilaudid Pf Inj) 1 mg ONCE ONCE IV PUSH Last administered on 12/26/16 06:43; Start 12/26/16 at 06:30; Stop 12/26/16 at 06:31; Status DC Famotidine (Pepcid Inj) 20 mg Q12H IV PUSH Last administered on 12/26/16 06: 43; Start 12/26/16 at 06:30; Stop 12/26/16 at 12:12; Status DC Sodium Chloride 1,000 ml @ 100 mls/hr Q10H IV Last administered on 12/26/16 06:42; Start 12/26/16 at 06:29; Stop 12/26/16 at 08:45; Status DC Sodium Chloride (NS Flush) 2 ml UNSCH PRN IV FLUSH FLUSH AFTER USING IV ACCESS ; Start 12/26/16 at 06:30 Sodium Chloride (NS Flush) 2 ml BID IV FLUSH Last administered on 12/29/16 07 :47; Start 12/26/16 at 09:00 Ondansetron HCl (Zofran Inj) 4 mg Q6H PRN IVP NAUSEA OR VOMITING Last administered on 12/28/16 20:01; Start 12/26/16 at 06:30 Acetaminophen (Tylenol) 650 mg Q6H PRN PO FEVER/PAIN SCALE 1 TO 2 Last administered on 12/26/16 08:59; Start 12/26/16 at 06:30 Oxycodone HCl (Roxicodone) 5 mg Q4H PRN PO PAIN SCALE 3 TO 5; Start 12/26/16 at 06:30 Senna/Docusate Sodium (Nadeen-Colace) 1 tab BID PO Last administered on 07:46; Start 12/26/16 at 09:00 Magnesium Hydroxide (Milk Of Magnesia Liq) 30 ml Q12H PRN PO Mild constipation ; Start 12/26/16 at 06:30 Sennosides (Senokot) 17.2 mg Q12H PRN PO Moderate constipation; Start at 06:30 Bisacodyl (Dulcolax Supp) 10 mg DAILY PRN RECTAL SEVERE CONSITIPATION; Start 12/26/16 at 06:30 Lactulose (Lactulose Liq) 30 ml DAILY PRN PO SEVERE CONSITIPATION; Start 12/26 at 06:30 Hydromorphone HCl (Dilaudid Pf Inj) 0.5 mg Q4H PRN IV PUSH breakthru pain Last administered on 12/29/16 13:14; Start 12/26/16 at 06:30 Trimethobenzamide HCl (Tigan Inj) 200 mg Q6H PRN IM NAUSEA/VOMITING; Start 01/01 at 06:30 Dicyclomine HCl (Bentyl) 20 mg BID PO Last administered on 12/29/16 07:46; Start 12/26/16 at 09:00 Gabapentin (Neurontin) 300 mg TID PO Last administered on 12/29/16 12:08; Start 12/26/16 at 09:00 Methocarbamol (Robaxin) 500 mg TID PO Last administered on 12/29/16 12:08; Start 12/26/16 at 09:00 Tiotropium [place] (Spiriva Inh) 18 mcg DAILY INH Last administered on 07:48; Start 12/26/16 at 09:00 Potassium Chloride/Sodium Chloride 1,000 ml @ 84 mls/hr [id number] IV Last administered on 12/27/16 18:05; Start 12/26/16 at 08:45; Stop 12/28/16 at 23 :18; Status DC Potassium Chloride (KCl) 30 meq ONCE ONCE PO Last administered on 12/26/16 08:59; Start 12/26/16 at 08:45; Stop 12/26/16 at 08:49; Status DC Albuterol Sulfate (Proair Hfa Inh) 2 puff Q6H PRN INH SHORTNESS OF BREATH; Start 12/26/16 at 08:45 Non-Formulary Medication 1 puff BID INH ; Start 12/26/16 at 09:00; Stop at 14:57; Status DC Oxycodone HCl (Roxicodone) 10 mg Q4H PRN PO pain 6-10 Last administered on 16:06; Start 12/26/16 at 09:45 Duloxetine HCl (Cymbalta Dr) 60 mg DAILY PO Last administered on 12/29/16 07: 46; Start 12/27/16 at 09:00 Lorazepam (Ativan) 0.5 mg Q8H PRN PO ANXIETY AND/OR AGITATION; Start 12/26/16 at 11:00 Nortriptyline HCl (Pamelor) 25 mg HS PO Last administered on 12/28/16 20:01; Start 12/26/16 at 21:00 Quetiapine Fumarate (SEROquel) 25 mg HS PO Last administered on 12/28/16 20: 01; Start 12/26/16 at 21:00 Patient Own Medication PT OWN MED: NOAM... Q4H PRN PO HEADACHE; Start at 12:15; Stop 12/26/16 at 14:51; Status DC Tolterodine Tartrate (Detrol La) 4 mg DAILY PO Last administered on 12/29/16 07:47; Start 12/27/16 at 09:00 Pantoprazole Sodium (Protonix Inj) 40 mg Q12HR IV PUSH Last administered on 07:47; Start 12/26/16 at 12:15 Sucralfate (Carafate Liq) 1 gm ACHS PO Last administered on 12/29/16 12:08; Start 12/26/16 at 17:00 Pantoprazole Sodium (Protonix) 40 mg DAILY PO ; Start 12/26/16 at 12:30; Stop 12/26/16 at 12:30; Status DC Acetaminophen/ Butalbital/ Caffeine (Fioricet 325-50-40) 2 tab Q4H PRN PO HEADACHE Last administered on 12/28/16 06:32; Start 12/26/16 at 15:00; Stop 12/28/16 at 09:28; Status DC Budesonide/ Formoterol Fumarate (Symbicort 160-4.5 Inh) 2 puff BID INH Last administered on 12/29/16 07:47; Start 12/26/16 at 21:00 Lactated Ringer's 1,000 ml @ 30 mls/hr Q24H PRN IV SEE LABEL COMMENTS; Start 12/27/16 at 15:00; Stop 12/30/16 at 14:59 Sodium Chloride 500 ml @ 30 mls/hr [id number] PRN IV SEE LABEL COMMENTS; Start at 15:00; Stop 12/30/16 at 14:59 Metoprolol Tartrate (Lopressor) 25 mg [employer]IND[employer] PRN PO SEE LABEL COMMENTS; Start 12/27/16 at 15:00; Stop 12/30/16 at 14:59 Povidone Iodine (Betadine 5% Antisepsis Kit) 1 applic [employer] PRN EACH NARE SEE LABEL COMMENTS; Start 12/27/16 at 15:00; Stop 12/30/16 at 14:59 Chlorhexidine Gluconate (Chlorhexidine 2% Cloth) 3 pack [employer]IND[employer] PRN TOPICAL SEE LABEL COMMENTS; Start 12/27/16 at 15:00; Stop 12/30/16 at 14:59 Miscellaneous Information ALL NURSING DEPARTME... UNSCH PRN .XX SEE LABEL COMMENTS; Start 12/28/16 at 14:50; Stop 12/29/16 at 14:49; Status DC Cefazolin Sodium/ Dextrose 50 ml @ 150 mls/hr ONCE ONCE IV ; Start 12/30/16 at 06:00; Stop 12/30/16 at 06:19 Chlorhexidine Gluconate (Hibiclens 4% Top Soln) 1 applic HS TOP ; Start at 21:00; Stop 12/31/16 at 21:01 (Thee Mauricio MD) Medical Decision Making MDM Remarks 41 year old female with pseudotumor cerebri with lumboperitoneal shunt placed in 2006 intractable headaches, with distal tubing malfunction (Dalia Narayanan) MDM Remarks Last 48 hours Impressions Lumbar Puncture Fluoroscopy 12/29/16 0000 Signed Impressions: Service Date/Time: Thursday, December 29, 2016 09:40 - CONCLUSION: Uncomplicated fluoroscopically guided lumbar puncture with pressures as above. Ru Medina MD (Thee Mauricio MD) Plan Plan Remarks IR to check opening pressure plan to OR for Lumboperitoneal shunt revision wednesday (Dalia Narayanan) Attending Statement Continue neuro checks. LP today For revision of MANAGEMENT SME shunt in AM. The exam, history, and the medical decision- making described in the above note were completed with the assistance of the mid -level provider. I reviewed and agree with the findings presented. I attest that I had a [id number] encounter with the patient on the same day, and personally performed and documented my assessment and findings in the medical record. Pulmonary.. Continue aggressive pulmonary toilette, nasotracheal suction, and breathing treatments with nebulizers. Renal. monitor closely urine output, BUN and creatinine Endocrine. Monitor serial Acu checks and SSI as needed in detail ID monitor for signs of infection Protonix for stress ulcer prophylaxis Alexis hose and SCD's for DVT prophylaxis The exam, history, and the medical decision-making described in the above note were completed with the assistance of the mid-level provider. I reviewed and agree with the findings presented. I attest that I had a [id number] encounter with the patient on the same day, and personally performed and documented my assessment and findings in the medical record. (Thee Mauricio MD) Dalia Narayanan Dec 28, 2016 16:21 Thee Mauricio MD Dec 29, 2016 16:52
[2016-12-28 16:54] LABS: PROTHROMBIN TIME - PATIENT 11.1 SEC (9.8-11.6)
[2016-12-28] MEDS: NORTRIPTYLINE HCL 25 MG CAP PO SCH (20:01)
[2016-12-28] MEDS: QUEtiapine FUMARATE 25 MG TAB PO SCH (20:01)
[2016-12-28] MEDS: ONDANSETRON HCL 4 MG/2 ML VIAL IVP PRN (20:01)
[2016-12-29] VITALS (7 sets, daily range): BP systolic 127–172; BP diastolic 66–86; PULSE 72–94; RESP 17–20; TEMP 98.2–99; O2SAT 97–100
[2016-12-29] MEDS: HYDROmorphone HCL PF 0.5 MG/0.5 ML SYRINGE IV PUSH PRN ×6 (01:24→21:29)
[2016-12-29] MEDS: DICYCLOMINE HCL 20 MG TAB PO SCH ×2 (07:46→20:10)
[2016-12-29] MEDS: SUCRALFATE 1 GM/10 ML CUP PO SCH ×4 (07:46→20:09)
[2016-12-29] MEDS: DOCUSATE SODIUM 50 MG/SENNA 8.6 MG TAB PO SCH ×2 (07:46→20:10)
[2016-12-29] MEDS: DULoxetine HCl DR 60 MG CAP PO SCH (07:46)
[2016-12-29] MEDS: GABAPENTIN 300 MG CAP PO SCH ×3 (07:47→17:20)
[2016-12-29] MEDS: TOLTERODINE TARTRATE 4 MG CAP LA PO SCH (07:47)
[2016-12-29] MEDS: BUDESONIDE-FORMOTEROL 160/4.5 MCG INHALER INH SCH ×2 (07:47→20:14)
[2016-12-29] MEDS: METHOCARBAMOL 500 MG TAB PO SCH ×3 (07:47→17:20)
[2016-12-29] MEDS: PANTOPRAZOLE SODIUM 40 MG VIAL IV PUSH SCH ×2 (07:47→20:09)
[2016-12-29] MEDS: SODIUM CHLORIDE 0.9% FLUSH 10 ML FLUSH IV FLUSH SCH ×2 (07:47→20:10)
[2016-12-29] MEDS: TIOTROPIUM BROMIDE 18 MCG INH INH SCH (07:48)
[2016-12-29 08:01] LABS: HEMATOCRIT 30.4 % (35.0-46.0); MEAN CELL VOLUME 78.7 FL (80.0-100.0); MEAN CORPUSCULAR HEMOGLOBIN 24.4 PG (27.0-34.0); PLATELET COUNT 363 TH/MM3 (150-450); RED BLOOD COUNT 3.86 MIL/MM3 (4.00-5.30); RED CELL DISTRIBUTION WIDTH 18.3 % (11.6-17.2); REVIEW FLAG FINAL; WHITE BLOOD COUNT 6.9 TH/MM3 (4.0-11.0)
--- NOTE | 2016-12-29 10:35 | PD.RAD ---
Post Procedure Progress Note Pre Procedure Diagnosis: (1) Headache (2) Pseudotumor cerebri Post Procedure Diagnosis: (1) Pseudotumor cerebri (2) Headache Procedure Date: Dec 29, 2016 Supervising Radiologist: Ru Medina Proceduralist/Assist: Angela Haider RT(R), RT Berny(R) Anesthesia: Local Plan of Activity Patient to Unit: Nursing Unit Patient Condition: Good See PACS Report for procedural detail/treatment Spinal Procedure Lumbar Drain L2-L3 Fluid Removal (CCs): 18 Fluid Description: Clear Puncture Time: 09:54 Findings: OP: 37 cmH2O Ru Medina MD Dec 29, 2016 10:35
--- NOTE | 2016-12-29 11:03 | HHI.PR ---
Subjective Remarks In bed appears tired. Plan for LP today. No fever or chills. Some nausea but did not vomit. No diarrhea or constipation. Objective Vitals Vital Signs Date Time Temp Pulse Resp B/P (MAP) Pulse Ox O2 Delivery O2 Flow Rate FiO2 12/29/16 07:57 98.4 72 17 127/66 (86) 98 12/29/16 04:00 98.2 74 20 139/76 (97) 99 12/29/16 00:00 98.3 94 18 146/75 (98) 99 12/28/16 20:00 98.3 12/28/16 20:00 98.6 83 18 144/80 (101) 100 12/28/16 17:02 100 21 12/28/16 16:45 98.5 72 16 168/89 (115) 100 12/28/16 14:44 97.9 71 18 141/84 (103) 100 12/28/16 12:08 98.0 73 20 138/86 (103) 99 12/28/16 12:04 98.4 77 16 139/95 (110) 100 I/O 12/28/16 12/28/16 12/28/16 12/29/16 12/29/16 12/29/16 07:00 15:00 23:00 07:00 15:00 23:00 Intake Total 300 ml 480 ml Balance 300 ml 480 ml Intake Oral 480 ml Other 300 ml # Voids 2 4 6 # Bowel Movements 1 0 Result Diagram: 12/29/16 0530 12/28/16 0515 Imaging Last Impressions Abdomen/Pelvis CT 12/26/16 0000 Signed Impressions: Service Date/Time: Monday, December 26, 2016 05:18 - CONCLUSION: 1. No evidence of acute abdominal or pelvic process. No masses are identified. 2. Shunt catheter as above herniating into the subcutaneous tissues containing fluid. Rickie Ford MD Objective Remarks GENERAL: Well-nourished, well-developed middle aged female patient in [facility]. SKIN: Warm and dry. No rash. NECK: Supple. Trachea midline. CARDIOVASCULAR: Regular rate and rhythm. S1, S2 noted. No murmur appreciated. RESPIRATORY: No accessory muscle use. Clear to auscultation. Breath sounds equal bilaterally. GASTROINTESTINAL: Abdomen soft, nondistended, mild diffuse TTP with shunt protrusion into abdominal wall. Normoactive bowel sounds x4. MUSCULOSKELETAL: No obvious deformities. Extremities without clubbing, cyanosis , or edema. NEUROLOGICAL: Awake and alert. Negative Brudzinski sign, negative Kernig sign. No obvious cranial nerve deficits. Motor grossly within normal limits. Moves all extremities spontaneously. Normal speech. A/P Problem List: (1) vp client services shunt malfunction (2) Intractable abdominal pain ICD Code: R10.9 - Unspecified abdominal pain Status: Acute Assessment and Plan 41-year-old female with history of pseudotumor cerebri s/p COMPRESSOR REPAIRER shunt, sarcoidosis , COPD, tobacco use, presents with ongoing abdominal pain, nausea, and vomiting. Distal COMPRESSOR REPAIRER Shunt Malfunction: patient with headache/nausea/vomiting/abdominal pain, hx of COMPRESSOR REPAIRER shunt. Abd/pelvis CT images reviewed, shows shunt catheter herniating into the subcutaneous tissues containing fluid. -Consult general surgery, Dr. Aviles, recommends neurosurgery evaluation -Consulted neurology -Consider further imaging including head CT/shuntogram -Status post aspiration of the distal COMPRESSOR REPAIRER shunt. Per neurosurgery, if negative for infection may need revision. If infected needs to be removed and replaced after treatment of infection -Supportive treatment with IVF, antiemetics, and pain control with oxycodone prn and IV dilaudid prn breakthrough pain -Discussed with neurosurgery plan for LP. Plan for Shunt revision by Dr Mauricio Abdominal Pain/Nausea/Vomiting 2/2 Pyloric channel and duodenal bulb ulcer S/P EGD with biopsy of ulcers 12/28/[address] Rodriguez. avoid NSAIDS/ASA. -Continue PPI, Bentyl, and Carafate -Supportive treatment with IVF, antiemetics, and pain control prn -Consult GI for further recommendations -EGD in 2 months Headache: suspect secondary to above -consider brain imaging however will defer to neurology -continue pain control prn Hypokalemia: K 3.3, suspect secondary to recent vomiting and poor oral intake. Mag 2.0. -give po KCl replacement -repeat BMP, monitor K, replace as needed COPD: chronic, stable, does not appear to be in exacerbation -continue patient's Advair and Spiriva -Albuterol nebs prn Anxiety/Depression/Chronic Pain: chronic -continue patient's home meds including methocarbamol, gabapentin, duloxetine , nortriptyline, seroquel, and ativan prn -continue to monitor All other medical conditions stable, continue home medications as appropriate. DVT Prophylaxis: teds/SCDs Discussed with the patient,nurse, Julisa DANIELS and Dr Mauricio neurosurgery Nadira Daily MD Dec 29, 2016 11:03
[2016-12-29 12:14] LABS: GROSS BLOOD TUBE #2 0 (0); GROSS BLOOD TUBE #3 TRACE (0); SUPERNATE COLOR TUBE #2 CLEAR (CLEAR); SUPERNATE COLOR TUBE #3 CLEAR (CLEAR); VOLUME TUBE # 2 6.3 ML; VOLUME TUBE # 3 3.8 ML
[2016-12-29 12:15] LABS: CSF LYMPHOCYTES 67 %; CSF MONOCYTES 33 %; CSF NEUTROPHILS 0 %; WBC TUBE #4 2 /MM3 (0-10)
[2016-12-29 12:20] LABS: GROSS BLOOD TUBE #4 TRACE (0); SUPERNATE COLOR TUBE #4 CLEAR (CLEAR)
--- NOTE | 2016-12-29 12:35 | HHI.GIFU ---
Subjective Remarks Resting in bed. States she continues to have abdominal pain, reflux, nausea. Baking soda at bedside, states she is still taking this for reflux. D/W patient EGD findings, PPI/Carafate, instructed not to take Baking Soda. States she had LP today and didn't get to eat all of her breakfast because of procedure. Awaiting lunch tray. (Kasandra Armenta) Objective Vitals I&O Vital Signs Date Time Temp Pulse Resp B/P (MAP) Pulse Ox O2 Delivery O2 Flow Rate FiO2 12/29/16 07:57 98.4 72 17 127/66 (86) 98 12/29/16 04:00 98.2 74 20 139/76 (97) 99 12/29/16 00:00 98.3 94 18 146/75 (98) 99 12/28/16 20:00 98.3 12/28/16 20:00 98.6 83 18 144/80 (101) 100 12/28/16 17:02 100 21 12/28/16 16:45 98.5 72 16 168/89 (115) 100 12/28/16 14:44 97.9 71 18 141/84 (103) 100 I/O 12/28/16 12/28/16 12/28/16 12/29/16 12/29/16 12/29/16 07:00 15:00 23:00 07:00 15:00 23:00 Intake Total 300 ml 480 ml Balance 300 ml 480 ml Intake Oral 480 ml Other 300 ml # Voids 2 4 6 # Bowel Movements 1 0 Laboratory Laboratory Tests Test 12/28/16 15:36 12/29/16 05:30 12/29/16 09:54 Prothrombin Time 11.1 Prothromb Time International Ratio 1.0 White Blood Count 6.9 Red Blood Count 3.86 Hemoglobin 9.4 Hematocrit 30.4 Mean Corpuscular Volume 78.7 Mean Corpuscular Hemoglobin 24.4 Mean Corpuscular Hemoglobin Concent 31.0 Red Cell Distribution Width 18.3 Platelet Count 363 Mean Platelet Volume 9.1 CSF Volume (Tube 2) 6.3 CSF Supernatant Color (tube 2) CLEAR CSF Gross Blood (Tube 2) 0 CSF Volume (Tube 3) 3.8 CSF Supernatant Color (tube 3) CLEAR CSF Gross Blood (Tube 3) TRACE CSF Volume (Tube 4) 9.0 CSF Supernatant Color (tube 4) CLEAR CSF Gross Blood (Tube 4) TRACE CSF WBC (Tube 4) 2 CSF RBC (Tube 4) 17 CSF Neutrophils 0 CSF Lymphocytes 67 CSF Monocytes 33 CSF Glucose 57 CSF Total Protein 96.0 Date/Time Source Procedure Growth Status 12/29/16 09:54 Cerebral Spinal Fluid Lumbar Puncture Gram Stain - Final Resulted 12/29/16 09:54 Cerebral Spinal Fluid Lumbar Puncture CSF Culture Pending Resulted Imaging Last Impressions Abdomen/Pelvis CT 12/26/16 0000 Signed Impressions: Service Date/Time: Wednesday, December 26, 2016 05:18 - CONCLUSION: 1. No evidence of acute abdominal or pelvic process. No masses are identified. 2. Shunt catheter as above herniating into the subcutaneous tissues containing fluid. Rickie Ford MD Physical Exam HEENT: Normocephalic; atraumatic; no jaundice. CHEST: CTA CARDIAC: RRR ABDOMEN: Soft, nondistended, mild tenderness left side abdomen, protrusion left side where shunt is; no hepatosplenomegaly; bowel sounds are present in all four quadrants. EXTREMITIES: No clubbing, cyanosis, or edema. SKIN: Normal; no rash; no jaundice. RAG BALER: No focal deficits; alert and oriented times three. (Kasandra Armenta) Assessment and Plan Plan ASSESSMENT: - Abdominal pain, nausea, vomiting, with severe heartburn. Hx of PUD with perforation in 2015. She recently started taking BC Powder (2 packs every 2 hours) in December to try to stop taking narcotics. For the past 1.5 weeks, she has had frequent n/v, decreased appetite, and has only been able to take Gatorade. Daily heartburn (severe) taking baking soda for this, off of omeprazole at home. S/P EGD (12/28/16)---> Pyloric channel and duodenal bulb ulcer. Pathology pending. PPI/Carafate. Still having symptoms and taking baking soda. Instructed patient not to take the baking soda. Tolerating diet. 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 CT Scan abdomen and pelvis (12/26/16)---> No evidence of acute abdominal or pelvic process. No masses are identified. Shunt catheter as above herniating into the subcutaneous tissues containing fluid. Nsx following, s/p aspiration of the subcutaneous fluid for culture- no growth 72 hours. S/P LP (12/29). NSx following. - COPD, Anxiety, Depression, Chronic pain, hypokalemia per attending. PLAN: - MIRI - Await pathology - Cont. Protonix 40mg IV BID - Cont. Carafate 1 gram po ACHS - Monitor labs - NSx following - GS following - Supportive care - Further recommendations to follow based on results of above - PT seen and examined by Dr. Rodriguez and myself and this note is written on his behalf (Kasandra Armenta) Physician Comments Patient seen and examined Agree with above Continue with current supportive care Monitor labs Patient advised to avoid NSAIDs and aspirin. She did confess that she had been using BC powder for pain control (Santiago Rodriguez MD) Kasandra Armenta Dec 29, 2016 12:35 Santiago Rodriguez MD Dec 29, 2016 22:41
--- NOTE | 2016-12-29 12:39 | RADRPT ---
EXAM DATE/TIME: 12/29/2016 09:40 [facility] COMPARISON: LUMBAR PUNCTURE W/OPENING PRESSURES, May 28, 2016, 9:30. INDICATIONS : Patient with history of pseudotumor cerebri in need of lumbar puncture. 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 FLUID: 18.5 cc of clear CSF was collected and sent to the laboratory for analysis. PROCEDURE : 1. Fluoroscopic guided lumbar puncture. 2. Recording of opening pressure. The risks, benefits and alternatives to the procedure were explained and verbal and written consent w as obtained. The site was prepped in sterile fashion. Full sterile technique was used, including ca p, mask, sterile gloves and gown and a large sterile sheet. Hand hygiene and 2% chlorhexidine and/or betadine/alcohol prep was utilized per protocol for cutaneous antisepsis. The skin and subcutaneous tissues were infiltrated with local anesthetic solution. With fluoroscopic guidance the lumbar thecal sac was punctured at the above level described above and the opening pressure was recorded. Of note, the patient appears to have a lumboperitoneal drain in addition to the FURNACE AND WASH EQUIPMENT OPERATOR shunt. The above described fluid was removed without difficulty. The patient tolerated the procedure well and there were no complications. CONCLUSION: Uncomplicated fluoroscopically guided lumbar puncture with pressures as above. Ru Medina MD on December 29, 2016 at 12:36 Board Certified Radiologist. This report was verified electronically.
--- NOTE | 2016-12-29 15:01 | HHI.NSPN ---
(Dalia Narayanan) Note Status Status: Progress Note (Dalia Narayanan) Interval History Interval History Ms. Manuel is a 41-year-old woman who has a history of pseudotumor cerebri for which she underwent a FREIGHT UNLOADER shunt placement. She also has history of chronic migraine headaches. She relates that she has been having abdominal pain and notices a cystic protuberance to the abdomen where the shunt terminates and presented to the emergency room. She has been evaluated by the neurosurgery service and the diagnosis was distal FREIGHT UNLOADER shunt malfunction, rule out infection. Subcutaneous fluid was aspirated and sent for culture. She did have an abdominal CT scan and no masses were seen. The shunt catheter was seen to be herniating into the subcutaneous tissue containing fluid. 12/28: c/o of headaches, fluid collection from the shunt in the abdomen 12/29: no change, LP opening pressures 35. scheduled for revision of shunt tomorrow. (Dalia Narayanan) Labs, Micro, & Vital Signs Results Date Time Temp Pulse Resp B/P (MAP) Pulse Ox O2 Delivery O2 Flow Rate FiO2 12/29/16 12:00 99.0 79 18 134/82 (99) 97 12/29/16 07:57 98.4 72 17 127/66 (86) 98 12/29/16 04:00 98.2 74 20 139/76 (97) 99 12/29/16 00:00 98.3 94 18 146/75 (98) 99 12/28/16 20:00 98.3 12/28/16 20:00 98.6 83 18 144/80 (101) 100 12/28/16 17:02 100 21 12/28/16 16:45 98.5 72 16 168/89 (115) 100 Constitutional Vital Signs Date Time Temp Pulse Resp B/P (MAP) Pulse Ox O2 Delivery O2 Flow Rate FiO2 12/29/16 12:00 99.0 79 18 134/82 (99) 97 12/29/16 07:57 98.4 72 17 127/66 (86) 98 12/29/16 04:00 98.2 74 20 139/76 (97) 99 12/29/16 00:00 98.3 94 18 146/75 (98) 99 12/28/16 20:00 98.3 12/28/16 20:00 98.6 83 18 144/80 (101) 100 12/28/16 17:02 100 21 12/28/16 16:45 98.5 72 16 168/89 (115) 100 (Dalia Narayanan) Physical Exam Alert and oriented. Speech is fluent. Follows commands well. CN: pupils equal round bilaterally. Gross EOMs intact. Facial motor symmetric. Abdominal subcutaneous fluid collection. Motor: moves all four extremities (Dalia Narayanan) Medications Current Medications Current Medications Medications (Trade) Dose Ordered Sig/Esteban Route PRN Reason Start Time Stop Time Status Last Admin Dose Admin Sodium Chloride (NS Flush) 2 ml UNSCH PRN IV FLUSH FLUSH AFTER USING IV ACCESS 12/26/16 06:30 Sodium Chloride (NS Flush) 2 ml BID IV FLUSH 12/26/16 09:00 12/29/16 07:47 Ondansetron HCl (Zofran Inj) 4 mg Q6H PRN IVP NAUSEA OR VOMITING 12/26/16 06:30 12/28/16 20:01 Acetaminophen (Tylenol) 650 mg Q6H PRN PO FEVER/PAIN SCALE 1 TO 2 12/26/16 06:30 12/26/16 08:59 Oxycodone HCl (Roxicodone) 5 mg Q4H PRN PO PAIN SCALE 3 TO 5 12/26/16 06:30 Senna/Docusate Sodium (Nadeen-Colace) 1 tab BID PO 12/26/16 09:00 12/29/16 07:46 Magnesium Hydroxide (Milk Of Magnesia Liq) 30 ml Q12H PRN PO Mild constipation 12/26/16 06:30 Sennosides (Senokot) 17.2 mg Q12H PRN PO Moderate constipation 12/26/16 06:30 Bisacodyl (Dulcolax Supp) 10 mg DAILY PRN RECTAL SEVERE CONSITIPATION 12/26/16 06:30 Lactulose (Lactulose Liq) 30 ml DAILY PRN PO SEVERE CONSITIPATION 12/26/16 06:30 Hydromorphone HCl (Dilaudid Pf Inj) 0.5 mg Q4H PRN IV PUSH breakthru pain 12/26/16 06:30 12/29/16 13:14 Trimethobenzamide HCl (Tigan Inj) 200 mg Q6H PRN IM NAUSEA/VOMITING 12/26/16 06:30 Dicyclomine HCl (Bentyl) 20 mg BID PO 12/26/16 09:00 12/29/16 07:46 Gabapentin (Neurontin) 300 mg TID PO 12/26/16 09:00 12/29/16 12:08 Methocarbamol (Robaxin) 500 mg TID PO 12/26/16 09:00 12/29/16 12:08 Tiotropium [place] (Spiriva Inh) 18 mcg DAILY INH 12/26/16 09:00 12/29/16 07:48 Albuterol Sulfate (Proair Hfa Inh) 2 puff Q6H PRN INH SHORTNESS OF BREATH 12/26/16 08:45 Oxycodone HCl (Roxicodone) 10 mg Q4H PRN PO pain 6-10 12/26/16 09:45 12/29/16 12:09 Duloxetine HCl (Cymbalta Dr) 60 mg DAILY PO 12/27/16 09:00 12/29/16 07:46 Lorazepam (Ativan) 0.5 mg Q8H PRN PO ANXIETY AND/OR AGITATION 12/26/16 11:00 Nortriptyline HCl (Pamelor) 25 mg HS PO 12/26/16 21:00 12/28/16 20:01 Quetiapine Fumarate (SEROquel) 25 mg HS PO 12/26/16 21:00 12/28/16 20:01 Tolterodine Tartrate (Detrol La) 4 mg DAILY PO 12/27/16 09:00 12/29/16 07:47 Pantoprazole Sodium (Protonix Inj) 40 mg Q12HR IV PUSH 12/26/16 12:15 12/29/16 07:47 Sucralfate (Carafate Liq) 1 gm ACHS PO 12/26/16 17:00 12/29/16 12:08 Budesonide/ Formoterol Fumarate (Symbicort 160-4.5 Inh) 2 puff BID INH 12/26/16 21:00 12/29/16 07:47 Lactated Ringer's 1,000 ml @ 30 mls/hr Q24H PRN IV SEE LABEL COMMENTS 12/27/16 15:00 12/30/16 14:59 Sodium Chloride 500 ml @ 30 mls/hr [id number] PRN IV SEE LABEL COMMENTS 12/27/16 15:00 12/30/16 14:59 Metoprolol Tartrate (Lopressor) 25 mg ARC CUTTER PRN PO SEE LABEL COMMENTS 12/27/16 15:00 12/30/16 14:59 Povidone Iodine (Betadine 5% Antisepsis Kit) 1 applic ARC CUTTER PRN EACH NARE SEE LABEL COMMENTS 12/27/16 15:00 12/30/16 14:59 Chlorhexidine Gluconate (Chlorhexidine 2% Cloth) 3 pack ARC CUTTER PRN TOPICAL SEE LABEL COMMENTS 12/27/16 15:00 12/30/16 14:59 (Dalia Narayanan) Medical Decision Making MDM Remarks 41 year old female with pseudotumor cerebri with lumboperitoneal shunt placed in 2006, with distal tubing malfunction intractable headaches, with distal tubing malfunction (Dalia Narayanan) Plan Plan Remarks opening pressure elevated, pt will need her shunt revised, to OR tomorrow for Lumboperitoneal shunt revision NPO after midnight tonight consents in chart (Dalia Narayanan) Attending Statement The exam, history, and the medical decision-making described in the above note were completed with the assistance of the mid-level provider. I reviewed and agree with the findings presented. I attest that I had a [id number] encounter with the patient on the same day, and personally performed and documented my assessment and findings in the medical record. (Thee Mauricio MD) Dalia Narayanan Dec 29, 2016 15:01 Thee Mauricio MD Jan 02, 2017 14:28
[2016-12-29] MEDS: QUEtiapine FUMARATE 25 MG TAB PO SCH (20:09)
[2016-12-29] MEDS: CHLORHEXIDINE GLUCONATE 4% SOLN 120 ML BTL TOP SCH (20:10)
[2016-12-29] MEDS: NORTRIPTYLINE HCL 25 MG CAP PO SCH (20:10)
[2016-12-29] MEDS: ONDANSETRON HCL 4 MG/2 ML VIAL IVP PRN (21:29)
[2016-12-30] VITALS: BP 147/84; PULSE 92; RESP 18; TEMP 98.2; O2SAT 100
[2016-12-30 04:00] VITALS: BP 133/81; PULSE 78; RESP 18; TEMP 98.2; O2SAT 100
[2016-12-30] MEDS: HYDROmorphone HCL PF 0.5 MG/0.5 ML SYRINGE IV PUSH PRN ×3 (04:42→20:39)
[2016-12-30] MEDS ORDERED: ceFAZolin 2 GM PREMIX 50 ML IV ONE (06:00)
[2016-12-30] MEDS ORDERED: GELFOAM SIZE 100 ONE (07:24)
[2016-12-30] MEDS ORDERED: LIDOCAINE 1%/EPINEPHrine 1:100,000 SOLN 20 ML VIAL ONE (07:24)
[2016-12-30] MEDS ORDERED: GENTAMICIN SULFATE 80 MG/2 ML VIAL ONE (07:24)
[2016-12-30] MEDS ORDERED: THROMBIN (TOPICAL) 5,000 UNIT VIAL ONE (07:24)
[2016-12-30] MEDS ORDERED: ACETAMINOPHEN 1000 MG/100 ML 100 ML IV ONE (07:31)
[2016-12-30] MEDS ORDERED: ARTIFICIAL TEARS OPTH OINT 3.5 APPLIC/3.5 GM TUBO ONE (07:31)
[2016-12-30 08:00] VITALS: BP 132/89; PULSE 73; RESP 18; TEMP 98.6; O2SAT 98
[2016-12-30] MEDS: DICYCLOMINE HCL 20 MG TAB PO SCH ×2 (08:42→20:48)
[2016-12-30] MEDS: SUCRALFATE 1 GM/10 ML CUP PO SCH ×4 (08:42→20:49)
[2016-12-30] MEDS: METHOCARBAMOL 500 MG TAB PO SCH ×3 (08:42→18:00)
[2016-12-30] MEDS: GABAPENTIN 300 MG CAP PO SCH ×3 (08:42→18:00)
[2016-12-30] MEDS: DOCUSATE SODIUM 50 MG/SENNA 8.6 MG TAB PO SCH ×2 (08:42→20:51)
[2016-12-30] MEDS: DULoxetine HCl DR 60 MG CAP PO SCH (08:42)
[2016-12-30] MEDS: PANTOPRAZOLE SODIUM 40 MG VIAL IV PUSH SCH ×2 (08:43→20:51)
[2016-12-30] MEDS: BUDESONIDE-FORMOTEROL 160/4.5 MCG INHALER INH SCH ×2 (08:43→20:52)
[2016-12-30 08:47] LABS: HEMATOCRIT 31.9 % (35.0-46.0); MEAN CORPUSCULAR HEMOGLOBIN 24.4 PG (27.0-34.0); MEAN CORPUSCULAR HGB CONC 30.9 % (32.0-36.0); PLATELET COUNT 350 TH/MM3 (150-450); RED BLOOD COUNT 4.03 MIL/MM3 (4.00-5.30); RED CELL DISTRIBUTION WIDTH 18.5 % (11.6-17.2); WHITE BLOOD COUNT 7.1 TH/MM3 (4.0-11.0)
[2016-12-30] MEDS: TIOTROPIUM BROMIDE 18 MCG INH INH SCH (08:47)
[2016-12-30] MEDS: TOLTERODINE TARTRATE 4 MG CAP LA PO SCH (08:48)
[2016-12-30] MEDS: SODIUM CHLORIDE 0.9% FLUSH 10 ML FLUSH IV FLUSH SCH ×2 (09:00→20:39)
[2016-12-30 09:07] LABS: HEMO FLAGS AUTO DIFF
[2016-12-30 09:11] LABS: BICARBONATE 32.2 MEQ/L (21.0-32.0); POTASSIUM 3.8 MEQ/L (3.5-5.1)
[2016-12-30 10:01] LABS: EOSINOPHILS 3 % (0-4); NEUTROPHIL # MANUAL DIFF 4.3 TH/MM3 (1.8-7.7); PLATELET ESTIMATE SMEAR NORMAL (NORMAL); PLATELET MORPHOLOGY NORMAL (NORMAL); POLYS (SEG NEUTROPHILS) 60 % (16-70); SCAN/DIFF FINAL DIFF MANUAL; WBC DIFF SAMPLE 100
[2016-12-30] MEDS ORDERED: NEOSTIGMINE 3 MG/3 ML SYR IV ONE (12:00)
[2016-12-30] MEDS ORDERED: MIDAZOLAM HCL 2 MG/2 ML VIAL IV ONE (12:00)
[2016-12-30] MEDS ORDERED: ROCURONIUM INJ 50 MG/5 ML SYRINGE IV PUSH ONE (12:00)
[2016-12-30] MEDS ORDERED: ESMOLOL HCL 100 MG/10 ML VIAL IV ONE (12:00)
[2016-12-30] MEDS ORDERED: GLYCOPYRROLATE 1 MG/5 ML SYRINGE IV PUSH ONE (12:00)
[2016-12-30] MEDS ORDERED: PROPOFOL 200 MG/20 ML AMP IV ONE (12:00)
[2016-12-30] MEDS ORDERED: PHENYLEPH/NS 1000 MCG/10 ML SYR IV ONE (12:00)
[2016-12-30] MEDS ORDERED: DEXAMETHASONE SOD PHOS 4 MG/ML VIAL IV ONE (12:00)
[2016-12-30] MEDS ORDERED: ONDANSETRON HCL 4 MG/2 ML VIAL IV PUSH ONE (12:00)
[2016-12-30] MEDS ORDERED: LIDOCAINE HCL 1% PF 5 ML SYRINGE OTHER ONE (12:00)
[2016-12-30] MEDS ORDERED: ePHEDrine/NS 25 MG/5 ML SYR IV ONE (12:00)
[2016-12-30] MEDS ORDERED: DO NOT ADM ANY ANTICOAGULANT DRUGS PRN (14:11)
[2016-12-30] MEDS ORDERED: *HYDROmorphone PF 1 MG VIAL PERIprocedural Use ONLY ONE (14:52)
[2016-12-30] MEDS ORDERED: ceFAZolin 2 GM PREMIX 50 ML IV SCH (15:00)
--- NOTE | 2016-12-30 15:23 | HHI.PR ---
Subjective Remarks Seen after LP today. Complaints of more back pain and headache. Nausea but no vomiting. No fever or chills. Objective Vitals Vital Signs Date Time Temp Pulse Resp B/P (MAP) Pulse Ox O2 Delivery O2 Flow Rate FiO2 12/30/16 15:00 98.5 81 12 133/71 (91) 95 Room Air 12/30/16 14:45 83 12 115/56 (75) 95 12/30/16 14:30 93 12 138/63 (88) 100 12/30/16 14:15 85 16 117/57 (77) 100 12/30/16 14:10 98.7 111 10 129/73 (91) 98 Nasal Cannula 2 12/30/16 11:12 14 12/30/16 11:09 15 12/30/16 08:00 98.6 73 18 132/89 (103) 98 12/30/16 04:00 98.2 78 18 133/81 (98) 100 12/30/16 00:00 98.2 92 18 147/84 (105) 100 12/29/16 20:00 98.4 80 20 172/85 (114) 100 12/29/16 17:59 99 21 12/29/16 16:00 98.5 82 18 151/86 (107) 100 I/O 12/29/16 12/29/16 12/29/16 12/30/16 12/30/16 12/30/16 07:00 15:00 23:00 07:00 15:00 23:00 Intake Total 720 ml 50 ml 600 ml Balance 720 ml 50 ml 600 ml Intake Oral 720 ml IV Total 50 ml Other 600 ml # Voids 11 2 2 # Bowel Movements 0 0 0 Result Diagram: 12/30/16 0756 12/30/16 0756 Imaging Last Impressions Lumbar Puncture Fluoroscopy 12/29/16 0000 Signed Impressions: Service Date/Time: Thursday, December 29, 2016 09:40 - CONCLUSION: Uncomplicated fluoroscopically guided lumbar puncture with pressures as above. Ru Medina MD Abdomen/Pelvis CT 12/26/16 0000 Signed Impressions: Service Date/Time: Monday, December 26, 2016 05:18 - CONCLUSION: 1. No evidence of acute abdominal or pelvic process. No masses are identified. 2. Shunt catheter as above herniating into the subcutaneous tissues containing fluid. Rickie Ford MD Objective Remarks GENERAL: Well-nourished, well-developed middle aged female patient in NAD. SKIN: Warm and dry. No rash. NECK: Supple. Trachea midline. CARDIOVASCULAR: Regular rate and rhythm. S1, S2 noted. No murmur appreciated. RESPIRATORY: No accessory muscle use. Clear to auscultation. Breath sounds equal bilaterally. GASTROINTESTINAL: Abdomen soft, nondistended, mild diffuse TTP with shunt protrusion into abdominal wall. Normoactive bowel sounds x4. MUSCULOSKELETAL: No obvious deformities. Extremities without clubbing, cyanosis , or edema. NEUROLOGICAL: Awake and alert. Negative Brudzinski sign, negative Kernig sign. No obvious cranial nerve deficits. Motor grossly within normal limits. Moves all extremities spontaneously. Normal speech. 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 Distal MONEY EXAMINER Shunt Malfunction: patient with headache/nausea/vomiting/abdominal pain, hx of MONEY EXAMINER shunt. Abd/pelvis CT images reviewed, shows shunt catheter herniating into the subcutaneous tissues containing fluid. -Consult general surgery, Dr. Aviles, recommends neurosurgery evaluation -Consulted neurology -Consider further imaging including head CT/shuntogram -Status post aspiration of the distal MONEY EXAMINER shunt. Per neurosurgery, if negative for infection may need revision. If infected needs to be removed and replaced after treatment of infection -Supportive treatment with IVF, antiemetics, and pain control with oxycodone prn and IV dilaudid prn breakthrough pain -Neurosurgery consulted and ff. S/P LP and Shunt revision by Dr Mauricio Give extra dose dilaudid as she has pain at this time. Abdominal Pain/Nausea/Vomiting 2/2 Pyloric channel and duodenal bulb ulcer S/P EGD with biopsy of ulcers 12/28/[address] Rodriguez[address] avoid NSAIDS/ASA. -Continue PPI, Bentyl, and Carafate -Supportive treatment with IVF, antiemetics, and pain control prn -Consult GI for further recommendations -EGD in 2 months Headache: suspect secondary to above -consider brain imaging however will defer to neurology -continue pain control prn Hypokalemia: K 3.3, suspect secondary to recent vomiting and poor oral intake. Mag 2.0. -give po KCl replacement -repeat BMP, monitor K, replace as needed COPD: chronic, stable, does not appear to be in exacerbation -continue patient's Advair and Spiriva -Albuterol nebs prn Anxiety/Depression/Chronic Pain: chronic -continue patient's home meds including methocarbamol, gabapentin, duloxetine , nortriptyline, seroquel, and ativan prn -continue to monitor All other medical conditions stable, continue home medications as appropriate. DVT Prophylaxis: teds/SCDs Discussed with the patient,nurse, Julisa DANIELS and Dr Mauricio neurosurgery Nadira Daily MD Dec 30, 2016 15:23
[2016-12-30] MEDS ORDERED: HYDROmorphone HCL PF 0.5 MG/0.5 ML SYRINGE IV PUSH ONE (15:30)
--- NOTE | 2016-12-30 15:40 | PD.OP ---
Operative Report Date of Surgery: Dec 30, 2016 Preoperative Diagnosis: Pseudotumor cerebri. lumbar peritoneal shunt malfunction Postoperative Diagnosis: Pseudotumor cerebri. lumbar peritoneal shunt malfunction Procedure: Revision of lumbarperitoneal shunt with replacement of peritoneal catheter Anesthesia: general Surgeon: Thee Mauricio Edge Burnisher Uppers(s): Seda Hutchison Operation and Findings: INTRAOPERATIVE FINDINGS: Clear cerebrospinal fluid INDICATIONS FOR PROCEDURE: Ms Manuel is a 41 year old male with history of pseudotumor cerebri who presented with intractable headaches and symptoms ofshunt malfunction. A lumbar puncture showed a very elevated opening pressure. CT of the abdomen showed occlusion of the shunt at the peritoneal catheter. A revision of the lumbar peritoneal shunt was indicated The [id number] details of the procedure, its indications, alternatives, risks , and potential complications of the surgery were fully discussed with the patient. She fully understood. All her questions were answered. No guarantees were given. She voiced requesting the surgery and signed informed consent. They were offered the alternative of continuing nonsurgical treatment. This was a difficult given the patient's multiple prior surgeries and extensive scar tissue. DETAILS OF THE SURGICAL PROCEDURE: After the induction of general anesthesia, endotracheal intubation was performed. A Alatorre catheter, bilateral MELVIN hose and sequential compression devices were placed and kept throughout the procedure. The patient was positioned supine on a 30-80 table with the head over a gel doughnut. All pressure points were carefully padded with eggcrate mattress. The abdominal region was shaved prepped and draped in the usual sterile fashion An incision was made adjacent to the valve with a #10 blade. Small subcutaneous bleeders were controlled with the bipolar. A pocket of fluid under increased pressure was readily localize and drained. The peritoneal catheter was identified and out. There was a good flow of clear cerebrospinal fluid. Cerebrospinal fluid was flowing well with a small, constant, persistent drip of clear cerebrospinal fluid. Specimen was obtained and sent to the lab for analysis of the glucose protein cell count and cultures. A small incision was made in the patient's upper quadrant of the abdomenThe dissection was carried out through the subcutaneous tissue and Shayy's fascia. The rectus sheath was carefully opened with Metzenbaum scissors and the rectus muscles were split along its fibers. The posterior rectus sheath was elevated and carefully opened. The peritoneum was elevated with mosquitoes and opened in the standard fashion. This was quite difficult given the patient's multiple prior surgeries and extensive scar tissue. There were extensive, very thick adhesions, which had to be sequentially opened to enter the peritoneal cavity. The peritoneal cavity was eventually visualized and exposed. A pursestring suture was placed around the peritoneal opening. The peritoneal catheter was placed in the peritoneal cavity under direct visualization. The pursestring suture was carefully adjustedwith special care not to strangulate the catheter. The rectus sheath was closed using interrupted 2-0 Vicryl suture. The Shayy's fascia was approximated with 3-0 Vicryl, and the subcutaneous with 3-0 Vicryl. The skin was closed with running subcuticular 4-0 Vicryl in the abdomen. At the end of the procedure, the sponge, needle and instrument counts were all correct. The estimated blood was less than 30 cc. No blood transfusion was given. No intraoperative complications occurred. The patient received preoperative prophylactic antibiotics. The patient was then extubated and transferred to the recovery room in stable condition. Thee Mauricio MD Dec 30, 2016 15:40
[2016-12-30 16:00] VITALS: BP 148/84; PULSE 75; RESP 16; TEMP 98.4; O2SAT 97
[2016-12-30 16:25] LABS: CSF LYMPHOCYTES 0 %; CSF NEUTROPHILS 0 %; GROSS BLOOD TUBE #1 0 (0); SUPERNATE COLOR TUBE #1 CLEAR (CLEAR); VOLUME TUBE # 1 3.5 ML; WBC TUBE #1 0 /MM3 (0-10)
[2016-12-30] MEDS: ONDANSETRON HCL 4 MG/2 ML VIAL IVP PRN (18:45)
--- NOTE | 2016-12-30 19:31 | HHI.PR ---
Review/Management Daily Summary 12/30 seen half hour ago no distress, afebrile a&o x 3 mildly bulgy eyes, ???proptosis neck supple revised shunt malfunction earlier today check tsh/t4 if not done yet NS following shunt revision for pseudotumor dr Vences back tomorrow Subjective Subjective Comments vp publisher development shunt malfunction revised today, dr Vences saw her initially for neuro matute seems less severe since shunt revision Active Medications Current Medications Medications (Trade) Dose Ordered Sig/Esteban Route Start Time Stop Time Status Last Admin (NS Flush) 2 ml UNSCH PRN IV FLUSH 12/26/16 06:30 (NS Flush) 2 ml BID IV FLUSH 12/26/16 09:00 12/30/16 09:00 (Zofran Inj) 4 mg Q6H PRN IVP 12/26/16 06:30 12/30/16 18:45 (Tylenol) 650 mg Q6H PRN PO 12/26/16 06:30 12/26/16 08:59 (Roxicodone) 5 mg Q4H PRN PO 12/26/16 06:30 (Nadeen-Colace) 1 tab BID PO 12/26/16 09:00 12/30/16 08:42 (Milk Of Magnesia Liq) 30 ml Q12H PRN PO 12/26/16 06:30 (Senokot) 17.2 mg Q12H PRN PO 12/26/16 06:30 (Dulcolax Supp) 10 mg DAILY PRN RECTAL 12/26/16 06:30 (Lactulose Liq) 30 ml DAILY PRN PO 12/26/16 06:30 (Dilaudid Pf Inj) 0.5 mg Q4H PRN IV PUSH 12/26/16 06:30 12/30/16 08:43 (Tigan Inj) 200 mg Q6H PRN IM 12/26/16 06:30 (Bentyl) 20 mg BID PO 12/26/16 09:00 12/30/16 08:42 (Neurontin) 300 mg TID PO 12/26/16 09:00 12/30/16 08:42 (Robaxin) 500 mg TID PO 12/26/16 09:00 12/30/16 08:42 (Spiriva Inh) 18 mcg DAILY INH 12/26/16 09:00 12/30/16 08:47 (Proair Hfa Inh) 2 puff Q6H PRN INH 12/26/16 08:45 (Roxicodone) 10 mg Q4H PRN PO 12/26/16 09:45 12/30/16 18:41 (Cymbalta Dr) 60 mg DAILY PO 12/27/16 09:00 12/30/16 08:42 (Ativan) 0.5 mg Q8H PRN PO 12/26/16 11:00 (Pamelor) 25 mg HS PO 12/26/16 21:00 12/29/16 20:10 (SEROquel) 25 mg HS PO 12/26/16 21:00 12/29/16 20:09 (Detrol La) 4 mg DAILY PO 12/27/16 09:00 12/30/16 08:48 (Protonix Inj) 40 mg Q12HR IV PUSH 12/26/16 12:15 12/30/16 08:43 (Carafate Liq) 1 gm ACHS PO 12/26/16 17:00 12/30/16 08:42 (Symbicort 160-4.5 Inh) 2 puff BID INH 12/26/16 21:00 12/30/16 08:43 (Hibiclens 4% Top Soln) 1 applic HS TOP 12/29/16 21:00 12/31/16 21:01 12/29/16 20:10 Miscellaneous Information ALL NURSING DEPARTME... UNSCH PRN .XX 12/30/16 14:11 12/31/16 14:10 Cefazolin Sodium/ Dextrose 50 ml @ 100 mls/hr Q8H IV 12/30/16 20:00 12/31/16 12:29 Allergies Allergies Coded Allergies morphine (Unverified Allergy, Severe, WELTS, 12/26/16) MRI PRECAUTION (Verified Adverse Reaction, Severe, SPETZLER SHUNT VALVE PER YAMILE. PER [facility] NOT COMPAT., 12/26/16) Exam I&O / VS 12/30/16 12/30/16 12/31/16 15:00 23:00 07:00 Intake Total 600 ml Balance 600 ml Other 600 ml # Voids 3 Vital Signs Date Time Temp Pulse Resp B/P (MAP) Pulse Ox O2 Delivery O2 Flow Rate FiO2 12/30/16 16:00 98.4 75 16 148/84 (105) 97 12/30/16 15:00 98.5 81 12 133/71 (91) 95 Room Air 12/30/16 14:45 83 12 115/56 (75) 95 12/30/16 14:30 93 12 138/63 (88) 100 12/30/16 14:15 85 16 117/57 (77) 100 12/30/16 14:10 98.7 111 10 129/73 (91) 98 Nasal Cannula 2 12/30/16 11:12 14 12/30/16 11:09 15 12/30/16 08:00 98.6 73 18 132/89 (103) 98 12/30/16 04:00 98.2 78 18 133/81 (98) 100 12/30/16 00:00 98.2 92 18 147/84 (105) 100 12/29/16 20:00 98.4 80 20 172/85 (114) 100 Objective Radiology Results Last 48 hours Impressions Lumbar Puncture Fluoroscopy 12/29/16 0000 Signed Impressions: Service Date/Time: Thursday, December 29, 2016 09:40 - CONCLUSION: Uncomplicated fluoroscopically guided lumbar puncture with pressures as above. Ru Medina MD Micro and Labs Laboratory Tests Test 12/30/16 07:56 12/30/16 13:30 White Blood Count 7.1 Red Blood Count 4.03 Hemoglobin 9.8 Hematocrit 31.9 Mean Corpuscular Volume 79.0 Mean Corpuscular Hemoglobin 24.4 Mean Corpuscular Hemoglobin Concent 30.9 Red Cell Distribution Width 18.5 Platelet Count 350 Mean Platelet Volume 9.0 CBC Comment AUTO DIFF Differential Total Cells Counted 100 Neutrophils % (Manual) 60 Lymphocytes % 31 Monocytes % 6 Eosinophils % 3 Neutrophils # (Manual) 4.3 Differential Comment FINAL DIFF MANUAL Platelet Estimate NORMAL Platelet Morphology Comment NORMAL Red Cell Morphology Comment Blood Urea Nitrogen 6 Creatinine 0.62 Random Glucose 78 Calcium Level 8.6 Sodium Level 138 Potassium Level 3.8 Chloride Level 100 Carbon Dioxide Level 32.2 Anion Gap 6 Estimat Glomerular Filtration Rate 130 CSF Volume (Tube 1) 3.5 CSF Supernatant Color (tube 1) CLEAR CSF Gross Blood (Tube 1) 0 CSF WBC (Tube 1) 0 CSF RBC (Tube 1) 0 CSF Neutrophils 0 CSF Lymphocytes 0 CSF Glucose 59 CSF Total Protein 11.1 Date/Time Source Procedure Growth Status 12/30/16 13:30 Cerebral Spinal Fluid Shunt Fluid Gram Stain - Final Resulted 12/30/16 13:30 Cerebral Spinal Fluid Shunt Fluid CSF Culture Pending Resulted Kayley Chance MD Dec 30, 2016 19:31
[2016-12-30] MEDS: ceFAZolin 2 GM PREMIX 50 ML IV SCH (20:39)
[2016-12-30 20:45] LABS: THYROXINE (T4) 6.3 MCG/DL (4.8-13.9)
[2016-12-30] MEDS: QUEtiapine FUMARATE 25 MG TAB PO SCH (20:50)
[2016-12-30] MEDS: NORTRIPTYLINE HCL 25 MG CAP PO SCH (20:50)
[2016-12-30] MEDS: CHLORHEXIDINE GLUCONATE 4% SOLN 120 ML BTL TOP SCH (20:51)
[2016-12-30 21:26] VITALS: BP 151/99; PULSE 68; RESP 18; TEMP 98.8; O2SAT 99
[2016-12-31] VITALS (7 sets, daily range): BP systolic 140–164; BP diastolic 77–86; PULSE 78–92; RESP 18–20; TEMP 98.5–101.2; O2SAT 96–100
[2016-12-31] MEDS: HYDROmorphone HCL PF 0.5 MG/0.5 ML SYRINGE IV PUSH PRN ×3 (01:01→10:43)
[2016-12-31] MEDS: ceFAZolin 2 GM PREMIX 50 ML IV SCH ×2 (02:57→11:11)
--- NOTE | 2016-12-31 08:07 | HHI.PR ---
Subjective Remarks The patient is in bed, she appears in not acute distress at this time however she is asking for more pain medications since she has back pain after LP shunt revision yesterday. She says she doesn't have any more headaches. No change in vision. No new motor deficit. No sensory deficit. Denies nausea or vomiting no diarrhea or constipation. Objective Vitals Vital Signs Date Time Temp Pulse Resp B/P (MAP) Pulse Ox O2 Delivery O2 Flow Rate FiO2 12/31/16 05:56 98.5 86 18 141/77 (98) 96 12/31/16 00:49 98.8 90 18 145/82 (103) 98 12/30/16 21:26 98.8 68 18 151/99 (116) 99 12/30/16 16:00 98.4 75 16 148/84 (105) 97 12/30/16 15:00 98.5 81 12 133/71 (91) 95 Room Air 12/30/16 14:45 83 12 115/56 (75) 95 12/30/16 14:30 93 12 138/63 (88) 100 12/30/16 14:15 85 16 117/57 (77) 100 12/30/16 14:10 98.7 111 10 129/73 (91) 98 Nasal Cannula 2 12/30/16 11:12 14 12/30/16 11:09 15 I/O 12/30/16 12/30/16 12/30/16 12/31/16 12/31/16 12/31/16 07:00 15:00 23:00 07:00 15:00 23:00 Intake Total 50 ml 600 ml 50 ml 50 ml Balance 50 ml 600 ml 50 ml 50 ml IV Total 50 ml 50 ml 50 ml Other 600 ml # Voids 2 4 2 # Bowel Movements 0 Result Diagram: 12/30/16 0756 12/30/16 0756 Imaging Last Impressions Lumbar Puncture Fluoroscopy 12/29/16 0000 Signed Impressions: Service Date/Time: Thursday, December 29, 2016 09:40 - CONCLUSION: Uncomplicated fluoroscopically guided lumbar puncture with pressures as above. Ru Medina MD Abdomen/Pelvis CT 12/26/16 0000 Signed Impressions: Service Date/Time: Monday, December 26, 2016 05:18 - CONCLUSION: 1. No evidence of acute abdominal or pelvic process. No masses are identified. 2. Shunt catheter as above herniating into the subcutaneous tissues containing fluid. Rickie Ford MD Objective Remarks GENERAL: Well-nourished, well-developed middle aged female patient in NAD. SKIN: Warm and dry. No rash. NECK: Supple. Trachea midline. CARDIOVASCULAR: Regular rate and rhythm. S1, S2 noted. No murmur appreciated. RESPIRATORY: No accessory muscle use. Clear to auscultation. Breath sounds equal bilaterally. GASTROINTESTINAL: Abdomen soft, nondistended, mild diffuse TTP with shunt protrusion into abdominal wall. Normoactive bowel sounds x4. MUSCULOSKELETAL: No obvious deformities. Extremities without clubbing, cyanosis , or edema. NEUROLOGICAL: Awake and alert. Negative Brudzinski sign, negative Kernig sign. No obvious cranial nerve deficits. Motor grossly within normal limits. Moves all extremities spontaneously. Normal speech. A/P Problem List: (1) circulation representative shunt malfunction (2) Intractable abdominal pain ICD Code: R10.9 - Unspecified abdominal pain Status: Acute Assessment and Plan 41-year-old female with history of pseudotumor cerebri s/p SIGNALING DESIGN ENGINEER shunt, sarcoidosis , COPD, tobacco use, presents with ongoing abdominal pain, nausea, and vomiting. Distal SIGNALING DESIGN ENGINEER Shunt Malfunction: patient with headache/nausea/vomiting/abdominal pain, hx of SIGNALING DESIGN ENGINEER shunt. Abd/pelvis CT images reviewed, shows shunt catheter herniating into the subcutaneous tissues containing fluid. -Consult general surgery, Dr. Aviles, recommends neurosurgery evaluation -Consulted neurology -Consider further imaging including head CT/shuntogram -Status post aspiration of the distal SIGNALING DESIGN ENGINEER shunt. Per neurosurgery, if negative for infection may need revision. If infected needs to be removed and replaced after treatment of infection -Supportive treatment with IVF, antiemetics, and pain control with oxycodone prn and IV dilaudid prn breakthrough pain -Neurosurgery consulted and ff. S/P LP by IR and Shunt revision by Dr Mauricio - Received extra dose Dilaudid after LP - DC IV Dilaudid 0.5 mg when necessary. Continue oxycodone per pain scale. The patient is asking for more IV pain medications. Abdominal Pain/Nausea/Vomiting 2/2 Pyloric channel and duodenal bulb ulcer S/P EGD with biopsy of ulcers 12/28/[address] Rodriguez. avoid NSAIDS/ASA. -Continue PPI, Bentyl, and Carafate -Supportive treatment with IVF, antiemetics, and pain control prn -Consult GI for further recommendations -EGD in 2 months Headache: suspect secondary to above -consider brain imaging however will defer to neurology -continue pain control prn Proptosis. TSH is normal. Hypokalemia: K 3.3, suspect secondary to recent vomiting and poor oral intake. Mag 2.0. -give po KCl replacement -repeat BMP, monitor K, replace as needed COPD: chronic, stable, does not appear to be in exacerbation -continue patient's Advair and Spiriva -Albuterol nebs prn Anxiety/Depression/Chronic Pain: chronic -continue patient's home meds including methocarbamol, gabapentin, duloxetine , nortriptyline, seroquel, and ativan prn -continue to monitor All other medical conditions stable, continue home medications as appropriate. DVT Prophylaxis: teds/SCDs Discussed with the patient, nurse Nadira Daily MD Dec 31, 2016 08:07
[2016-12-31] MEDS: SUCRALFATE 1 GM/10 ML CUP PO SCH ×4 (08:15→21:30)
[2016-12-31] MEDS: DOCUSATE SODIUM 50 MG/SENNA 8.6 MG TAB PO SCH ×2 (08:18→21:30)
[2016-12-31] MEDS: GABAPENTIN 300 MG CAP PO SCH ×3 (08:18→17:12)
[2016-12-31] MEDS: TOLTERODINE TARTRATE 4 MG CAP LA PO SCH (08:18)
[2016-12-31] MEDS: DULoxetine HCl DR 60 MG CAP PO SCH (08:18)
[2016-12-31] MEDS: DICYCLOMINE HCL 20 MG TAB PO SCH ×2 (08:18→21:30)
[2016-12-31] MEDS: METHOCARBAMOL 500 MG TAB PO SCH ×3 (08:18→17:12)
[2016-12-31] MEDS: TIOTROPIUM BROMIDE 18 MCG INH INH SCH (08:21)
[2016-12-31] MEDS: BUDESONIDE-FORMOTEROL 160/4.5 MCG INHALER INH SCH ×2 (08:21→21:31)
[2016-12-31] MEDS: SODIUM CHLORIDE 0.9% FLUSH 10 ML FLUSH IV FLUSH SCH ×2 (08:24→21:31)
[2016-12-31] MEDS: PANTOPRAZOLE SODIUM 40 MG VIAL IV PUSH SCH ×2 (08:24→21:31)
[2016-12-31] MEDS ORDERED: SUCR1S PO (10:28)
[2016-12-31] MEDS ORDERED: OXYC-395 PO (10:28)
--- NOTE | 2016-12-31 10:28 | HHI.DS ---
Discharge Summary Admission Date Dec 28, 2016 at 12:01 Discharge Date: Dec 31, 2016 Admitting Diagnosis intractable pain, abdominal wall CSFoma (1) evp managing director shunt malfunction (2) Intractable abdominal pain ICD Code: R10.9 - Unspecified abdominal pain Status: Acute Procedures LP by IR Shunt revision by Dr Mauricio Brief History - From Admission Written by Bree Lamar, acting as scribe for Dr. Ta on 12/26/16 at 09: 29. This note was transcribed by scribe Bree Lamar. I, Dr. Naveen Ta personally performed the history, physical exam, and medical decision making; and confirmed the accuracy of the information in the transcribed note. Authenticated by Dr. Naveen Ta on 12/26/16 at 09:38. 41-year-old female with history of pseudotumor cerebri s/p SENIOR ENGINEERING TEAM LEADER shunt, sarcoidosis , COPD, tobacco use, presents with ongoing abdominal pain, nausea, and vomiting. The patient reports diffuse burning abdominal pain associated with nausea and vomiting. She has not been able to tolerate oral intake for 4 days. She has been taking Lortab at home with no relief of the pain. Denies fevers/ chills. She also reports constant sharp stabbing left sided headache. Denies any visual changes, lightheadedness, or dizziness. She denies any dysuria or suprapubic pain. She also reports constipation with no bowel movement in 1 week. The patient reports she has been seeing Dr. Vences who has referred her to general surgery however she has had no success. She states she's also discussed with her neurosurgeon Dr. Pennington in [place], [place] who reportedly refuses to see the patient. The patient has no other medical complaints at this time including no chest pain, shortness of breath, or urinary complaints. CBC/BMP: 12/30/16 0756 12/30/16 0756 Significant Findings Laboratory Tests Test 12/28/16 15:36 12/29/16 05:30 12/29/16 09:54 12/30/16 07:56 Red Blood Count 3.86 MIL/MM3 (4.00-5.30) Hemoglobin 9.4 GM/DL (11.6-15.3) 9.8 GM/DL (11.6-15.3) Hematocrit 30.4 % (35.0-46.0) 31.9 % (35.0-46.0) Mean Corpuscular Volume 78.7 FL (80.0-100.0) 79.0 FL (80.0-100.0) Mean Corpuscular Hemoglobin 24.4 PG (27.0-34.0) 24.4 PG (27.0-34.0) Mean Corpuscular Hemoglobin Concent 31.0 % (32.0-36.0) 30.9 % (32.0-36.0) Red Cell Distribution Width 18.3 % (11.6-17.2) 18.5 % (11.6-17.2) CSF Gross Blood (Tube 3) TRACE (0) CSF Gross Blood (Tube 4) TRACE (0) CSF RBC (Tube 4) 17 /MM3 (NONE) CSF Total Protein 96.0 MG/DL (15.0-45.0) Blood Urea Nitrogen 6 MG/DL (7-18) Carbon Dioxide Level 32.2 MEQ/L (21.0-32.0) Test 12/30/16 13:30 CSF Total Protein 11.1 MG/DL (15.0-45.0) Imaging Last Impressions Lumbar Puncture Fluoroscopy 12/29/16 0000 Signed Impressions: Service Date/Time: Thursday, December 29, 2016 09:40 - CONCLUSION: Uncomplicated fluoroscopically guided lumbar puncture with pressures as above. Ru Medina MD Abdomen/Pelvis CT 12/26/16 0000 Signed Impressions: Service Date/Time: Monday, December 26, 2016 05:18 - CONCLUSION: 1. No evidence of acute abdominal or pelvic process. No masses are identified. 2. Shunt catheter as above herniating into the subcutaneous tissues containing fluid. Rickie Ford MD PE at Discharge GENERAL: Well-nourished, well-developed middle aged female patient in NAD. SKIN: Warm and dry. No rash. NECK: Supple. Trachea midline. CARDIOVASCULAR: Regular rate and rhythm. S1, S2 noted. No murmur appreciated. RESPIRATORY: No accessory muscle use. Clear to auscultation. Breath sounds equal bilaterally. GASTROINTESTINAL: Abdomen soft, nondistended, mild diffuse TTP with shunt protrusion into abdominal wall. Normoactive bowel sounds x4. MUSCULOSKELETAL: No obvious deformities. Extremities without clubbing, cyanosis , or edema. NEUROLOGICAL: Awake and alert. Negative Brudzinski sign, negative Kernig sign. No obvious cranial nerve deficits. Motor grossly within normal limits. Moves all extremities spontaneously. Normal speech. Hospital Course 41-year-old female with history of pseudotumor cerebri s/p SENIOR ENGINEERING TEAM LEADER shunt, sarcoidosis , COPD, tobacco use, presents with ongoing abdominal pain, nausea, and vomiting. Distal SENIOR ENGINEERING TEAM LEADER Shunt Malfunction: patient with headache/nausea/vomiting/abdominal pain, hx of SENIOR ENGINEERING TEAM LEADER shunt. Abd/pelvis CT images reviewed, shows shunt catheter herniating into the subcutaneous tissues containing fluid. -Consult general surgery, Dr. Aviles, recommends neurosurgery evaluation -Consulted neurology -Consider further imaging including head CT/shuntogram -Status post aspiration of the distal SENIOR ENGINEERING TEAM LEADER shunt. Per neurosurgery, if negative for infection may need revision. If infected needs to be removed and replaced after treatment of infection -Supportive treatment with IVF, antiemetics, and pain control with oxycodone prn and IV dilaudid prn breakthrough pain -Neurosurgery consulted and ff. S/P LP by IR and Shunt revision by Dr Mauricio . Cultures are negative. - Received extra dose Dilaudid after LP - DC IV Dilaudid 0.5 mg when necessary. Continue oxycodone per pain scale. The patient was asking for more IV pain medications however. Abdominal Pain/Nausea/Vomiting 2/2 Pyloric channel and duodenal bulb ulcer S/P EGD with biopsy of ulcers 12/28/[address] Rodriguez[address] avoid NSAIDS/ASA. -Continue PPI, Bentyl, and Carafate -Supportive treatment with IVF, antiemetics, and pain control prn -Consult GI for further recommendations -EGD in 2 months Headache: suspect secondary to above -consider brain imaging however will defer to neurology -continue pain control prn Proptosis. TSH is normal. Hypokalemia: K 3.3. suspect secondary to recent vomiting and poor oral intake. Mag 2.0. Replaced. Tolerates food now. -give po KCl replacement -repeat BMP, monitor K, replace as needed. COPD: chronic, stable, does not appear to be in exacerbation -continue patient's Advair and Spiriva -Albuterol nebs prn Anxiety/Depression/Chronic Pain: chronic -continue patient's home meds including methocarbamol, gabapentin, duloxetine , nortriptyline, seroquel, and ativan prn -continue to monitor All other medical conditions stable, continue home medications as appropriate. DVT Prophylaxis: teds/SCDs Discussed with the patient, nurse Patient improved, was cleared by consultants for DC. To follow up as OP with PCP and consultants. Pt Condition on Discharge: Stable Discharge Disposition: Discharge Home Discharge Time: > 30 minutes Discharge Instructions DIET: Follow Instructions for: As Tolerated, No Restrictions Activities you can perform: Regular-No Restrictions Follow up Referrals: Neurology with Shamar Vences PhD, MD Neurosurgery with Thee Mauricio MD PCP Follow-up - 2-3 Days New Medications: Sucralfate Liq (Sucralfate Liq) 1 Gram/10 Ml [place] 1 GM PO ACHS for gi for 30 Days, BOX Continued Medications: Albuterol 8.5 GM Inh (Proair Hfa 8.5 GM Inh) 90 Mcg/Act Aer 2 PUFF INH Q6H PRN for SHORTNESS OF BREATH, #1 INHALER 5 Refills 108 mcg/actuation Dicyclomine (Dicyclomine) 20 Mg Tab 20 MG PO BID for Bowel Management, #28 TAB [address] (Duloxetine DR) 60 Mg Capdr 60 MG PO DAILY for Chronic Pain, #30 CAP 0 Refills Please return to clinic for annual exam and labs. Fluticasone-Salmeterol Inh (Advair Diskus Inh) 500-50 Mcg/Blist Aer 1 PUFF INH BID, #1 INHALER 0 Refills Rinse mouth after use. Gabapentin (Neurontin) 300 Mg Cap 300 MG PO TID, #90 CAP 0 Refills Lorazepam (Ativan) 0.5 Mg Tab 0.5 MG PO Q8H PRN for ANXIETY AND/OR AGITATION, TAB 0 Refills Methocarbamol (Methocarbamol) 500 Mg Tab 500 MG PO TID for Muscle Spasm, #90 TAB 0 Refills Mirabegron (Myrbetriq) 50 Mg Tab 50 MG PO DAILY for Urinary Symptom Managemen, #30 TAB 0 Refills Nortriptyline (Nortriptyline) 25 Mg Cap 25 MG PO HS, #30 CAP 2 Refills Omeprazole (Omeprazole) 40 Mg Cap 40 MG PO BIDAC, #60 CAP 0 Refills Oxycodone (Oxycodone) 10 Mg Tab 10 MG PO Q6H PRN for PAIN, #15 TAB 0 Refills (This prescription has been renewed ) Quetiapine (Quetiapine) 25 Mg Tab 25 MG PO HS, #90 TAB 1 Refill Tiotropium Inh (Spiriva Handihaler) 18 Mcg Cap 18 MCG INH DAILY for COPD, #90 CAP 1 Refill Varenicline (Chantix) 1 Mg Tab 1 MG PO BIDPC for Smoking cessation, #60 TAB 0 Refills Discontinued Medications: Lavttjroca-Bhcqagiqnqssj-Xdwvtwiu (Fioricet) 50-300-40 Mg Cap 2 CAP PO Q4H PRN for HEADACHE, CAP 0 Refills Nadira Daily MD Dec 31, 2016 10:28
[2016-12-31] MEDS: ONDANSETRON HCL 4 MG/2 ML VIAL IVP PRN ×2 (13:45→22:45)
--- NOTE | 2016-12-31 15:17 | HHI.NSPN ---
(Dalia Narayanan) Note Status Status: Progress Note (Dalia Narayanan) Interval History Interval History Ms. Manuel is a 41-year-old woman who has a history of pseudotumor cerebri for which she underwent a INFRASTRUCTURE SOFTWARE ENGINEER shunt placement. She also has history of chronic migraine headaches. She relates that she has been having abdominal pain and notices a cystic protuberance to the abdomen where the shunt terminates and presented to the emergency room. She has been evaluated by the neurosurgery service and the diagnosis was distal INFRASTRUCTURE SOFTWARE ENGINEER shunt malfunction, rule out infection. Subcutaneous fluid was aspirated and sent for culture. She did have an abdominal CT scan and no masses were seen. The shunt catheter was seen to be herniating into the subcutaneous tissue containing fluid. 12/28: c/o of headaches, fluid collection from the shunt in the abdomen 12/29: no change, LP opening pressures 35. scheduled for revision of shunt tomorrow. 12/31: s/p revision of lumboperitoneal shunt yesterday, neuro stable, c/o mild headaches (Dalia Narayanan) Labs, Micro, & Vital Signs Results Date Time Temp Pulse Resp B/P (MAP) Pulse Ox O2 Delivery O2 Flow Rate FiO2 12/31/16 12:00 99.5 78 20 157/84 (108) 100 12/31/16 08:13 99.0 85 20 140/81 (100) 99 12/31/16 05:56 98.5 86 18 141/77 (98) 96 12/31/16 00:49 98.8 90 18 145/82 (103) 98 12/30/16 21:26 98.8 68 18 151/99 (116) 99 12/30/16 16:00 98.4 75 16 148/84 (105) 97 12/30/16 15:00 98.5 81 12 133/71 (91) 95 Room Air Constitutional Vital Signs Date Time Temp Pulse Resp B/P (MAP) Pulse Ox O2 Delivery O2 Flow Rate FiO2 12/31/16 12:00 99.5 78 20 157/84 (108) 100 12/31/16 08:13 99.0 85 20 140/81 (100) 99 12/31/16 05:56 98.5 86 18 141/77 (98) 96 12/31/16 00:49 98.8 90 18 145/82 (103) 98 12/30/16 21:26 98.8 68 18 151/99 (116) 99 12/30/16 16:00 98.4 75 16 148/84 (105) 97 12/30/16 15:00 98.5 81 12 133/71 (91) 95 Room Air (Dalia Narayanan) Physical Exam She is alert and oriented to time, place and person. Speech is appropriate. Appears comfortable in bed. Cranial nerve examination : pupils equal, round, and reactive to light. Extra- ocular movements are intact. Facial motor are normal and symmetrical. Neck is soft and supple. Muscle strength is 5/5 in all muscle groups of both upper and lower extremities Wound with dry clean Optifoam dressing (Dalia Narayanan) Medications Current Medications Current Medications Medications (Trade) Dose Ordered Sig/Esteban Route PRN Reason Start Time Stop Time Status Last Admin Dose Admin Sodium Chloride (NS Flush) 2 ml UNSCH PRN IV FLUSH FLUSH AFTER USING IV ACCESS 12/26/16 06:30 Sodium Chloride (NS Flush) 2 ml BID IV FLUSH 12/26/16 09:00 12/31/16 08:24 Ondansetron HCl (Zofran Inj) 4 mg Q6H PRN IVP NAUSEA OR VOMITING 12/26/16 06:30 12/31/16 13:45 Acetaminophen (Tylenol) 650 mg Q6H PRN PO FEVER/PAIN SCALE 1 TO 2 12/26/16 06:30 12/26/16 08:59 Oxycodone HCl (Roxicodone) 5 mg Q4H PRN PO PAIN SCALE 3 TO 5 12/26/16 06:30 Senna/Docusate Sodium (Nadeen-Colace) 1 tab BID PO 12/26/16 09:00 12/31/16 08:18 Magnesium Hydroxide (Milk Of Magnesia Liq) 30 ml Q12H PRN PO Mild constipation 12/26/16 06:30 Sennosides (Senokot) 17.2 mg Q12H PRN PO Moderate constipation 12/26/16 06:30 Bisacodyl (Dulcolax Supp) 10 mg DAILY PRN RECTAL SEVERE CONSITIPATION 12/26/16 06:30 Lactulose (Lactulose Liq) 30 ml DAILY PRN PO SEVERE CONSITIPATION 12/26/16 06:30 Trimethobenzamide HCl (Tigan Inj) 200 mg Q6H PRN IM NAUSEA/VOMITING 12/26/16 06:30 Dicyclomine HCl (Bentyl) 20 mg BID PO 12/26/16 09:00 12/31/16 08:18 Gabapentin (Neurontin) 300 mg TID PO 12/26/16 09:00 12/31/16 12:49 Methocarbamol (Robaxin) 500 mg TID PO 12/26/16 09:00 12/31/16 12:49 Tiotropium [place] (Spiriva Inh) 18 mcg DAILY INH 12/26/16 09:00 12/31/16 08:21 Albuterol Sulfate (Proair Hfa Inh) 2 puff Q6H PRN INH SHORTNESS OF BREATH 12/26/16 08:45 Oxycodone HCl (Roxicodone) 10 mg Q4H PRN PO pain 6-10 12/26/16 09:45 12/31/16 12:50 Duloxetine HCl (Cymbalta Dr) 60 mg DAILY PO 12/27/16 09:00 12/31/16 08:18 Lorazepam (Ativan) 0.5 mg Q8H PRN PO ANXIETY AND/OR AGITATION 12/26/16 11:00 Nortriptyline HCl (Pamelor) 25 mg HS PO 12/26/16 21:00 12/29/16 20:10 Quetiapine Fumarate (SEROquel) 25 mg HS PO 12/26/16 21:00 12/30/16 20:50 Tolterodine Tartrate (Detrol La) 4 mg DAILY PO 12/27/16 09:00 12/31/16 08:18 Pantoprazole Sodium (Protonix Inj) 40 mg Q12HR IV PUSH 12/26/16 12:15 12/31/16 08:24 Sucralfate (Carafate Liq) 1 gm ACHS PO 12/26/16 17:00 12/31/16 11:11 Budesonide/ Formoterol Fumarate (Symbicort 160-4.5 Inh) 2 puff BID INH 12/26/16 21:00 12/31/16 08:21 Chlorhexidine Gluconate (Hibiclens 4% Top Soln) 1 applic HS TOP 12/29/16 21:00 12/31/16 21:01 12/30/16 20:51 (Dalia Narayanan) Medical Decision Making MDM Remarks 41 year old female with pseudotumor cerebri with lumboperitoneal shunt placed in 2006, with distal tubing malfunction intractable headaches, with distal tubing malfunction, s/p revision of LP shunt 12/30/16 (Dalia Narayanan) Plan Plan Remarks neuro stable, keep Optifoam dressing on for 1 week, may follow up in office in 1 week for removal (Dalia Narayanan) Attending Statement The exam, history, and the medical decision-making described in the above note were completed with the assistance of the mid-level provider. I reviewed and agree with the findings presented. I attest that I had a [id number] encounter with the patient on the same day, and personally performed and documented my assessment and findings in the medical record. (Thee Mauricio MD) Dalia Narayanan Dec 31, 2016 15:17 Thee Mauricio MD Jan 02, 2017 14:48
[2016-12-31] MEDS: QUEtiapine FUMARATE 25 MG TAB PO SCH (21:29)
[2016-12-31] MEDS: NORTRIPTYLINE HCL 25 MG CAP PO SCH (21:30)
[2016-12-31] MEDS: ACETAMINOPHEN 325 MG TAB PO PRN (21:33)
[2016-12-31] MEDS: CHLORHEXIDINE GLUCONATE 4% SOLN 120 ML BTL TOP SCH (21:33)
[2017-01-01] VITALS (7 sets, daily range): BP systolic 130–148; BP diastolic 64–83; PULSE 75–99; RESP 18–20; TEMP 98.7–101; O2SAT 97–100
[2017-01-01] MEDS ORDERED: PROT40TA PO (08:07)
[2017-01-01] MEDS: TOLTERODINE TARTRATE 4 MG CAP LA PO SCH (08:11)
[2017-01-01] MEDS: METHOCARBAMOL 500 MG TAB PO SCH ×3 (08:11→17:28)
[2017-01-01] MEDS: DICYCLOMINE HCL 20 MG TAB PO SCH ×2 (08:11→21:04)
[2017-01-01] MEDS: DOCUSATE SODIUM 50 MG/SENNA 8.6 MG TAB PO SCH ×2 (08:11→21:03)
[2017-01-01] MEDS: GABAPENTIN 300 MG CAP PO SCH ×3 (08:11→17:29)
[2017-01-01] MEDS: SUCRALFATE 1 GM/10 ML CUP PO SCH ×4 (08:11→21:01)
[2017-01-01] MEDS: DULoxetine HCl DR 60 MG CAP PO SCH (08:12)
[2017-01-01] MEDS: SODIUM CHLORIDE 0.9% FLUSH 10 ML FLUSH IV FLUSH SCH ×2 (08:15→21:04)
[2017-01-01] MEDS: BUDESONIDE-FORMOTEROL 160/4.5 MCG INHALER INH SCH ×2 (08:15→21:06)
[2017-01-01] MEDS: TIOTROPIUM BROMIDE 18 MCG INH INH SCH (08:15)
--- NOTE | 2017-01-01 09:08 | HHI.PR ---
Subjective Remarks With the fevers 101 overnight. However she did have a bowel movement yesterday and she has less abdominal pain is time. No nausea or vomiting. She is able to tolerate food. No chest pain. No headaches. No urinary complaints. Denies cough or shortness of breath. Objective Vitals Vital Signs Date Time Temp Pulse Resp B/P (MAP) Pulse Ox O2 Delivery O2 Flow Rate FiO2 01/01/17 05:51 99.5 92 18 133/73 (93) 100 01/01/17 02:00 101.0 99 18 148/83 (104) 97 01/01/17 01:10 99.7 12/31/16 23:50 100.2 12/31/16 21:12 101.2 92 18 158/86 (110) 99 12/31/16 16:00 99.2 89 20 164/81 (108) 96 12/31/16 12:00 99.5 78 20 157/84 (108) 100 I/O 12/31/16 12/31/16 12/31/16 01/01/17 01/01/17 01/01/17 07:00 15:00 23:00 07:00 15:00 23:00 Intake Total 50 ml 480 ml Balance 50 ml 480 ml Intake Oral 480 ml IV Total 50 ml # Voids 2 4 Result Diagram: 12/30/16 0756 12/30/16 0756 Imaging Last Impressions Chest X-Ray 01/01/17 0000 Signed Impressions: Service Date/Time: Sunday, January 01, 2017 09:43 - CONCLUSION: 1. Basilar infiltrates with air bronchograms on the left. Exam is concerning for possible pneumonia. Abraham Mendes MD Abdomen/Pelvis CT 01/01/17 0000 Signed Impressions: Service Date/Time: Sunday, January 01, 2017 11:39 - CONCLUSION: 1. The previously noted focal fluid collection in the anterior abdominal wall appears to have been successfully drained with a small amount of residual fluid remaining and postsurgical changes. 2. There are 2 peritoneal catheter is within the mid to lower abdomen in place. 3. Otherwise, no other new or significant changes are demonstrated compared to the prior study. Mikhail Cuello MD Lumbar Puncture Fluoroscopy 12/29/16 0000 Signed Impressions: Service Date/Time: Thursday, December 29, 2016 09:40 - CONCLUSION: Uncomplicated fluoroscopically guided lumbar puncture with pressures as above. Ru Medina MD Objective Remarks GENERAL: Well-nourished, well-developed middle aged female patient in NAD. SKIN: Warm and dry. No rash. NECK: Supple. Trachea midline. CARDIOVASCULAR: Regular rate and rhythm. S1, S2 noted. No murmur appreciated. RESPIRATORY: No accessory muscle use. Clear to auscultation. Breath sounds equal bilaterally. GASTROINTESTINAL: Abdomen soft, nondistended, mild diffuse TTP with shunt protrusion into abdominal wall. Normoactive bowel sounds x4. MUSCULOSKELETAL: No obvious deformities. Extremities without clubbing, cyanosis , or edema. NEUROLOGICAL: Awake and alert. Negative Brudzinski sign, negative Kernig sign. No obvious cranial nerve deficits. Motor grossly within normal limits. Moves all extremities spontaneously. Normal speech. Procedures LP by IR Shunt revision by Dr Mauricio A/P Problem List: (1) vp packaging shunt malfunction (2) Intractable abdominal pain ICD Code: R10.9 - Unspecified abdominal pain Status: Acute Assessment and Plan 41-year-old female with history of pseudotumor cerebri s/p HUMAN RESOURCES RECEPTIONIST shunt, sarcoidosis , COPD, tobacco use, presents with ongoing abdominal pain, nausea, and vomiting. Distal HUMAN RESOURCES RECEPTIONIST Shunt Malfunction: patient with headache/nausea/vomiting/abdominal pain, hx of HUMAN RESOURCES RECEPTIONIST shunt. Abd/pelvis CT images reviewed, shows shunt catheter herniating into the subcutaneous tissues containing fluid. -Consult general surgery, Dr. Aviles, recommends neurosurgery evaluation -Consulted neurology -Consider further imaging including head CT/shuntogram -Status post aspiration of the distal HUMAN RESOURCES RECEPTIONIST shunt. Per neurosurgery, if negative for infection may need revision. If infected needs to be removed and replaced after treatment of infection -Supportive treatment with IVF, antiemetics, and pain control with oxycodone prn and IV dilaudid prn breakthrough pain -Neurosurgery consulted and ff. S/P LP by IR and Shunt revision by Dr Mauricio - Received extra dose Dilaudid after LP - DC IV Dilaudid 0.5 mg breakthrough pain. Continue oxycodone per pain scale. Abdominal Pain/Nausea/Vomiting 2/2 Pyloric channel and duodenal bulb ulcer. Resolved now tolerates food S/P EGD with biopsy of ulcers 12/28/[address] Rodriguez. avoid NSAIDS/ASA. -Continue PPI, Bentyl, and Carafate -Supportive treatment with IVF, antiemetics, and pain control prn -Consult GI for further recommendations -EGD in 2 months SIRS: Had fevers 101.6 , tachycardia on 12/31/16 at night . We'll order CT abdomen with contrast discussed with Dr. Mauricio. Also order blood cultures, chest x-ray, UA. Started Zosyn IV antibiotics. Consult infectious disease for further recommendations. Headache: suspect secondary to above. Headaches improved significantly after the LP and shunt revision. -consider brain imaging however will defer to neurology -continue pain control prn Proptosis. TSH is normal. Hypokalemia: K 3.3, suspect secondary to recent vomiting and poor oral intake. Mag 2.0. -give po KCl replacement -repeat BMP, monitor K, replace as needed COPD: chronic, stable, does not appear to be in exacerbation -continue patient's Advair and Spiriva -Albuterol nebs prn Anxiety/Depression/Chronic Pain: chronic -continue patient's home meds including methocarbamol, gabapentin, duloxetine , nortriptyline, Seroquel, and Ativan prn -continue to monitor All other medical conditions stable, continue home medications as appropriate. DVT Prophylaxis: teds/SCDs Discussed with the patient, nurse, Dr. Mauricio and Julisa DANIELS from neurosurgical team Nadira aDily MD Jan 01, 2017 09:08
[2017-01-01] MEDS: PANTOPRAZOLE SOD 40 MG DELAYED RELEASE TAB PO SCH ×2 (09:22→21:03)
--- NOTE | 2017-01-01 10:11 | RADRPT ---
EXAM DATE/TIME: 01/01/2017 09:43 [facility] COMPARISON: CT ABDOMEN & PELVIS W CONTRAST, December 26, 2016, 5:18. INDICATIONS : Fever- no chest complaint. MEDICAL HISTORY : Chronic obstructive pulmonary disease. Gastroesophageal reflux disease. Asthma. SURGICAL HISTORY : Tubal ligation. PAPER PLATE MACHINE TENDER shunt ENCOUNTER: Subsequent ACUITY: 2 days PAIN SCORE: 0/10 LOCATION: Bilateral chest FINDINGS: The exam demonstrates no infiltrate the lung bases. There are air bronchograms in the retrocardiac ar ea of the left lower lobe. The exam would be concerning for a basilar pneumonia. The remainder of the lungs are clear. The heart is normal in size. The mediastinal contours are within normal limits. The osseous structures are intact. CONCLUSION: 1. Basilar infiltrates with air bronchograms on the left. Exam is concerning for possible pneumonia. Abraham Mendes MD on January 01, 2017 at 10:07 Board Certified Radiologist. This report was verified electronically.
--- NOTE | 2017-01-01 10:28 | HHI.NSPN ---
Note Status Status: Progress Note Interval History Interval History Ms. Manuel is a 41-year-old woman who has a history of pseudotumor cerebri for which she underwent a WOODWORKING MACHINE OFFBEARER shunt placement. She also has history of chronic migraine headaches. She relates that she has been having abdominal pain and notices a cystic protuberance to the abdomen where the shunt terminates and presented to the emergency room. She has been evaluated by the neurosurgery service and the diagnosis was distal WOODWORKING MACHINE OFFBEARER shunt malfunction, rule out infection. Subcutaneous fluid was aspirated and sent for culture. She did have an abdominal CT scan and no masses were seen. The shunt catheter was seen to be herniating into the subcutaneous tissue containing fluid. 12/28: c/o of headaches, fluid collection from the shunt in the abdomen 12/29: no change, LP opening pressures 35. scheduled for revision of shunt tomorrow. 12/31: s/p revision of lumboperitoneal shunt yesterday, neuro stable, c/o mild headaches 01/01: febrile this am, highest temp 101.2 pt reports however she is feeling much better today with improved STEVENSON's, eating her breakfast comfortably, has mild tenderness in the abdomen when palpated Labs, Micro, & Vital Signs Results Date Time Temp Pulse Resp B/P (MAP) Pulse Ox O2 Delivery O2 Flow Rate FiO2 01/01/17 08:00 99.7 91 20 130/74 (92) 98 01/01/17 05:51 99.5 92 18 133/73 (93) 100 01/01/17 02:00 101.0 99 18 148/83 (104) 97 01/01/17 01:10 99.7 12/31/16 23:50 100.2 12/31/16 21:12 101.2 92 18 158/86 (110) 99 12/31/16 16:00 99.2 89 20 164/81 (108) 96 12/31/16 12:00 99.5 78 20 157/84 (108) 100 Constitutional Vital Signs Date Time Temp Pulse Resp B/P (MAP) Pulse Ox O2 Delivery O2 Flow Rate FiO2 01/01/17 08:00 99.7 91 20 130/74 (92) 98 01/01/17 05:51 99.5 92 18 133/73 (93) 100 01/01/17 02:00 101.0 99 18 148/83 (104) 97 01/01/17 01:10 99.7 12/31/16 23:50 100.2 12/31/16 21:12 101.2 92 18 158/86 (110) 99 12/31/16 16:00 99.2 89 20 164/81 (108) 96 12/31/16 12:00 99.5 78 20 157/84 (108) 100 Physical Exam She is alert and oriented to time, place and person. Appears comfortable in bed eating her breakfast. Speech is appropriate. Does not appear toxic. Cranial nerve examination : pupils equal, round, and reactive to light. Extra- ocular movements are intact. Facial motor are normal and symmetrical. Neck is soft and supple. Mild tenderness to palpation over the abdomen, soft, no rigidity. Muscle strength is 5/5 in all muscle groups of both upper and lower extremities Wound with dry clean Optifoam dressing Medications Current Medications Current Medications Medications (Trade) Dose Ordered Sig/Esteban Route PRN Reason Start Time Stop Time Status Last Admin Dose Admin Sodium Chloride (NS Flush) 2 ml UNSCH PRN IV FLUSH FLUSH AFTER USING IV ACCESS 12/26/16 06:30 Sodium Chloride (NS Flush) 2 ml BID IV FLUSH 12/26/16 09:00 01/01/17 08:15 Ondansetron HCl (Zofran Inj) 4 mg Q6H PRN IVP NAUSEA OR VOMITING 12/26/16 06:30 12/31/16 22:45 Acetaminophen (Tylenol) 650 mg Q6H PRN PO FEVER/PAIN SCALE 1 TO 2 12/26/16 06:30 12/31/16 21:33 Oxycodone HCl (Roxicodone) 5 mg Q4H PRN PO PAIN SCALE 3 TO 5 12/26/16 06:30 Senna/Docusate Sodium (Nadeen-Colace) 1 tab BID PO 12/26/16 09:00 01/01/17 08:11 Magnesium Hydroxide (Milk Of Magnesia Liq) 30 ml Q12H PRN PO Mild constipation 12/26/16 06:30 12/31/16 21:44 Sennosides (Senokot) 17.2 mg Q12H PRN PO Moderate constipation 12/26/16 06:30 01/01/17 08:11 Bisacodyl (Dulcolax Supp) 10 mg DAILY PRN RECTAL SEVERE CONSITIPATION 12/26/16 06:30 Lactulose (Lactulose Liq) 30 ml DAILY PRN PO SEVERE CONSITIPATION 12/26/16 06:30 Trimethobenzamide HCl (Tigan Inj) 200 mg Q6H PRN IM NAUSEA/VOMITING 12/26/16 06:30 Dicyclomine HCl (Bentyl) 20 mg BID PO 12/26/16 09:00 01/01/17 08:11 Gabapentin (Neurontin) 300 mg TID PO 12/26/16 09:00 01/01/17 08:11 Methocarbamol (Robaxin) 500 mg TID PO 12/26/16 09:00 01/01/17 08:11 Tiotropium [place] (Spiriva Inh) 18 mcg DAILY INH 12/26/16 09:00 01/01/17 08:15 Albuterol Sulfate (Proair Hfa Inh) 2 puff Q6H PRN INH SHORTNESS OF BREATH 12/26/16 08:45 Oxycodone HCl (Roxicodone) 10 mg Q4H PRN PO pain 6-10 12/26/16 09:45 01/01/17 09:21 Duloxetine HCl (Cymbalta Dr) 60 mg DAILY PO 12/27/16 09:00 01/01/17 08:12 Lorazepam (Ativan) 0.5 mg Q8H PRN PO ANXIETY AND/OR AGITATION 12/26/16 11:00 Nortriptyline HCl (Pamelor) 25 mg HS PO 12/26/16 21:00 12/31/16 21:30 Quetiapine Fumarate (SEROquel) 25 mg HS PO 12/26/16 21:00 12/31/16 21:29 Tolterodine Tartrate (Detrol La) 4 mg DAILY PO 12/27/16 09:00 01/01/17 08:11 Sucralfate (Carafate Liq) 1 gm ACHS PO 12/26/16 17:00 01/01/17 08:11 Budesonide/ Formoterol Fumarate (Symbicort 160-4.5 Inh) 2 puff BID INH 12/26/16 21:00 01/01/17 08:15 Pantoprazole Sodium (Protonix) 40 mg Q12HR PO 01/01/17 09:00 01/01/17 09:22 Piperacillin Sod/ Tazobactam Sod 100 ml @ 200 mls/hr Q6H IV 01/01/17 11:00 Hydromorphone HCl (Dilaudid Pf Inj) 0.5 mg Q4H PRN IV PUSH breakthrough pain 01/01/17 10:00 Medical Decision Making MDM Remarks 41 year old female with pseudotumor cerebri with lumboperitoneal shunt placed in 2006, with distal tubing malfunction intractable headaches, with distal tubing malfunction, s/p revision of LP shunt 12/30/16, headaches improved LP CSF, shunt CSF and peritoneal fluid cx negative acute fevers 01/01, clinically appears better today, mild tenderness in the abdomen to palpation. Plan Plan Remarks CT Abdomen now, f/u results, Dr. Mauricio to review upon completion initiate prophylactic abx keep Optifoam dressing on for 1 week, medical management tim medical physician, Dalia Narayanan Jan 01, 2017 10:28
[2017-01-01] MEDS ORDERED: DIATRIZOATE MEGLUM/DIATRIZOATE SOD 9 ML CUP PO ONE (10:45)
[2017-01-01 11:32] LABS: BLOOD, URINE NEG (NEG); GLUCOSE,URINE NEG (NEG); KETONE, URINE NEG (NEG); NITRITE,URINE NEG (NEG); PH, URINE 7.5 (5.0-8.5); URINE COLOR YELLOW (YELLW/STRAW)
[2017-01-01 11:37] LABS: BACTERIA, URINE FEW /hpf; COMMENT (UR) CULTURE INDICATED; CULTURE IF INDICATED CULTURE INDICATED; RBC, URINE 0-3 /hpf (0-3); SQUAMOUS EPITHELIAL CELL URINE > 8 /hpf (0-5)
[2017-01-01] MEDS ORDERED: IOHEXOL 350 MG/ML 10 ML VIAL (for RAD DIAG) IVCONTRAST ONE (11:56)
--- NOTE | 2017-01-01 12:10 | RADRPT ---
EXAM DATE/TIME: 01/01/2017 11:39 [facility] COMPARISON: CT ABDOMEN & PELVIS W CONTRAST, December 26, 2016, 5:18. INDICATIONS : Fever and abdominal pain status post revision of lumboperitoneal shunt yesterday IV CONTRAST: 95 cc Omnipaque 350 (iohexol) IV ORAL CONTRAST: No oral contrast ingested. RADIATION DOSE: 7.04 CTDIvol (mGy) MEDICAL HISTORY : Pseudotumor cerebri, shunt SURGICAL HISTORY : Cholecystectomy. s/p revision of lumboperitoneal shunt yesterday ENCOUNTER: Initial ACUITY: 2 days PAIN SCALE: 5/10 LOCATION: abdomen TECHNIQUE: Volumetric scanning of the abdomen and pelvis was performed. Using automated exposure control and ad justment of the mA and/or kV according to patient size, radiation dose was kept as low as reasonably achievable to obtain optimal diagnostic quality images. DICOM format image data is available electro nically for review and comparison. FINDINGS: LOWER LUNGS: Stable mild interstitial changes in both lung bases. LIVER: Homogeneous density without lesion. There is no dilation of the biliary tree. Gallbladder surgically removed.. SPLEEN: Normal size without lesion. PANCREAS: Within normal limits. KIDNEYS: Normal in size and shape. There is no mass, stone or hydronephrosis. ADRENAL GLANDS: Within normal limits. VASCULAR: There is no aortic aneurysm. BOWEL/MESENTERY: The stomach, small bowel, and colon demonstrate no acute abnormality. There is no free intraperitone al air or fluid. ABDOMINAL WALL: The previously noted focal fluid collection in the anterior, wall has been successfully drained. Ther e is only a very small amount of residual fluid remaining along with some subcutaneous air. There is some edema in the subcutaneous soft tissues consistent with recent postsurgical changes. There are 2 peritoneal catheters within the abdomen. RETROPERITONEUM: There is no lymphadenopathy. BLADDER: No wall thickening or mass. REPRODUCTIVE: There is a small amount of fluid in the cul-de-sac. The uterus appears to be within normal limits for size. There's been no significant changes compared to the prior study. INGUINAL: There is no lymphadenopathy or hernia. MUSCULOSKELETAL: Within normal limits for patient age. There is a spinal catheter noted in the lumbar spinal canal. Th is is unchanged compared to the prior study. The findings were called by telephone to the ordering physician's office and given to the PA. CONCLUSION: 1. The previously noted focal fluid collection in the anterior abdominal wall appears to have been díaz ccessfully drained with a small amount of residual fluid remaining and postsurgical changes. 2. There are 2 peritoneal catheter is within the mid to lower abdomen in place. 3. Otherwise, no other new or significant changes are demonstrated compared to the prior study. Mikhail Cuello MD on January 01, 2017 at 11:57 Board Certified Radiologist. This report was verified electronically.
--- NOTE | 2017-01-01 14:23 | HHI.GIFU ---
Subjective Remarks Pt in bed eating lunch. Reports nausea at this time. Decreased appetite, did not eat much of breakfast or lunch. Reports continued abdominal pain, mostly localized to the site of TILE GRINDER shunt S/P revision of lumbarperitoneal shunt with replacement of peritoneal catheter. Has not had BM in a few days, reports abdominal pain with straining, so while she feels like she needs to have a BM she is intentionally avoiding it due to pain. (Kasandra Armenta) Objective Vitals I&O Vital Signs Date Time Temp Pulse Resp B/P (MAP) Pulse Ox O2 Delivery O2 Flow Rate FiO2 01/01/17 12:00 98.7 91 20 133/78 (96) 100 01/01/17 08:00 99.7 91 20 130/74 (92) 98 01/01/17 05:51 99.5 92 18 133/73 (93) 100 01/01/17 02:00 101.0 99 18 148/83 (104) 97 01/01/17 01:10 99.7 12/31/16 23:50 100.2 12/31/16 21:12 101.2 92 18 158/86 (110) 99 12/31/16 16:00 99.2 89 20 164/81 (108) 96 I/O 12/31/16 12/31/16 12/31/16 01/01/17 01/01/17 01/01/17 07:00 15:00 23:00 07:00 15:00 23:00 Intake Total 50 ml 480 ml Balance 50 ml 480 ml Intake Oral 480 ml IV Total 50 ml # Voids 2 4 Laboratory Laboratory Tests Test 01/01/17 10:30 Urine Color YELLOW Urine Turbidity HAZY Urine pH 7.5 Urine Specific [place] 1.015 Urine Protein 30 Urine Glucose (UA) NEG Urine Ketones NEG Urine Occult Blood NEG Urine Nitrite NEG Urine Bilirubin NEG Urine Urobilinogen LESS THAN 2.0 Urine Leukocyte Esterase MOD Urine RBC 0-3 Urine WBC 9-14 Urine Squamous Epithelial Cells > 8 Urine Bacteria FEW Urine Trichomonas FEW Microscopic Urinalysis Comment CULTURE INDICATED Date/Time Source Procedure Growth Status 12/30/16 13:30 Cerebral Spinal Fluid Shunt Fluid Gram Stain - Final Resulted 12/30/16 13:30 Cerebral Spinal Fluid Shunt Fluid CSF Culture - Preliminary NO GROWTH IN 48 HOURS. Resulted 01/01/17 10:30 Urine Clean Catch Urine Culture Pending Received Imaging Last Impressions Chest X-Ray 01/01/17 0000 Signed Impressions: Service Date/Time: Sunday, January 01, 2017 09:43 - CONCLUSION: 1. Basilar infiltrates with air bronchograms on the left. Exam is concerning for possible pneumonia. Abraham Mendes MD Abdomen/Pelvis CT 01/01/17 0000 Signed Impressions: Service Date/Time: Sunday, January 01, 2017 11:39 - CONCLUSION: 1. The previously noted focal fluid collection in the anterior abdominal wall appears to have been successfully drained with a small amount of residual fluid remaining and postsurgical changes. 2. There are 2 peritoneal catheter is within the mid to lower abdomen in place. 3. Otherwise, no other new or significant changes are demonstrated compared to the prior study. Mikhail Cuello MD Lumbar Puncture Fluoroscopy 12/29/16 0000 Signed Impressions: Service Date/Time: Thursday, December 29, 2016 09:40 - CONCLUSION: Uncomplicated fluoroscopically guided lumbar puncture with pressures as above. Ru Medina MD Physical Exam HEENT: Normocephalic; atraumatic; no jaundice. CHEST: CTA CARDIAC: RRR ABDOMEN: Soft, nondistended, tenderness to site of peritoneal catheter, bandage covering site; no hepatosplenomegaly; bowel sounds are present in all four quadrants. EXTREMITIES: No clubbing, cyanosis, or edema. SKIN: Normal; no rash; no jaundice. COMMUNITY BOARD MEMBER: No focal deficits; alert and oriented times three. (Kasandra Armenta [facility]) Assessment and Plan Plan ASSESSMENT: - Abdominal pain, nausea, vomiting, with severe heartburn. Hx of PUD with perforation in 2015. She recently started taking BC Powder (2 packs every 2 hours) in December to try to stop taking narcotics. For the past 1.5 weeks, she has had frequent n/v, decreased appetite, and has only been able to take Gatorade. Daily heartburn (severe) taking baking soda for this, off of omeprazole at home. S/P EGD (12/28/16)---> Pyloric channel and duodenal bulb ulcer. Pathology --> Focally ulcerated gastric antral type mucosal biopsies with severe acute suppurative and chronic non-specific gastritis negative for intestinal metaplasia and dysplasia, Michell stain negative for Helicobacter. Continue PPI/Carafate. - TILE GRINDER Shunt malfunction, abdominal pain with subcutaneous fluid collection at site of shunt. CT Scan abdomen and pelvis (01/01/17)---> The previously noted focal fluid collection in the anterior abdominal wall appears to have been successfully drained with a small amount of residual fluid remaining and postsurgical changes. There are 2 peritoneal catheter is within the mid to lower abdomen in place. Otherwise, no other new or significant changes are demonstrated and compared to prior study. Nsx following, s/p aspiration of the subcutaneous fluid for culture- no growth 72 hours. S/P LP (12/29). CSF culture shows no growth. Pt complaining of continued abdominal pain, worse at site of peritoneal catheter. Reports no BM in a few days, feels like she needs to have one but is avoiding it due to abdominal pain with straining. Will add Miralax daily. - Fever. Plan was to discharge pt yesterday, however she developed a fever over night. ID was consulted. Zosyn. - COPD, Anxiety, Depression, Chronic pain, hypokalemia per attending. PLAN: - MIRI - Start Miralax 17gm daily - Cont. Protonix 40mg PO BID - Cont. Carafate 1 gram PO ACHS - NSx following - ID following - GI will sign off, please reconsult as needed - PT seen and examined by Dr. Rodriguez and myself and this note is written on his behalf (Kasandra Armenta) Physician Comments Patient seen and examined Agree with above Continue with current supportive care Monitor labs We will sign off (Santiago Rodriguez MD) Kasandra Armenta Jan 01, 2017 14:23 Santiago Rodriguez MD Jan 01, 2017 20:13
[2017-01-01] MEDS: PIPERACIL-TAZO 4.5 GM PREMIX 100 ML IV SCH ×3 (15:44→22:54)
--- NOTE | 2017-01-01 16:40 | PD.ID.CON ---
History of Present Illness Service ID Consult Requested By Dr Daily Reason for Consult fever Primary Care Physician Unknown Diagnoses: History of Present Illness 41 F with pseudotumor cerebri and lumbar peritoneal shunt presented with nausea vomiting 1 week ago She has no fever and borderline leukocytosis CSF was not c/w infection, final culture was negative She was diagnosed with shunt malfunction based on CT findings and underwent revision of lumbarperitoneal shunt with replacement of peritoneal catheter by Dr Mauricio on Dec 30, 2016 Intraop specimen of CSF also no growth 36 hrs post op pt developpped fever with Tmax of 101.2 and abdominal pain Fever now resolved She was started on broad spectrum abx, blood clx were ordered She still has some fever and c/o persistent abdominal pain Takes full diiet, having normal BMs Review of Systems Except as stated in HPI: all other systems reviewed are Neg Past Family Social History Allergies: Coded Allergies: morphine (Unverified Allergy, Severe, WELTS, 12/26/16) MRI PRECAUTION (Verified Adverse Reaction, Severe, SPETZLER SHUNT VALVE PER YAMILE. 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 SUPERVISOR shunt placement and revisions Tubal ligation Bronchoscopy Neck surgery Multiple lumbar surgeries Lung biopsy Cholecystectomy Reported Medications Active Ordered Medications Medications where reviewed in EMR Antibiotics Include: zosyn Family History Mother with lymphoma Grandmother with CVA and diabetes Grandfather with colorectal cancer, Social History Smokes tobacco 1/2 PPD Denies any alcohol or illicit drug use Physical Exam Vital Signs Vital Signs Date Time Temp Pulse Resp B/P (MAP) Pulse Ox O2 Delivery O2 Flow Rate FiO2 01/01/17 16:15 98.8 91 20 136/64 (88) 100 01/01/17 12:00 98.7 91 20 133/78 (96) 100 01/01/17 08:00 99.7 91 20 130/74 (92) 98 01/01/17 05:51 99.5 92 18 133/73 (93) 100 01/01/17 02:00 101.0 99 18 148/83 (104) 97 01/01/17 01:10 99.7 12/31/16 23:50 100.2 12/31/16 21:12 101.2 92 18 158/86 (110) 99 Physical Exam CONSTITUTIONAL/GENERAL: This is an adequately nourished patient, in no apparent distress. TUBES/LINES/DRAINS: SKIN: No jaundice, rashes, or lesions. Skin temperature appropriate. Not diaphoretic. HEAD: Atraumatic. Normocephalic. EYES: Pupils equal and round and reactive. Extraocular motions intact. No scleral icterus. No injection or drainage. Fundi not examined. ENT: Hearing grossly normal. Nose without bleeding or purulent drainage. Throat without visible erythema, exudates, masses, or lesions. NECK: Trachea midline. Supple, nontender. CARDIOVASCULAR: Regular rate and rhythm without murmurs, gallops, or rubs. No JVD. Peripheral pulses symmetric. RESPIRATORY/CHEST: Symmetric, unlabored respirations. Clear to auscultation. Breath sounds equal bilaterally. No wheezes, rales, or rhonchi. GASTROINTESTINAL: Abdomen soft, diffusely tender mostly on the L side, moderately to markedly distended. Incision dry, clean No hepato-splenomegaly, or palpable masses. No guarding. Bowel sounds present. GENITOURINARY: Without palpable bladder distension. . MUSCULOSKELETAL: Extremities without clubbing, cyanosis, or edema. No joint tenderness or effusion noted. No calf tenderness. No mottling or clubbing. LYMPHATICS: No palpable cervical or supraclavicular adenopathy. NEUROLOGICAL: Awake and alert. Motor and sensory grossly within normal limits. Follows commands. Clear speech. Moves all extremities. PSYCHIATRIC: No obvious anxiety/depression. no apparent hallucinations or other psychotic thought process. Laboratory Laboratory Tests Test 01/01/17 10:30 Urine Color YELLOW Urine Turbidity HAZY Urine pH 7.5 Urine Specific [place] 1.015 Urine Protein 30 Urine Glucose (UA) NEG Urine Ketones NEG Urine Occult Blood NEG Urine Nitrite NEG Urine Bilirubin NEG Urine Urobilinogen LESS THAN 2.0 Urine Leukocyte Esterase MOD Urine RBC 0-3 Urine WBC 9-14 Urine Squamous Epithelial Cells > 8 Urine Bacteria FEW Urine Trichomonas FEW Microscopic Urinalysis Comment CULTURE INDICATED Date/Time Source Procedure Growth Status 01/01/17 14:50 Blood Peripheral Aerobic Blood Culture Pending Received 01/01/17 14:50 Blood Peripheral Anaerobic Blood Culture Pending Received 12/30/16 13:30 Cerebral Spinal Fluid Shunt Fluid Gram Stain - Final Resulted 12/30/16 13:30 Cerebral Spinal Fluid Shunt Fluid CSF Culture - Preliminary NO GROWTH IN 48 HOURS. Resulted 01/01/17 10:30 Urine Clean Catch Urine Culture Pending Received Result Diagram: 12/30/16 0756 12/30/16 0756 Imaging Last Impressions Chest X-Ray 01/01/17 0000 Signed Impressions: Service Date/Time: Sunday, January 01, 2017 09:43 - CONCLUSION: 1. Basilar infiltrates with air bronchograms on the left. Exam is concerning for possible pneumonia. Abraham Mendes MD Abdomen/Pelvis CT 01/01/17 0000 Signed Impressions: Service Date/Time: Sunday, January 01, 2017 11:39 - CONCLUSION: 1. The previously noted focal fluid collection in the anterior abdominal wall appears to have been successfully drained with a small amount of residual fluid remaining and postsurgical changes. 2. There are 2 peritoneal catheter is within the mid to lower abdomen in place. 3. Otherwise, no other new or significant changes are demonstrated compared to the prior study. Mikhail Cuello MD Lumbar Puncture Fluoroscopy 12/29/16 0000 Signed Impressions: Service Date/Time: Thursday, December 29, 2016 09:40 - CONCLUSION: Uncomplicated fluoroscopically guided lumbar puncture with pressures as above. Ru Medina MD Assessment and Plan Assessment and Plan Pseudotumor cerebri. lumbar peritoneal shunt malfunction Sp revision of lumbarperitoneal shunt with replacement of peritoneal catheter POD #2 Fever, post op Abdominal pain, CT w/o acute abnormalities cont broad spectrum abx fro now monitor clx monitor cllincailly Discussed Condition With Annmarie Redmond MD Jan 01, 2017 16:40
[2017-01-01] MEDS: HYDROmorphone HCL PF 1 MG/ML VIAL IV PUSH PRN ×2 (17:19→21:02)
[2017-01-01] MEDS: QUEtiapine FUMARATE 25 MG TAB PO SCH (21:04)
[2017-01-01] MEDS: NORTRIPTYLINE HCL 25 MG CAP PO SCH (21:05)
[2017-01-01] MEDS: ONDANSETRON HCL 4 MG/2 ML VIAL IVP PRN (21:14)
[2017-01-02 00:20] VITALS: BP 101/56; PULSE 83; RESP 18; TEMP 98.4; O2SAT 98
[2017-01-02] MEDS: HYDROmorphone HCL PF 1 MG/ML VIAL IV PUSH PRN ×6 (01:11→22:53)
[2017-01-02 05:16] VITALS: BP 112/71; PULSE 78; RESP 18; TEMP 98.4; O2SAT 100
[2017-01-02] MEDS: PIPERACIL-TAZO 4.5 GM PREMIX 100 ML IV SCH ×4 (05:16→22:53)
[2017-01-02] MEDS: ONDANSETRON HCL 4 MG/2 ML VIAL IVP PRN ×3 (07:32→21:35)
[2017-01-02] MEDS: PANTOPRAZOLE SOD 40 MG DELAYED RELEASE TAB PO SCH ×2 (08:02→20:41)
[2017-01-02] MEDS: METHOCARBAMOL 500 MG TAB PO SCH ×3 (08:02→18:22)
[2017-01-02] MEDS: DOCUSATE SODIUM 50 MG/SENNA 8.6 MG TAB PO SCH ×2 (08:02→20:41)
[2017-01-02] MEDS: TOLTERODINE TARTRATE 4 MG CAP LA PO SCH (08:02)
[2017-01-02] MEDS: SUCRALFATE 1 GM/10 ML CUP PO SCH ×4 (08:02→20:40)
[2017-01-02] MEDS: GABAPENTIN 300 MG CAP PO SCH ×3 (08:02→18:22)
[2017-01-02] MEDS: DULoxetine HCl DR 60 MG CAP PO SCH (08:02)
[2017-01-02] MEDS: DICYCLOMINE HCL 20 MG TAB PO SCH ×2 (08:02→20:41)
[2017-01-02] MEDS: POLYETHYLENE GLYCOL 17 GM PKG PO SCH (08:03)
[2017-01-02] MEDS: BUDESONIDE-FORMOTEROL 160/4.5 MCG INHALER INH SCH ×2 (09:00→21:00)
[2017-01-02] MEDS: TIOTROPIUM BROMIDE 18 MCG INH INH SCH (09:00)
[2017-01-02] MEDS: SODIUM CHLORIDE 0.9% FLUSH 10 ML FLUSH IV FLUSH SCH ×2 (09:00→22:53)
--- NOTE | 2017-01-02 09:02 | HHI.PR ---
Subjective Remarks Afebrile now, likely post op fevers. Abd pain is better controlled. No fevers overnight. Less nauseated, but able to eat, eating better. No vomiting, diarrhea or constipation. Headahce improved. Objective Vitals Vital Signs Date Time Temp Pulse Resp B/P (MAP) Pulse Ox O2 Delivery O2 Flow Rate FiO2 01/02/17 05:16 98.4 78 18 112/71 (85) 100 01/02/17 00:20 98.4 83 18 101/56 (71) 98 01/01/17 21:21 99.3 75 18 139/72 (94) 98 01/01/17 16:15 98.8 91 20 136/64 (88) 100 01/01/17 12:00 98.7 91 20 133/78 (96) 100 I/O 01/01/17 01/01/17 01/01/17 01/02/17 01/02/17 01/02/17 06:59 14:59 22:59 06:59 14:59 22:59 Intake Total 1420 ml 100 ml 100 ml Balance 1420 ml 100 ml 100 ml Intake Oral 1420 ml IV Total 100 ml 100 ml # Voids 6 2 Result Diagram: 12/30/16 0756 12/30/16 0756 Imaging Last Impressions Chest X-Ray 01/01/17 0000 Signed Impressions: Service Date/Time: Sunday, January 01, 2017 09:43 - CONCLUSION: 1. Basilar infiltrates with air bronchograms on the left. Exam is concerning for possible pneumonia. Abraham Mendes MD Abdomen/Pelvis CT 01/01/17 0000 Signed Impressions: Service Date/Time: Sunday, January 01, 2017 11:39 - CONCLUSION: 1. The previously noted focal fluid collection in the anterior abdominal wall appears to have been successfully drained with a small amount of residual fluid remaining and postsurgical changes. 2. There are 2 peritoneal catheter is within the mid to lower abdomen in place. 3. Otherwise, no other new or significant changes are demonstrated compared to the prior study. Mikhail Cuello MD Lumbar Puncture Fluoroscopy 12/29/16 0000 Signed Impressions: Service Date/Time: Thursday, December 29, 2016 09:40 - CONCLUSION: Uncomplicated fluoroscopically guided lumbar puncture with pressures as above. Ru Medina MD Objective Remarks GENERAL: Well-nourished, well-developed middle aged female patient in NAD. SKIN: Warm and dry. No rash. NECK: Supple. Trachea midline. CARDIOVASCULAR: Regular rate and rhythm. S1, S2 noted. No murmur appreciated. RESPIRATORY: No accessory muscle use. Clear to auscultation. Breath sounds equal bilaterally. GASTROINTESTINAL: Abdomen soft, nondistended, mild diffuse TTP with shunt protrusion into abdominal wall. Normoactive bowel sounds x4. MUSCULOSKELETAL: No obvious deformities. Extremities without clubbing, cyanosis , or edema. NEUROLOGICAL: Awake and alert. Negative Brudzinski sign, negative Kernig sign. No obvious cranial nerve deficits. Motor grossly within normal limits. Moves all extremities spontaneously. Normal speech. Procedures LP by IR Shunt revision by Dr Mauricio A/P Problem List: (1) svp monetization shunt malfunction (2) Intractable abdominal pain ICD Code: R10.9 - Unspecified abdominal pain Status: Acute Assessment and Plan 41-year-old female with history of pseudotumor cerebri s/p TITLE ONE TEACHER shunt, sarcoidosis , COPD, tobacco use, presents with ongoing abdominal pain, nausea, and vomiting. Distal TITLE ONE TEACHER Shunt Malfunction: patient with headache/nausea/vomiting/abdominal pain, hx of TITLE ONE TEACHER shunt. Abd/pelvis CT images reviewed, shows shunt catheter herniating into the subcutaneous tissues containing fluid. -Consult general surgery, Dr. Aviles, recommends neurosurgery evaluation -Consulted neurology -Consider further imaging including head CT/shuntogram -Status post aspiration of the distal TITLE ONE TEACHER shunt. Per neurosurgery, if negative for infection may need revision. If infected needs to be removed and replaced after treatment of infection -Supportive treatment with IVF, antiemetics, and pain control with oxycodone prn and IV dilaudid prn breakthrough pain -Neurosurgery consulted and ff. S/P LP by IR and Shunt revision by Dr Mauricio - Received extra dose Dilaudid after LP - DC IV Dilaudid 0.5 mg breakthrough pain. Continue oxycodone per pain scale. Abdominal Pain/Nausea/Vomiting 2/2 Pyloric channel and duodenal bulb ulcer. Resolved now tolerates food S/P EGD with biopsy of ulcers 12/28/[address] Rodriguez. avoid NSAIDS/ASA. -Continue PPI, Bentyl, and Carafate -Supportive treatment with IVF, antiemetics, and pain control prn -Consult GI for further recommendations -EGD in 2 months Likely postoperative fevers. SIRS ?: Had fevers 101.6 , tachycardia on 12/31/16 at night . We'll order CT abdomen with contrast discussed with Dr. Mauricio. Also order blood cultures, chest x-ray, UA. Started Zosyn IV antibiotics. Consult infectious disease for further recommendations. Discussed with Dr Gonzalo CONDON, likely fevers are post -op, however for now continue abx and follow up cultures. Headache: suspect secondary to above. Headaches improved significantly after the LP and shunt revision. -consider brain imaging however will defer to neurology -continue pain control prn Proptosis. TSH is normal. Hypokalemia: K 3.3, suspect secondary to recent vomiting and poor oral intake. Mag 2.0. -give po KCl replacement -repeat BMP, monitor K, replace as needed COPD: chronic, stable, does not appear to be in exacerbation -continue patient's Advair and Spiriva -Albuterol nebs prn Anxiety/Depression/Chronic Pain: chronic -continue patient's home meds including methocarbamol, gabapentin, duloxetine , nortriptyline, Seroquel, and Ativan prn -continue to monitor All other medical conditions stable, continue home medications as appropriate. DVT Prophylaxis: teds/SCDs Discussed with the patient, nurse, Dr. Mauricio and Julisa DANIELS from neurosurgical team Discussed with Dr Gonzalo CONDON specialist likely fevers are post -op, however for now continue abx and follow up cultures. DC plan: Improving, DC when cleared by Nadira Gaitan MD Jan 02, 2017 09:02
[2017-01-02 11:39] VITALS: BP 140/67; PULSE 101; RESP 20; TEMP 97.9; O2SAT 96
--- NOTE | 2017-01-02 12:46 | HHI.NSPN ---
History Chief Complaint: Headache, electric shock feeling down left leg Interval History Ms. Manuel is a 41-year-old woman who has a history of pseudotumor cerebri for which she underwent a WATER MAINTENANCE SUPERVISOR shunt placement. She also has history of chronic migraine headaches. She relates that she has been having abdominal pain and notices a cystic protuberance to the abdomen where the shunt terminates and presented to the emergency room. She has been evaluated by the neurosurgery service and the diagnosis was distal WATER MAINTENANCE SUPERVISOR shunt malfunction, rule out infection. Subcutaneous fluid was aspirated and sent for culture. She did have an abdominal CT scan and no masses were seen. The shunt catheter was seen to be herniating into the subcutaneous tissue containing fluid. 12/28: c/o of headaches, fluid collection from the shunt in the abdomen 12/29: no change, LP opening pressures 35. scheduled for revision of shunt tomorrow. 12/31: s/p revision of lumboperitoneal shunt yesterday, neuro stable, c/o mild headaches 01/01: febrile this am, highest temp 101.2 pt reports however she is feeling much better today with improved STEVENSON's, eating her breakfast comfortably, has mild tenderness in the abdomen when palpated 01/02: The patient is awake and alert this afternoon when seen. She does complain of a headache and abdominal pain. She also has an electric shock sensation that will go down the left lower extremity due to her sciatica. She did endorse nausea as well. System Review Comments GASTROINTESTINAL: Generalised abdominal pain. Nausea. MUSCULOSKELETAL: Low back pain. NEUROLOGICAL: Headache. Electric shock sensation down left leg. Exam Results 12/31/16 12/31/16 01/01/17 01/01/17 01/02/17 01/02/17 06:00 18:00 06:00 18:00 06:00 18:00 Intake Total 100 ml 480 ml 1420 ml 200 ml Balance 100 ml 480 ml 1420 ml 200 ml Intake Oral 480 ml 1420 ml IV Total 100 ml 200 ml # Voids 6 4 6 2 Vital Signs Date Time Temp Pulse Resp B/P (MAP) Pulse Ox O2 Delivery O2 Flow Rate FiO2 11/18/17 11:39 97.9 101 20 140/67 (91) 96 01/02/17 05:16 98.4 78 18 112/71 (85) 100 01/02/17 00:20 98.4 83 18 101/56 (71) 98 01/01/17 21:21 99.3 75 18 139/72 (94) 98 01/01/17 16:15 98.8 91 20 136/64 (88) 100 01/01/17 12:00 98.7 91 20 133/78 (96) 100 01/01/17 08:00 99.7 91 20 130/74 (92) 98 01/01/17 05:51 99.5 92 18 133/73 (93) 100 01/01/17 02:00 101.0 99 18 148/83 (104) 97 01/01/17 01:10 99.7 12/31/16 23:50 100.2 12/31/16 21:12 101.2 92 18 158/86 (110) 99 12/31/16 16:00 99.2 89 20 164/81 (108) 96 12/31/16 12:00 99.5 78 20 157/84 (108) 100 12/31/16 08:13 99.0 85 20 140/81 (100) 99 12/31/16 05:56 98.5 86 18 141/77 (98) 96 12/31/16 00:49 98.8 90 18 145/82 (103) 98 12/30/16 21:26 98.8 68 18 151/99 (116) 99 12/30/16 16:00 98.4 75 16 148/84 (105) 97 12/30/16 15:00 98.5 81 12 133/71 (91) 95 Room Air 12/30/16 14:45 83 12 115/56 (75) 95 12/30/16 14:30 93 12 138/63 (88) 100 12/30/16 14:15 85 16 117/57 (77) 100 12/30/16 14:10 98.7 111 10 129/73 (91) 98 Nasal Cannula 2 Physical Examination GENERAL: Well-developed female who appears minimally uncomfortable. Her affect is normal and she is not in any distress. HEENT: Normocephalic, atraumatic. PERRLA 2 mm brisk bilaterally, EOMI. MMM & pink, tongue midline to protrusion. GASTROINTESTINAL: Abdomen soft, diffusely TTP. Dressing to surgical incision dry & intact. MUSCULOSKELETAL: SOTO w/o difficulty, no evident deformity or clubbing. NEUROLOGICAL: AAOx3. Eyes open spontaneously, PERRLA 2 mm brisk, sensitive to light. Speech clear & appropriate. Follows simple commands w/o difficulty. CN II-XII appear grossly intact. Sensation is intact to light touch to all extremities. Motor strength is 5/5 to all major flexion & extension muscle groups. Lab, Micro, Other Results Recent Impressions Chest X-Ray 01/01/17 0000 Signed Impressions: Service Date/Time: Sunday, January 01, 2017 09:43 - CONCLUSION: 1. Basilar infiltrates with air bronchograms on the left. Exam is concerning for possible pneumonia. Abraham Mendes MD Abdomen/Pelvis CT 01/01/17 0000 Signed Impressions: Service Date/Time: Sunday, January 01, 2017 11:39 - CONCLUSION: 1. The previously noted focal fluid collection in the anterior abdominal wall appears to have been successfully drained with a small amount of residual fluid remaining and postsurgical changes. 2. There are 2 peritoneal catheter is within the mid to lower abdomen in place. 3. Otherwise, no other new or significant changes are demonstrated compared to the prior study. Mikhail Cuello MD Laboratory Tests Test 12/30/16 13:30 01/01/17 10:30 CSF Volume (Tube 1) 3.5 ML CSF Supernatant Color (tube 1) CLEAR CSF Gross Blood (Tube 1) 0 CSF WBC (Tube 1) 0 /MM3 CSF RBC (Tube 1) 0 /MM3 CSF Neutrophils 0 % CSF Lymphocytes 0 % CSF Glucose 59 MG/DL CSF Total Protein 11.1 MG/DL Urine Color YELLOW Urine Turbidity HAZY Urine pH 7.5 Urine Specific [place] 1.015 Urine Protein 30 mg/dL Urine Glucose (UA) NEG mg/dL Urine Ketones NEG mg/dL Urine Occult Blood NEG Urine Nitrite NEG Urine Bilirubin NEG Urine Urobilinogen LESS THAN 2.0 MG/DL Urine Leukocyte Esterase MOD Urine RBC 0-3 /hpf Urine WBC 9-14 /hpf Urine Squamous Epithelial Cells > 8 /hpf Urine Bacteria FEW /hpf Urine Trichomonas FEW Microscopic Urinalysis Comment CULTURE INDICATED Medical Decision Making Impression and Plan Impression: Pseudotumor cerebri with lumboperitoneal shunt placed in 2006, with distal tubing malfunction Intractable headaches, with distal tubing malfunction, s/p revision of LP shunt 12/30/16, headaches improved Patient doing well and remains neurologically intact, abdomen still diffusely tender. Afebrile past 24 hours. Peritoneal fluid culture w/o growth on final. CSF cultures & w/o any growth on final. Blood cultures w/o growth to date. Plan: Primary management per Hospitalist. Neuro checks. Keep Optifoam dressing on for 1 week. Continue piperacillin/tazobactam. Thien Dobson [facility] Jan 02, 2017 12:46
[2017-01-02 15:48] VITALS: BP 128/66; PULSE 98; RESP 20; TEMP 98.2; O2SAT 96
[2017-01-02 20:00] VITALS: BP 121/68; PULSE 97; RESP 18; TEMP 98.7; O2SAT 96
[2017-01-02] MEDS: NORTRIPTYLINE HCL 25 MG CAP PO SCH (20:41)
[2017-01-02] MEDS: QUEtiapine FUMARATE 25 MG TAB PO SCH (20:41)
[2017-01-03] VITALS: BP 123/69; PULSE 84; RESP 18; TEMP 98.1; O2SAT 99
[2017-01-03 04:00] VITALS: BP 120/66; PULSE 68; RESP 18; TEMP 98.1; O2SAT 100
[2017-01-03] MEDS: HYDROmorphone HCL PF 1 MG/ML VIAL IV PUSH PRN ×2 (04:34→08:29)
[2017-01-03] MEDS: PIPERACIL-TAZO 4.5 GM PREMIX 100 ML IV SCH ×2 (04:38→10:53)
[2017-01-03 08:00] VITALS: BP 113/63; PULSE 73; RESP 18; TEMP 98.1; O2SAT 97
[2017-01-03] MEDS: GABAPENTIN 300 MG CAP PO SCH ×2 (08:27→12:33)
[2017-01-03] MEDS: TOLTERODINE TARTRATE 4 MG CAP LA PO SCH (08:27)
[2017-01-03] MEDS: DULoxetine HCl DR 60 MG CAP PO SCH (08:27)
[2017-01-03] MEDS: DICYCLOMINE HCL 20 MG TAB PO SCH (08:27)
[2017-01-03] MEDS: METHOCARBAMOL 500 MG TAB PO SCH ×2 (08:27→12:33)
[2017-01-03] MEDS: SUCRALFATE 1 GM/10 ML CUP PO SCH ×2 (08:27→12:33)
[2017-01-03] MEDS: PANTOPRAZOLE SOD 40 MG DELAYED RELEASE TAB PO SCH (08:28)
[2017-01-03] MEDS: DOCUSATE SODIUM 50 MG/SENNA 8.6 MG TAB PO SCH (08:28)
[2017-01-03] MEDS: BUDESONIDE-FORMOTEROL 160/4.5 MCG INHALER INH SCH (08:29)
[2017-01-03] MEDS: TIOTROPIUM BROMIDE 18 MCG INH INH SCH (08:29)
[2017-01-03] MEDS: SODIUM CHLORIDE 0.9% FLUSH 10 ML FLUSH IV FLUSH SCH (08:29)
[2017-01-03] MEDS: POLYETHYLENE GLYCOL 17 GM PKG PO SCH (08:30)
[2017-01-03] MEDS ORDERED: FERR325T18 PO (08:41)
[2017-01-03] MEDS ORDERED: RESP: ALBUTEROL 2.5 MG/IPRATROPIUM 0.5 MG NEB (PRN) NEB (08:45)
--- NOTE | 2017-01-03 08:45 | HHI.PR ---
Subjective Remarks Patient ambulating in the room with some difficulty say sshe has abdominal pain .Still nauseated did not vomit , tolerants food. Feels tired. No fever or chills . Says she is not coughing and no sob. Encouraged IS. Objective Vitals Vital Signs Date Time Temp Pulse Resp B/P (MAP) Pulse Ox O2 Delivery O2 Flow Rate FiO2 01/03/17 08:00 98.1 73 18 113/63 (80) 97 01/03/17 04:00 98.1 68 18 120/66 (84) 100 01/03/17 00:00 98.1 84 18 123/69 (87) 99 01/02/17 20:00 98.7 97 18 121/68 (85) 96 01/02/17 15:48 98.2 98 20 128/66 (86) 96 01/02/17 11:39 97.9 101 20 140/67 (91) 96 I/O 01/02/17 01/02/17 01/02/17 01/03/17 01/03/17 01/03/17 07:00 15:00 23:00 07:00 15:00 23:00 Intake Total 100 ml 1200 ml Balance 100 ml 1200 ml Intake Oral 900 ml IV Total 100 ml 300 ml # Voids 2 5 Result Diagram: 12/30/16 0756 12/30/16 0756 Imaging Last Impressions Chest X-Ray 01/01/17 0000 Signed Impressions: Service Date/Time: Sunday, January 01, 2017 09:43 - CONCLUSION: 1. Basilar infiltrates with air bronchograms on the left. Exam is concerning for possible pneumonia. Abraham Mendes MD Abdomen/Pelvis CT 01/01/17 0000 Signed Impressions: Service Date/Time: Sunday, January 01, 2017 11:39 - CONCLUSION: 1. The previously noted focal fluid collection in the anterior abdominal wall appears to have been successfully drained with a small amount of residual fluid remaining and postsurgical changes. 2. There are 2 peritoneal catheter is within the mid to lower abdomen in place. 3. Otherwise, no other new or significant changes are demonstrated compared to the prior study. Mikhail Cuello MD Lumbar Puncture Fluoroscopy 12/29/16 0000 Signed Impressions: Service Date/Time: Thursday, December 29, 2016 09:40 - CONCLUSION: Uncomplicated fluoroscopically guided lumbar puncture with pressures as above. Ru Medina MD Objective Remarks GENERAL: Well-nourished, well-developed middle aged female patient in NAD. SKIN: Warm and dry. No rash. NECK: Supple. Trachea midline. CARDIOVASCULAR: Regular rate and rhythm. S1, S2 noted. No murmur appreciated. RESPIRATORY: No accessory muscle use. Clear to auscultation. Breath sounds equal bilaterally. GASTROINTESTINAL: Abdomen soft, nondistended, mild diffuse TTP with shunt protrusion into abdominal wall. Normoactive bowel sounds x4. MUSCULOSKELETAL: No obvious deformities. Extremities without clubbing, cyanosis , or edema. NEUROLOGICAL: Awake and alert. Negative Brudzinski sign, negative Kernig sign. No obvious cranial nerve deficits. Motor grossly within normal limits. Moves all extremities spontaneously. Normal speech. Procedures LP by IR Shunt revision by Dr Mauricio A/P Problem List: (1) executive vp shunt malfunction (2) Intractable abdominal pain ICD Code: R10.9 - Unspecified abdominal pain Status: Acute Assessment and Plan 41-year-old female with history of pseudotumor cerebri s/p TRANSPORTATION SUPERVISOR shunt, sarcoidosis , COPD, tobacco use, presents with ongoing abdominal pain, nausea, and vomiting. Bibasilar pneumonia by CXR. Likely postoperative fevers. POss sepsis had fevers tachycardia and bibasilar PNA on CXR : Had fevers 101.6 , tachycardia on at night . CT abdomen with contrast findings discussed with Dr. Mauricio and Dr Dawson from ID. Blood cultures so far NTD . UA with poss UTI. Started Zosyn IV antibiotics. Consulted infectious disease for further recommendations. Discussed with Dr Sánchez ID, likely fevers are post -op, however for now continue abx and follow up cultures. Distal TRANSPORTATION SUPERVISOR Shunt Malfunction: patient with headache/nausea/vomiting/abdominal pain, hx of TRANSPORTATION SUPERVISOR shunt. Abd/pelvis CT images reviewed, shows shunt catheter herniating into the subcutaneous tissues containing fluid. -Consult general surgery, Dr. Aviles, recommends neurosurgery evaluation -Consulted neurology -Consider further imaging including head CT/shuntogram -Status post aspiration of the distal TRANSPORTATION SUPERVISOR shunt. Per neurosurgery, if negative for infection may need revision. If infected needs to be removed and replaced after treatment of infection -Supportive treatment with IVF, antiemetics, and pain control with oxycodone prn and IV dilaudid prn breakthrough pain -Neurosurgery consulted and ff. S/P LP by IR and Shunt revision by Dr Mauricio - Received extra dose Dilaudid after LP - DC IV Dilaudid 0.5 mg breakthrough pain. Continue oxycodone per pain scale. Headache: suspect secondary to above. Headaches improved significantly after the LP and shunt revision. -consider brain imaging however will defer to neurology -continue pain control prn Abdominal Pain/Nausea/Vomiting 2/2 Pyloric channel and duodenal bulb ulcer. Resolved now tolerates food S/P EGD with biopsy of ulcers 12/28/[address] Rodriguez. avoid NSAIDS/ASA. -Continue PPI, Bentyl, and Carafate -Supportive treatment with IVF, antiemetics, and pain control prn -Consult GI for further recommendations -EGD in 2 months Proptosis. TSH is normal. Hypokalemia: K 3.3, suspect secondary to recent vomiting and poor oral intake. Mag 2.0. -give po KCl replacement -repeat BMP, monitor K, replace as needed COPD: chronic, stable, does not appear to be in exacerbation -continue patient's Advair and Spiriva -Albuterol nebs prn Anxiety/Depression/Chronic Pain: chronic -continue patient's home meds including methocarbamol, gabapentin, duloxetine , nortriptyline, Seroquel, and Ativan prn -continue to monitor All other medical conditions stable, continue home medications as appropriate. DVT Prophylaxis: teds/SCDs Discussed with the patient, nurse, Dr. Mauricio and Julisa DANIELS from neurosurgical team Discussed with Dr Sáncehz ID specialist likely fevers are post -op, however for now continue abx and follow up cultures. DC plan: Improving, DC when cleared by ID Blood cx so far NTD, monitor CosmaNadira MD Jan 03, 2017 08:45
--- NOTE | 2017-01-03 08:47 | HHI.NSPN ---
History Chief Complaint: Headache, slight nausea Interval History Ms. Manuel is a 41-year-old woman who has a history of pseudotumor cerebri for which she underwent a HOUSE WRECKER shunt placement. She also has history of chronic migraine headaches. She relates that she has been having abdominal pain and notices a cystic protuberance to the abdomen where the shunt terminates and presented to the emergency room. She has been evaluated by the neurosurgery service and the diagnosis was distal HOUSE WRECKER shunt malfunction, rule out infection. Subcutaneous fluid was aspirated and sent for culture. She did have an abdominal CT scan and no masses were seen. The shunt catheter was seen to be herniating into the subcutaneous tissue containing fluid. 12/28: c/o of headaches, fluid collection from the shunt in the abdomen 12/29: no change, LP opening pressures 35. scheduled for revision of shunt tomorrow. 12/31: s/p revision of lumboperitoneal shunt yesterday, neuro stable, c/o mild headaches 01/01: febrile this am, highest temp 101.2 pt reports however she is feeling much better today with improved STEVENSON's, eating her breakfast comfortably, has mild tenderness in the abdomen when palpated 01/02: The patient is awake and alert this afternoon when seen. She does complain of a headache and abdominal pain. She also has an electric shock sensation that will go down the left lower extremity due to her sciatica. She did endorse nausea as well. 01/03: This morning the patient is doing well. She does have a headache and slight nausea. The abdomen is still diffusely tender. She reports that she is having bowel movements. System Review Comments GASTROINTESTINAL: Generalised abdominal pain. Nausea. MUSCULOSKELETAL: Low back pain. NEUROLOGICAL: Headache. Exam Results 01/01/17 01/01/17 01/02/17 01/02/17 01/03/17 01/03/17 06:00 18:00 06:00 18:00 06:00 18:00 Intake Total 1420 ml 200 ml 1200 ml Balance 1420 ml 200 ml 1200 ml Intake Oral 1420 ml 900 ml IV Total 200 ml 300 ml # Voids 6 2 5 Vital Signs Date Time Temp Pulse Resp B/P (MAP) Pulse Ox O2 Delivery O2 Flow Rate FiO2 01/03/17 08:00 98.1 73 18 113/63 (80) 97 01/03/17 04:00 98.1 68 18 120/66 (84) 100 01/03/17 00:00 98.1 84 18 123/69 (87) 99 01/02/17 20:00 98.7 97 18 121/68 (85) 96 01/02/17 15:48 98.2 98 20 128/66 (86) 96 01/02/17 11:39 97.9 101 20 140/67 (91) 96 01/02/17 05:16 98.4 78 18 112/71 (85) 100 01/02/17 00:20 98.4 83 18 101/56 (71) 98 01/01/17 21:21 99.3 75 18 139/72 (94) 98 01/01/17 16:15 98.8 91 20 136/64 (88) 100 01/01/17 12:00 98.7 91 20 133/78 (96) 100 01/01/17 08:00 99.7 91 20 130/74 (92) 98 01/01/17 05:51 99.5 92 18 133/73 (93) 100 01/01/17 02:00 101.0 99 18 148/83 (104) 97 01/01/17 01:10 99.7 12/31/16 23:50 100.2 12/31/16 21:12 101.2 92 18 158/86 (110) 99 12/31/16 16:00 99.2 89 20 164/81 (108) 96 12/31/16 12:00 99.5 78 20 157/84 (108) 100 Physical Examination GENERAL: Well-developed female who is more comfortable today. Her affect is normal and she is not in any distress. HEENT: Normocephalic, atraumatic. PERRLA 2 mm brisk bilaterally, EOMI. MMM & pink, tongue midline to protrusion. GASTROINTESTINAL: Abdomen soft, diffusely TTP. Dressing to surgical incision dry & intact. MUSCULOSKELETAL: SOTO w/o difficulty, no evident deformity or clubbing. NEUROLOGICAL: AAOx3. Eyes open spontaneously, PERRLA 2 mm brisk, sensitive to light. Speech clear & appropriate. Follows simple commands w/o difficulty. CN II-XII appear grossly intact. Sensation is intact to light touch to all extremities. Motor strength is 5/5 to all major flexion & extension muscle groups. Lab, Micro, Other Results Recent Impressions Chest X-Ray 01/01/17 0000 Signed Impressions: Service Date/Time: Sunday, January 01, 2017 09:43 - CONCLUSION: 1. Basilar infiltrates with air bronchograms on the left. Exam is concerning for possible pneumonia. Abraham Mendes MD Abdomen/Pelvis CT 01/01/17 0000 Signed Impressions: Service Date/Time: Sunday, January 01, 2017 11:39 - CONCLUSION: 1. The previously noted focal fluid collection in the anterior abdominal wall appears to have been successfully drained with a small amount of residual fluid remaining and postsurgical changes. 2. There are 2 peritoneal catheter is within the mid to lower abdomen in place. 3. Otherwise, no other new or significant changes are demonstrated compared to the prior study. Mikhail Cuello MD Laboratory Tests Test 01/01/17 10:30 Urine Color YELLOW Urine Turbidity HAZY Urine pH 7.5 Urine Specific [place] 1.015 Urine Protein 30 mg/dL Urine Glucose (UA) NEG mg/dL Urine Ketones NEG mg/dL Urine Occult Blood NEG Urine Nitrite NEG Urine Bilirubin NEG Urine Urobilinogen LESS THAN 2.0 MG/DL Urine Leukocyte Esterase MOD Urine RBC 0-3 /hpf Urine WBC 9-14 /hpf Urine Squamous Epithelial Cells > 8 /hpf Urine Bacteria FEW /hpf Urine Trichomonas FEW Microscopic Urinalysis Comment CULTURE INDICATED Medical Decision Making Impression and Plan Impression: Pseudotumor cerebri with lumboperitoneal shunt placed in 2006, with distal tubing malfunction Intractable headaches, with distal tubing malfunction, s/p revision of LP shunt 12/30/16, headaches improved Patient continues to do well and remains neurologically intact, abdomen still diffusely tender. Afebrile past 24 hours. Peritoneal fluid culture w/o growth on final. CSF cultures & w/o any growth on final. Blood cultures w/o growth to date. Plan: Primary management per Hospitalist. Neuro checks. Keep Optifoam dressing on for 1 week. Continue piperacillin/tazobactam. Thien Dobson Jan 03, 2017 08:47
[2017-01-03] MEDS ORDERED: FERROUS SULFATE 325 MG (65 MG ELEMENTAL IRON) TAB PO SCH (09:00)
[2017-01-03] MEDS ORDERED: HYDROmorphone HCL PF 1 MG/ML VIAL IV PUSH PRN (09:45)
[2017-01-03] MEDS: ONDANSETRON HCL 4 MG/2 ML VIAL IVP PRN (10:52)
[2017-01-03 12:00] VITALS: BP 106/69; PULSE 92; RESP 18; TEMP 98.3; O2SAT 98
--- NOTE | 2017-01-03 13:04 | HHI.DS ---
Discharge Summary Admission Date Dec 28, 2016 at 12:01 Discharge Date: Jan 03, 2017 Admitting Diagnosis intractable pain, abdominal wall CSFoma (1) evp global product leadership shunt malfunction (2) Intractable abdominal pain ICD Code: R10.9 - Unspecified abdominal pain Status: Acute Procedures LP by IR Shunt revision by Dr Mauricio Brief History - From Admission Written by Bree Lamar, acting as scribe for Dr. Ta on 12/26/16 at 09: 29. This note was transcribed by scribe Bree Lamar. I, Dr. Naveen Ta personally performed the history, physical exam, and medical decision making; and confirmed the accuracy of the information in the transcribed note. Authenticated by Dr. Naveen Ta on 12/26/16 at 09:38. 41-year-old female with history of pseudotumor cerebri s/p BILINGUAL MANAGER shunt, sarcoidosis , COPD, tobacco use, presents with ongoing abdominal pain, nausea, and vomiting. The patient reports diffuse burning abdominal pain associated with nausea and vomiting. She has not been able to tolerate oral intake for 4 days. She has been taking Lortab at home with no relief of the pain. Denies fevers/ chills. She also reports constant sharp stabbing left sided headache. Denies any visual changes, lightheadedness, or dizziness. She denies any dysuria or suprapubic pain. She also reports constipation with no bowel movement in 1 week. The patient reports she has been seeing Dr. Vences who has referred her to general surgery however she has had no success. She states she's also discussed with her neurosurgeon Dr. Pennington in [place], [place] who reportedly refuses to see the patient. The patient has no other medical complaints at this time including no chest pain, shortness of breath, or urinary complaints. CBC/BMP: 12/30/16 0756 12/30/16 0756 Significant Findings Laboratory Tests Test 01/01/17 10:30 Urine Turbidity HAZY (CLEAR) Urine Protein 30 mg/dL (NEG-TRACE) Urine Leukocyte Esterase MOD (NEG) Urine WBC 9-14 /hpf (0-5) Urine Squamous Epithelial Cells > 8 /hpf (0-5) Urine Bacteria FEW /hpf (NONE) Urine Trichomonas FEW (NONE) Imaging Last Impressions Chest X-Ray 01/01/17 0000 Signed Impressions: Service Date/Time: Sunday, January 01, 2017 09:43 - CONCLUSION: 1. Basilar infiltrates with air bronchograms on the left. Exam is concerning for possible pneumonia. Abraham Mendes MD Abdomen/Pelvis CT 01/01/17 0000 Signed Impressions: Service Date/Time: Sunday, January 01, 2017 11:39 - CONCLUSION: 1. The previously noted focal fluid collection in the anterior abdominal wall appears to have been successfully drained with a small amount of residual fluid remaining and postsurgical changes. 2. There are 2 peritoneal catheter is within the mid to lower abdomen in place. 3. Otherwise, no other new or significant changes are demonstrated compared to the prior study. Mikhail Cuello MD Lumbar Puncture Fluoroscopy 12/29/16 0000 Signed Impressions: Service Date/Time: Thursday, December 29, 2016 09:40 - CONCLUSION: Uncomplicated fluoroscopically guided lumbar puncture with pressures as above. Ru Medina MD PE at Discharge GENERAL: Well-nourished, well-developed middle aged female patient in [facility]. SKIN: Warm and dry. No rash. NECK: Supple. Trachea midline. CARDIOVASCULAR: Regular rate and rhythm. S1, S2 noted. No murmur appreciated. RESPIRATORY: No accessory muscle use. Clear to auscultation. Breath sounds equal bilaterally. GASTROINTESTINAL: Abdomen soft, nondistended, mild diffuse TTP with shunt protrusion into abdominal wall. Normoactive bowel sounds x4. MUSCULOSKELETAL: No obvious deformities. Extremities without clubbing, cyanosis , or edema. NEUROLOGICAL: Awake and alert. Negative Brudzinski sign, negative Kernig sign. No obvious cranial nerve deficits. Motor grossly within normal limits. Moves all extremities spontaneously. Normal speech. Hospital Course 41-year-old female with history of pseudotumor cerebri s/p BILINGUAL MANAGER shunt, sarcoidosis , COPD, tobacco use, presents with ongoing abdominal pain, nausea, and vomiting. 41-year-old female with history of pseudotumor cerebri s/p BILINGUAL MANAGER shunt, sarcoidosis , COPD, tobacco use, presents with ongoing abdominal pain, nausea, and vomiting. Bibasilar pneumonia by CXR. Likely postoperative fevers. POss sepsis had fevers tachycardia and bibasilar PNA on CXR : Had fevers 101.6 , tachycardia on at night . CT abdomen with contrast findings discussed with Dr. Mauricio and Dr Dawson from ID. Blood cultures so far NTD . UA with poss UTI. Started Zosyn IV antibiotics. Consulted infectious disease for further recommendations. Discussed with Dr Sánchez ID, likely fevers are post -op, however for now continue abx and follow up cultures. Reevaluated by Dr Sánchez ID specialist , no need for abx at DC. DC antibiotic. Distal BILINGUAL MANAGER Shunt Malfunction: patient with headache/nausea/vomiting/abdominal pain, hx of BILINGUAL MANAGER shunt. Abd/pelvis CT images reviewed, shows shunt catheter herniating into the subcutaneous tissues containing fluid. -Consult general surgery, Dr. Aviles, recommends neurosurgery evaluation -Consulted neurology -Consider further imaging including head CT/shuntogram -Status post aspiration of the distal BILINGUAL MANAGER shunt. Per neurosurgery, if negative for infection may need revision. If infected needs to be removed and replaced after treatment of infection -Supportive treatment with IVF, antiemetics, and pain control with oxycodone prn and IV dilaudid prn breakthrough pain -Neurosurgery consulted and ff. S/P LP by IR and Shunt revision by Dr Mauricio - Received extra dose Dilaudid after LP - DC IV Dilaudid 0.5 mg breakthrough pain. Continue oxycodone per pain scale. Headache: suspect secondary to above. Headaches improved significantly after the LP and shunt revision. -consider brain imaging however will defer to neurology -continue pain control prn Abdominal Pain/Nausea/Vomiting 2/2 Pyloric channel and duodenal bulb ulcer. Resolved now tolerates food S/P EGD with biopsy of ulcers 12/28/[address] Rodriguez[address] avoid NSAIDS/ASA. -Continue PPI, Bentyl, and Carafate -Supportive treatment with IVF, antiemetics, and pain control prn -Consult GI for further recommendations -EGD in 2 months Proptosis. TSH is normal. Hypokalemia: K 3.3, suspect secondary to recent vomiting and poor oral intake. Mag 2.0. -give po KCl replacement -repeat BMP, monitor K, replace as needed COPD: chronic, stable, does not appear to be in exacerbation -continue patient's Advair and Spiriva -Albuterol nebs prn Anxiety/Depression/Chronic Pain: chronic -continue patient's home meds including methocarbamol, gabapentin, duloxetine , nortriptyline, Seroquel, and Ativan prn -continue to monitor All other medical conditions stable, continue home medications as appropriate. DVT Prophylaxis: teds/SCDs Discussed with the patient, nurse, Dr. Mauricio and Julisa DANIELS from neurosurgical team Discussed with Dr Sánchez ID specialist likely fevers are post -op, however for now continue abx and follow up cultures. DC plan: Improved afebrile, no cough, cleared by consultants to follow up as OP with PCP and consultants. Pt Condition on Discharge: Stable Discharge Disposition: Discharge Home Discharge Time: > 30 minutes Discharge Instructions DIET: Follow Instructions for: As Tolerated, No Restrictions Activities you can perform: Regular-No Restrictions Follow up Referrals: Neurology with Shamar Vences PhD Neurosurgery with Thee Mauricio MD PCP Follow-up - 2-3 Days New Medications: Ferrous Sulfate (Ferrous Sulfate) 325 Mg (65 Mg Iron) Tablet 325 MG PO DAILY for Nutritional Supplement, #30 TAB 0 Refills Pantoprazole (Protonix) 40 Mg Tab 40 MG PO DAILY for Ulcer Prevention, #30 TAB 0 Refills Sucralfate Liq (Sucralfate Liq) 1 Gram/10 Ml [place] 1 GM PO ACHS for gi for 30 Days, BOX Continued Medications: Albuterol 8.5 GM Inh (Proair Hfa 8.5 GM Inh) 90 Mcg/Act Aer 2 PUFF INH Q6H PRN for SHORTNESS OF BREATH, #1 INHALER 5 Refills 108 mcg/actuation Dicyclomine (Dicyclomine) 20 Mg Tab 20 MG PO BID for Bowel Management, #28 TAB [address] (Duloxetine DR) 60 Mg Capdr 60 MG PO DAILY for Chronic Pain, #30 CAP 0 Refills Please return to clinic for annual exam and labs. Fluticasone-Salmeterol Inh (Advair Diskus Inh) 500-50 Mcg/Blist Aer 1 PUFF INH BID, #1 INHALER 0 Refills Rinse mouth after use. Gabapentin (Neurontin) 300 Mg Cap 300 MG PO TID, #90 CAP 0 Refills Lorazepam (Ativan) 0.5 Mg Tab 0.5 MG PO Q8H PRN for ANXIETY AND/OR AGITATION, TAB 0 Refills Methocarbamol (Methocarbamol) 500 Mg Tab 500 MG PO TID for Muscle Spasm, #90 TAB 0 Refills Mirabegron (Myrbetriq) 50 Mg Tab 50 MG PO DAILY for Urinary Symptom Managemen, #30 TAB 0 Refills Nortriptyline (Nortriptyline) 25 Mg Cap 25 MG PO HS, #30 CAP 2 Refills Omeprazole (Omeprazole) 40 Mg Cap 40 MG PO BIDAC, #60 CAP 0 Refills Oxycodone (Oxycodone) 10 Mg Tab 10 MG PO Q6H PRN for PAIN, #15 TAB 0 Refills (This prescription has been renewed ) Quetiapine (Quetiapine) 25 Mg Tab 25 MG PO HS, #90 TAB 1 Refill Tiotropium Inh (Spiriva Handihaler) 18 Mcg Cap 18 MCG INH DAILY for COPD, #90 CAP 1 Refill Varenicline (Chantix) 1 Mg Tab 1 MG PO BIDPC for Smoking cessation, #60 TAB 0 Refills Discontinued Medications: Xxvexobpqb-Nybwitcnkwkdc-Fbdejmsu (Fioricet) 50-300-40 Mg Cap 2 CAP PO Q4H PRN for HEADACHE, CAP 0 Refills Nadira Daily MD Jan 03, 2017 13:04
--- NOTE | 2017-01-03 13:38 | HHI.IDPN ---
Subjective Subjective Remarks pt is now afebrile, still very tender in stomach, but states her pain is better she denies any nause, vomiting or diarrhea Antibiotics zosyn Allergies: Coded Allergies: morphine (Unverified Allergy, Severe, WELTS, 12/26/16) MRI PRECAUTION (Verified Adverse Reaction, Severe, SPETZLER SHUNT VALVE PER YAMILE. PER [employer] NOT COMPAT., 12/26/16) Objective . Vital Signs Date Time Temp Pulse Resp B/P (MAP) Pulse Ox O2 Delivery O2 Flow Rate FiO2 01/03/17 08:00 98.1 73 18 113/63 (80) 97 01/03/17 04:00 98.1 68 18 120/66 (84) 100 01/03/17 00:00 98.1 84 18 123/69 (87) 99 01/02/17 20:00 98.7 97 18 121/68 (85) 96 01/02/17 15:48 98.2 98 20 128/66 (86) 96 01/03/17 01/03/17 01/04/17 15:00 23:00 07:00 # Voids 5 . Microbiology Date/Time Source Procedure Growth Status 01/01/17 14:50 Blood Peripheral Aerobic Blood Culture - Preliminary NO GROWTH IN 2 DAYS Resulted 01/01/17 14:50 Blood Peripheral Anaerobic Blood Culture - Preliminary NO GROWTH IN 2 DAYS Resulted 01/01/17 14:50 Blood Peripheral Aerobic Blood Culture - Preliminary NO GROWTH IN 2 DAYS Resulted 01/01/17 14:50 Blood Peripheral Anaerobic Blood Culture - Preliminary NO GROWTH IN 2 DAYS Resulted 01/01/17 10:30 Urine Clean Catch Urine Culture - Final NO GROWTH IN 48 HOURS. Complete Imaging Last Impressions Chest X-Ray 01/01/17 0000 Signed Impressions: Service Date/Time: Sunday, January 01, 2017 09:43 - CONCLUSION: 1. Basilar infiltrates with air bronchograms on the left. Exam is concerning for possible pneumonia. Abraham Mendes MD Abdomen/Pelvis CT 01/01/17 0000 Signed Impressions: Service Date/Time: Sunday, January 01, 2017 11:39 - CONCLUSION: 1. The previously noted focal fluid collection in the anterior abdominal wall appears to have been successfully drained with a small amount of residual fluid remaining and postsurgical changes. 2. There are 2 peritoneal catheter is within the mid to lower abdomen in place. 3. Otherwise, no other new or significant changes are demonstrated compared to the prior study. Mikhail Cuello MD Lumbar Puncture Fluoroscopy 12/29/16 0000 Signed Impressions: Service Date/Time: Thursday, December 29, 2016 09:40 - CONCLUSION: Uncomplicated fluoroscopically guided lumbar puncture with pressures as above. Ru Medina MD Physical Exam CONSTITUTIONAL/GENERAL: This is an adequately nourished patient, in no apparent distress. TUBES/LINES/DRAINS: SKIN: No jaundice, rashes, or lesions. EYES: Pupils equal and round and reactive. Extraocular motions intact. No scleral icterus. No injection or drainage. Fundi not examined. CARDIOVASCULAR: Regular rate and rhythm without murmurs, gallops, or rubs. No JVD. Peripheral pulses symmetric. RESPIRATORY/CHEST: Symmetric, unlabored respirations. Clear to auscultation. Breath sounds equal bilaterally. No wheezes, rales, or rhonchi. GASTROINTESTINAL: Abdomen soft, markedly tender over the surgical site , somewhat idurated ? hematoma No hepato-splenomegaly, or palpable masses. No guarding. Bowel sounds present. MUSCULOSKELETAL: Extremities without clubbing, cyanosis, or edema. NEUROLOGICAL: Awake and alert. Motor and sensory grossly within normal limits. Follows commands. Clear speech. Moves all extremities. PSYCHIATRIC: calm and cooperative Assessment & Plan Remarks Pseudotumor cerebri. lumbar peritoneal shunt malfunction Sp revision of lumbarperitoneal shunt with replacement of peritoneal catheter POD #2 Fever, post op : resolved Abdominal pain, CT w/o acute abnormalities - improving gradually dc abx monitor clx untill final f/u with neurosurgeon OK to dc home off abx Discussed Condition With Annmarie Redmond MD Jan 03, 2017 13:38
== END 2017-01-03 15:05 | disposition home or self-care (01) | DRG 981 ==
LOC: NEPC 04:25 → NEDA 06:19 → NEPFCDU 07:29 → N05A 12-27 16:43 → OBSVTOIN 12-28 12:01
PROVIDERS: ADMIT Hospitalist; ATTEND Hospitalist
PROC: 0J983ZX Drainage of Abdomen Subcutaneous Tissue and Fascia, Percutaneous Approach, Diagnostic (ICD-10-PCS; 2016-12-26)
PROC: 0DB68ZX Excision of Stomach, Via Natural or Artificial Opening Endoscopic, Diagnostic (ICD-10-PCS; 2016-12-28)
PROC: 009U3ZZ Drainage of Spinal Canal, Percutaneous Approach (ICD-10-PCS; 2016-12-29)
PROC: 0WWG0JZ Revision of Synthetic Substitute in Peritoneal Cavity, Open Approach (ICD-10-PCS; principal; 2016-12-30 11:53)
DX: T85.01XA Breakdown (mechanical) of ventricular intracranial (communicating) shunt, initial encounter (principal); J18.9 Pneumonia, unspecified organism; J44.0 Chronic obstructive pulmonary disease with (acute) lower respiratory infection; K26.9 Duodenal ulcer, unspecified as acute or chronic, without hemorrhage or perforation; H05.20 Unspecified exophthalmos; K25.9 Gastric ulcer, unspecified as acute or chronic, without hemorrhage or perforation; D86.9 Sarcoidosis, unspecified; G93.2 Benign intracranial hypertension; Y75.2 Prosthetic and other implants, materials and neurological devices associated with adverse incidents; E87.6 Hypokalemia; G89.29 Other chronic pain; F32.9 Major depressive disorder, single episode, unspecified; F41.9 Anxiety disorder, unspecified; K59.00 Constipation, unspecified; F17.210 Nicotine dependence, cigarettes, uncomplicated; G43.909 Migraine, unspecified, not intractable, without status migrainosus; Z87.11 Personal history of peptic ulcer disease
CPT/HCPCS: 62270; 71010; 74177; 77003; 80048; 80053; 81001; 82945; 83690; 83735; 84157; 84436; 84443; 85007; 85025; 85027; 85610; 87040; 87070; 87086; 87205; 88305; 88312; 89051; 94150; 96361; 96365; 96366; 96375; 96376; J1170; C1750; C9113; G0378; J0131; J0690; J1100; J1580; J2250; J2370; J2405; J2543; J2710; J3010; J3480; J7030; Q9967